=== PATIENT | female | born 1935 | race Caucasian/White ===

== ENCOUNTER → 2016-09-16 | Outpatient (CLI) | payer BC ==
[~2016-09-16] MED LIST: ATOR-24 PO; CLTP PO; CRANBERRY PO; ENAL10TA88 PO; EVS60 PO; FURO20TA PO; LCTX PO; METO1TAB69 PO; MULT-506 PO; OXYC-292 PO; PRLSR20 PO; RSTOPS OP; WARF3TAB PO
--- NOTE | 2016-09-16 15:00 | MAMMOGRAPHY REPORT ---
BILATERAL DIGITAL SCREENING MAMMOGRAM WITH CAD: 09/16/2016 CLINICAL HISTORY: Routine screening. Patient has no complaints. TECHNIQUE: Bilateral CC and MLO views were obtained. Current study was also evaluated with a Comput er Aided Detection (CAD) system. COMPARISON: Comparison is made to exams dated: 09/13/2015 mammogram, 07/26/2013 mammogram, 07/27/2014 mammogram, 07/22/2012 mammogram, 07/22/2011 mammogram, and 07/17/2010 mammogram - [facility]. BREAST COMPOSITION: There are scattered areas of fibroglandular density in both breasts. FINDINGS: A pacemaker projects over the superior left pectoralis muscle on the MLO views. There are minimal vascular calcifications in the breasts. No suspicious mass, architectural distortion or cl uster of microcalcifications is seen. IMPRESSION: ACR BI-RADS CATEGORY 1: NEGATIVE There is no mammographic evidence of malignancy. A 1 year screening mammogram is recommended. The p atient will receive written notification of the results. Approximately 10% of breast cancers are not detected with mammography. A negative mammographic repor t should not delay biopsy if a clinically suggestive mass is present. Jesika Hope M.D. ay/:09/16/2016 13:28:10 Asset Protection Detective: Manisha AJ(Eula)(M), [facility] letter sent: Normal 1/2 BI-RADS Code: ACR BI-RADS Category 1: Negative
== END | disposition home or self-care (01) ==
LOC: C.MAMM 11:17
PROVIDERS: ATTEND Obstetrics & Gynecology
DX: Z12.31 Encounter for screening mammogram for malignant neoplasm of breast (principal)

== ENCOUNTER → 2016-11-28 | Outpatient (CLI) | payer BC ==
[~2016-11-28] MED LIST changes: +METO100T44 PO; -METO1TAB69 PO
[2016-11-28 09:29] LABS: BASO ABS # 0.07 K/uL (0-0.2); COMPLETE YES; EOS % 4.7 %; HEMATOCRIT 41.2 % (37-47); IG% 0.3 %; LYMPH % 35.5 %; LYMPH ABS # 2.56 K/uL (1.2-3.4); MEAN CORPUSCULAR HEMOGLOBIN 31.5 pg (25-34); MEAN CORPUSCULAR HGB CONC 35.4 g/dl (32-36); MEAN PLATELET VOLUME 10.5 fL (7.4-10.4); NEUT % 49.5 %; PLATELET COUNT 239 K/uL (130-400); RED BLOOD COUNT 4.63 M/uL (4.2-5.4); WHITE BLOOD COUNT 7.21 K/uL (4.8-10.8)
[2016-11-28 09:57] LABS: ALT/SGPT 59 U/L (12-78); BLOOD UREA NITROGEN 15 mg/dl (7-18); BUN/CREATININE RATIO 18.4 (10-20); CALCIUM 8.8 mg/dl (8.5-10.1); CARBON DIOXIDE 30 mmol/L (21-32); CHLORIDE 106 mmol/L (98-107); CHOLESTEROL 188 mg/dl (0-200); CREATININE 0.81 mg/dl (0.60-1.20); GLUCOSE 108 mg/dl (70-99); POTASSIUM 3.9 mmol/L (3.5-5.1); SODIUM 141 mmol/L (136-145); TRIGLYCERIDES 182 mg/dl (0-150); VERY LOW DENSITY LIPOPROT CALC 36 mg/dl
[2016-11-28 10:07] LABS: ALKALINE PHOSPHATASE 87 U/L (45-117); AST/SGOT 41 U/L (15-37); CHOLESTEROL/HDL RATIO 3.8; HDL CHOLESTEROL 49 mg/dl; LDL CHOLESTEROL CALCULATED 103 mg/dl
[2016-11-28 10:15] LABS: ESTIMATED AVERAGE GLUCOSE 134 mg/dl; HA1C FLAG Normal (Normal)
[2016-11-28 10:40] LABS: RATIO 14.1 mcg/mg (0-30.0)
== END | disposition home or self-care (01) ==
LOC: C.LAB1850 08:51
PROVIDERS: ATTEND Internal Medicine
DX: M81.0 Age-related osteoporosis without current pathological fracture (principal); I48.0 Paroxysmal atrial fibrillation; E11.49 Type 2 diabetes mellitus with other diabetic neurological complication; E78.5 Hyperlipidemia, unspecified

== ENCOUNTER → 2017-02-13 | Outpatient (CLI) | payer BC | END | disposition home or self-care (01) | LOC: C.MAMM 10:45 | PROVIDERS: ATTEND Internal Medicine | DX: M81.0 Age-related osteoporosis without current pathological fracture (principal); M85.851 Other specified disorders of bone density and structure, right thigh; M85.852 Other specified disorders of bone density and structure, left thigh ==

== ENCOUNTER → 2017-06-19 | Outpatient (CLI) | payer BC | END | disposition home or self-care (01) | LOC: C.LABSPEC 16:59 | PROVIDERS: ATTEND Physician Assistant | DX: R31.9 Hematuria, unspecified (principal) ==

== ENCOUNTER → 2017-07-07 | Outpatient (CLI) | payer BC ==
[2017-07-07 10:57] LABS: ESTIMATED AVERAGE GLUCOSE 126 mg/dl; HA1C FLAG Normal (Normal)
[2017-07-07 11:29] LABS: ALT/SGPT 49 U/L (12-78); AST/SGOT 34 U/L (15-37); BLOOD UREA NITROGEN 16 mg/dl (7-18); BUN/CREATININE RATIO 20.1 (10-20); CARBON DIOXIDE 29 mmol/L (21-32); CHLORIDE 104 mmol/L (98-107); CREATININE 0.79 mg/dl (0.60-1.20); GLUCOSE 117 mg/dl (70-99); POTASSIUM 4.2 mmol/L (3.5-5.1); SODIUM 140 mmol/L (136-145)
[2017-07-07 11:31] LABS: CHOLESTEROL 158 mg/dl (0-200); CHOLESTEROL/HDL RATIO 3.2; HDL CHOLESTEROL 50 mg/dl; LDL CHOLESTEROL CALCULATED 74 mg/dl; TRIGLYCERIDES 172 mg/dl (0-150); VERY LOW DENSITY LIPOPROT CALC 34 mg/dl
== END | disposition home or self-care (01) ==
LOC: C.LAB1850 09:25
PROVIDERS: ATTEND Internal Medicine
DX: E11.49 Type 2 diabetes mellitus with other diabetic neurological complication (principal); E78.5 Hyperlipidemia, unspecified

== ENCOUNTER → 2017-09-18 | Outpatient (CLI) | payer BC ==
--- NOTE | 2017-09-18 13:45 | MAMMOGRAPHY REPORT ---
BILATERAL DIGITAL SCREENING MAMMOGRAM TOMOSYNTHESIS WITH CAD: 09/18/2017 TECHNIQUE: Breast tomosynthesis in addition to standard 2D mammography was performed. Current study was also evaluated with a Computer Aided Detection (CAD) system. COMPARISON: Comparison is made to exams dated: 09/16/2016 mammogram, 09/13/2015 mammogram, 07/27/2014 m ammogram, 07/26/2013 mammogram, 07/22/2012 mammogram, and 07/22/2011 mammogram - [facility]. BREAST COMPOSITION: There are scattered areas of fibroglandular density in both breasts. FINDINGS: No suspicious masses, calcifications, or areas of architectural distortion are noted in ei ther breast. There has been no significant interval change compared to prior exams. Pacemaker projec ts over the left pectoralis muscle on the MLO view. IMPRESSION: ACR BI-RADS CATEGORY 2: BENIGN There is no mammographic evidence of malignancy. A 1 year screening mammogram is recommended. The pa tient will receive written notification of the results. Approximately 10% of breast cancers are not detected with mammography. A negative mammographic report should not delay biopsy if a clinically suggestive mass is present. Rahel Gan M.D. /:09/18/2017 12:36:50 Marine Operations Coordinator: Ana AJ(Eula)(M), [facility] letter sent: Normal 1/2 BI-RADS Code: ACR BI-RADS Category 2: Benign
== END | disposition home or self-care (01) ==
LOC: C.MAMM 10:52
PROVIDERS: ATTEND Obstetrics & Gynecology
DX: Z12.31 Encounter for screening mammogram for malignant neoplasm of breast (principal)

== ENCOUNTER → 2017-11-10 | Outpatient (CLI) | payer BC ==
[2017-11-10 12:42] LABS: BLOOD UREA NITROGEN 20 mg/dl (7-18); CARBON DIOXIDE 28 mmol/L (21-32); CREATININE 0.87 mg/dl (0.60-1.20); GLUCOSE 126 mg/dl (70-99); SODIUM 139 mmol/L (136-145)
[2017-11-10 12:43] LABS: LDL CHOLESTEROL (DIRECT) 96 mg/dl
[2017-11-10 12:57] LABS: HEMOGLOBIN A1C 6.2 % (4.5-5.6)
== END | disposition home or self-care (01) ==
LOC: C.LAB1850 10:25
PROVIDERS: ATTEND Internal Medicine
DX: E11.49 Type 2 diabetes mellitus with other diabetic neurological complication (principal)

== ENCOUNTER 2017-12-23 19:25 | Emergency (ER) | payer BC ==
[~2017-12-23] VITALS: Ht 151.1 cm; Wt 80.5 kg
[2017-12-23 19:28] VITALS: TEMP 36.4; Ht 151.1 cm; Wt 80.5 kg
[2017-12-23 19:51] VITALS: O2SAT 98
--- NOTE | 2017-12-23 20:14 | EMERGENCY ROOM VISIT NOTE ---
History Report prepared by Ngozi: Elizabeth Marquez Under the Supervision of: Dr. Zac Castañeda M.D. First contact with patient: 19:38 Chief Complaint: NEURO SYMPTOMS Stated Complaint: LEFT HAND NUMBNESS, HEART SKIPPING BEATS-PACEMAKER History of Present Illness The patient is an 82 year old female who presents to the Emergency Room with complaints of intermittent left arm numbness starting around 5 hours ago. The patient has been feeling more wobbly and fatigued recently. She has been getting over bronchitis. She was feeling well enough to drive today. She was driving home when she started having numbness on the outside of her left arm. She also had pain which felt like a pulled muscle in her left shoulder. This resolved after 5 minutes. Around 183, she had another episode of numbness. She felt her pulse and found that it was skipping beats. She denies any leg numbness , face numbness, trouble speaking, trouble swallowing, chest pain, SOB, fever, chills, nausea, vomiting, or dizziness. She had a pacemaker placed in 2000. The battery was changed in 2009. She is on a blood thinner for a history of atrial fibrillation. She has a history of hypertension and diabetes. 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 She does not smoke. She denies any history of stroke or heart attack. Source of History: patient, family Onset: 5 hours ago Position: arm (left) Quality: numbness Timing: intermittent Associated Symptoms: + fatigue, No fevers, No chills, No chest pain, No SOB , No nausea, No vomiting Note: Pt reports irregular heart beats, left shoulder pain. Review of Systems See HPI for pertinent positives & negatives. A total of 10 systems reviewed and were otherwise negative. Past Medical & Surgical Medical Problems: (1) Hypertension (2) Type 2 diabetes mellitus Old medical records were reviewed. Nurse's notes were reviewed and I agree with. Family History FH: heart disease FH: lung disease Hypertension Social History Smoking Status: Never Smoker Alcohol Use: none Drug Use: none Marital Status: Housing Status: lives alone Occupation Status: retired Current/Historical Medications Scheduled Amoxicillin (Amoxil), Unknown Dose PO UD Atorvastatin (Lipitor), 40 MG PO Q2D Calcium Carbonate (Caltrate 600), 1 TAB PO BID Cholecalciferol (Vitamin D), 2,000 UNITS PO DAILY Cranberry (Vaccinium Macrocarp (Cranberry), 1 TAB PO DAILY Denosumab (Prolia), 60 MG INH Q6MO Enalapril (Vasotec), 10 MG PO DAILY Fish Oil (Blanco-3), 2 CAP PO DAILY Furosemide (Lasix), 20 MG PO DAILY Glipizide (Glipizide Er), 2.5 MG PO DAILY Lactobacillus (Acidophilus), 1 TAB PO DAILY Multivitamin (Multivitamin), 1 TAB PO DAILY Omeprazole (Prilosec), 20 MG PO QPM Warfarin Sod (Jantoven), 2.5 MG PO TUES & THUR Warfarin Sod (Jantoven), 5 MG PO 5XWK Allergies Coded Allergies: Sulfa Antibiotics (Verified Allergy, Intermediate, Abdominal cramping, 12/23) Adhesives (Verified Allergy, Unknown, RED;BROKEN SKIN, 12/23/17) BEE STING (Verified Allergy, Unknown, UNKNOWN, 12/23/17) Latex1 -Allergic Contact Dermititis (Verified Allergy, Unknown, RAW SKIN, 12/23/17) Pneumococcal Vaccines (Verified Allergy, Unknown, UNKNOWN, 12/23/17) Primidone (Verified Allergy, Unknown, ESSENYIAL TREMORS, 12/23/17) Enoxaparin (Verified Adverse Reaction, Unknown, NO LOVENOX PER DR BARRIENTOS 19/06 [id number] ADM, 12/23/17) Physical Exam Vital Signs Date Time Temp Pulse Resp B/P (MAP) Pulse Ox O2 Delivery O2 Flow Rate FiO2 12/23/17 22:59 69 16 180/82 96 Room Air 12/23/17 21:33 71 16 162/81 96 Room Air 12/23/17 20:31 70 12/23/17 19:51 98 Room Air 12/23/17 19:28 36.4 87 20 180/84 95 Room Air Physical Exam General: Non-ill appearing older female in no acute distress. HEENT: Normal cephalic atraumatic. Pupils are equal round and reactive to light. Extraocular movements are intact. Oropharynx is pink with moist mucous membranes. No swelling of the mouth lips or tongue. Neck: Supple with a midline trachea. No meningeal signs or stiffness, no JVD or bruits. No Stridor. Chest: Clear to auscultation bilaterally. No wheezes or rhonchi. No increased work of breathing. Heart: regular rate and rhythm. Abdomen: Soft nontender, nondistended without rebound guarding or rigidity. Extremities: No cyanosis clubbing or edema. No calf tenderness or assymetry Spine/Back. Non tender to palpation. No CVA tenderness Skin: Good turgor without rashes. Neurologic exam: Cranial nerves two through 12 are intact. Motor and sensation are intact and symmetrical throughout. Finger to nose. No pronator drift. Medical Decision & Procedures ER Provider Diagnostic Interpretation: X-ray results as stated below per interpretation by me and the radiologist. Radiology results as stated below per my review and radiologist interpretation: CHEST ONE VIEW PORTABLE HISTORY: 82 years-old Female CHEST PAIN acute atypical chest pain COMPARISON: Chest radiograph 08/28/2012 TECHNIQUE: Portable AP view of the chest FINDINGS: Cardiac silhouette is again enlarged, unchanged. Left subclavian pacer is noted with leads appearing intact. Atherosclerosis of the aorta. No pneumothorax or pleural effusion. Linear subsegmental right basilar opacities suggest atelectasis or scarring. No lobar airspace consolidation. Degenerative changes are seen within the shoulders and spine. Moderate sized hiatal hernia. IMPRESSION: 1. Cardiomegaly without overt pulmonary edema. 2. Linear subsegmental right basilar opacities suggest atelectasis or scarring. The above report was generated using voice recognition software. It may contain grammatical, syntax or spelling errors. Electronically signed by: Luke Funez M.D. 12/23/2017 8:38 PM Dictated Date/Time: 12/23/2017 8:36 PM HEAD WITHOUT CONTRAST (CT) CLINICAL HISTORY: 82 years-old Female with episode of left arm numbness. Acute left arm numbness TECHNIQUE: Multiple axial CT images of the head were obtained without contrast. A dose lowering technique was utilized adhering to the principles of ALARA. CT DOSE: 537.48 mGy.cm COMPARISON: None. FINDINGS: No acute intracranial hemorrhage, midline shift, intracranial mass, hydrocephalus, territorial ischemia or abnormal extra-axial collection. Mild atrophy with ex vacuo ventriculomegaly. Extensive areas of confluent low-attenuation within the white matter of the cerebral hemispheres bilaterally suggest chronic microvascular ischemic changes. The calvarium is intact. The paranasal sinuses, mastoid air cells, and middle ear cavities are clear. Hypoplasia of the right frontal sinus. Soft tissues and orbits are unremarkable. IMPRESSION: No acute intracranial abnormality identified. The above report was generated using voice recognition software. It may contain grammatical, syntax or spelling errors. Electronically signed by: Luke Funez M.D. 12/23/2017 10:03 PM Dictated Date/Time: 12/23/2017 10:00 PM Laboratory Results 12/23/17 20:10 Red Blood Count 4.53, Mean Corpuscular Volume 83.9, Mean Corpuscular Hemoglobin 28.3, Mean Corpuscular Hemoglobin Concent 33.7, Mean Platelet Volume 9.8, Neutrophils (%) (Auto) 50.0, Lymphocytes (%) (Auto) 35.6, Monocytes (%) (Auto) 9.0, Eosinophils (%) (Auto) 4.6, Basophils (%) (Auto) 0.7, Neutrophils # (Auto) 4.46, Lymphocytes # (Auto) 3.17, Monocytes # (Auto) 0.80, Eosinophils # (Auto) 0.41, Basophils # (Auto) 0.06 12/23/17 20:10 12/23/17 20:57 Test 12/23/17 20:10 12/23/17 20:57 White Blood Count 8.91 K/uL (4.8-10.8) Red Blood Count 4.53 M/uL (4.2-5.4) Hemoglobin 12.8 g/dL (12.0-16.0) Hematocrit 38.0 % (37-47) Mean Corpuscular Volume 83.9 fL (80-100) Mean Corpuscular Hemoglobin 28.3 pg (25-34) Mean Corpuscular Hemoglobin Concent 33.7 g/dl (32-36) Platelet Count 288 K/uL (130-400) Mean Platelet Volume 9.8 fL (7.4-10.4) Neutrophils (%) (Auto) 50.0 % Lymphocytes (%) (Auto) 35.6 % Monocytes (%) (Auto) 9.0 % Eosinophils (%) (Auto) 4.6 % Basophils (%) (Auto) 0.7 % Neutrophils # (Auto) 4.46 K/uL (1.4-6.5) Lymphocytes # (Auto) 3.17 K/uL (1.2-3.4) Monocytes # (Auto) 0.80 K/uL (0.11-0.59) Eosinophils # (Auto) 0.41 K/uL (0-0.5) Basophils # (Auto) 0.06 K/uL (0-0.2) RDW Standard Deviation 40.7 fL (36.4-46.3) RDW Coefficient of Variation 13.5 % (11.5-14.5) Immature Granulocyte % (Auto) 0.1 % Immature Granulocyte # (Auto) 0.01 K/uL (0.00-0.02) Anion Gap 6.0 mmol/L (3-11) Est Creatinine Clear Calc Drug Dose 43.3 ml/min Estimated GFR () 66.3 Estimated GFR (Non- 57.2 BUN/Creatinine Ratio 24.1 (10-20) Calcium Level 9.1 mg/dl (8.5-10.1) Total Bilirubin 0.3 mg/dl (0.2-1) Alanine Aminotransferase (ALT/SGPT) 35 U/L (12-78) Alkaline Phosphatase 87 U/L (45-117) Troponin I < 0.015 ng/ml (0-0.045) Total Protein 7.3 gm/dl (6.4-8.2) Albumin 3.4 gm/dl (3.4-5.0) Lipase 176 U/L (73-393) Thyroid Stimulating Hormone (TSH) 1.690 uIu/ml (0.300-4.500) Prothrombin Time 30.4 SECONDS (9.0-12.0) Prothromb Time International Ratio 3.0 (0.9-1.1) Activated Partial Thromboplast Time 35.5 SECONDS (21.0-31.0) Partial Thromboplastin Ratio 1.4 Direct Bilirubin < 0.1 mg/dl (0-0.2) Aspartate Amino Transf (AST/SGOT) 36 U/L (15-37) Laboratory studies as stated above per my review. ECG Per My Interpretation Indication: back/shoulder pain Rate (beats per minute): 74 Rhythm: normal sinus Findings: no acute ischemic change, other (occasional paced beat, normal intervals) Comparison ECG Date: 28-Aug-2012 Change: NSR has replaced a paced rhythm. ED Course 1946: Past medical records reviewed. The patient was evaluated in room C6, and a complete history and physical examination were performed. 2053: I reevaluated the patient. I updated her on the results. 2214: I reevaluated the patient. She is feeling better. She notes that she had her hair done today. Medical Decision Differentials include, but are not limited to; TIA, arrhythmia, ACS, infection, electrolyte or metabolic abnormality. This patient comes in after having a brief episode where she had tingling in her left lateral forearm. It last about 5 minutes and then recurred. She also felt like her heart was irregular at one point however she had no chest pain, shortness breath, or syncope. She does have a pacemaker as well as a history of A. fib and is anticoagulated with Coumadin. She has had no headache or recent illness or fever chills. This been no fall or trauma. There is no involvement of the left face or leg. No problems with her speech or swallowing or acute visual problems. She is asymptomatic at present. IV access established EKG was obtained as well as chest x-ray head CT and multiple blood testing. She was reassessed frequently. We also interrogated her pacemaker. The pacemaker had no issues according to the [employer] rep. EKG does not suggest acute coronary syndrome or significant arrhythmia. She is therapeutic on her Coumadin with an INR of 3.0. She has no elevation of her troponin. She has no acute electrolyte or metabolic abnormalities. I talked to the patient and her family at length she apparently had her hair done today and was leaning back in the sink. She had some numbness or pain in the C7 distribution laterally it may have been from her neck. She is asymptomatic at present. I did order a CT of her neck as well. This shows cervical disc disease as well as degeneration. There is moderate left-sided foraminal narrowing and mild central disc canal stenosis at C6/7. This likely explains her symptoms. She feels good and would like to go home and I think this is reasonable with close follow-up with her regular doctor. She should return if: Worsening of symptoms , fever or chills chest pain or shortness of breath, numbness weakness, any new problems or concerns. She should follow-up with regular doctor this week for recheck. Medication Reconcilliation Current Medication List: was personally reviewed by me Blood Pressure Screening Patient's blood pressure: Elevated blood pressure Impression Primary Impression: Tingling of left upper extremity Additional Impression: Cervical disc disease Scribe Attestation The scribe's documentation has been prepared under my direction and personally reviewed by me in its entirety. I confirm that the note above accurately reflects all work, treatment, procedures, and medical decision making performed by me. Departure Information Referrals Pro,Garrett Min M.D. (PCP) Patient Instructions My [facility] Problem Qualifiers
[2017-12-23 20:21] LABS: BASO % 0.7 %; BASO ABS # 0.06 K/uL (0-0.2); EOS % 4.6 %; EOS ABS # 0.41 K/uL (0-0.5); HEMOGLOBIN 12.8 g/dL (12.0-16.0); IG# 0.01 K/uL (0.00-0.02); LYMPH % 35.6 %; LYMPH ABS # 3.17 K/uL (1.2-3.4); MEAN CELL VOLUME 83.9 fL (80-100); MEAN CORPUSCULAR HEMOGLOBIN 28.3 pg (25-34); MEAN CORPUSCULAR HGB CONC 33.7 g/dl (32-36); MEAN PLATELET VOLUME 9.8 fL (7.4-10.4); NEUT ABS # 4.46 K/uL (1.4-6.5); PLATELET COUNT 288 K/uL (130-400); RED CELL DISTRIBUTION WIDTH CV 13.5 % (11.5-14.5); RED CELL DISTRIBUTION WIDTH SD 40.7 fL (36.4-46.3); WHITE BLOOD COUNT 8.91 K/uL (4.8-10.8)
--- NOTE | 2017-12-23 20:40 | DIAGNOSTIC IMAGING REPORT ---
CHEST ONE VIEW PORTABLE HISTORY: 82 years-old Female CHEST PAIN acute atypical chest pain COMPARISON: Chest radiograph 08/28/2012 TECHNIQUE: Portable AP view of the chest FINDINGS: Cardiac silhouette is again enlarged, unchanged. Left subclavian pacer is noted with leads appearing intact. Atherosclerosis of the aorta. No pneumothorax or pleural effusion. Linear subsegmental right basilar opacities suggest atelectasis or scarring. No lobar airspace consolidation. Degenerative changes are seen within the shoulders and spine. Moderate sized hiatal hernia. IMPRESSION: 1. Cardiomegaly without overt pulmonary edema. 2. Linear subsegmental right basilar opacities suggest atelectasis or scarring. The above report was generated using voice recognition software. It may contain grammatical, syntax or spelling errors. Electronically signed by: Luke Funez M.D. 12/23/2017 8:38 PM Dictated Date/Time: 12/23/2017 8:36 PM
[2017-12-23 20:41] LABS: ALBUMIN 3.4 gm/dl (3.4-5.0); ALT/SGPT 35 U/L (12-78); BLOOD UREA NITROGEN 22 mg/dl (7-18); CALCIUM 9.1 mg/dl (8.5-10.1); CARBON DIOXIDE 29 mmol/L (21-32); CREATININE 0.93 mg/dl (0.60-1.20); GLUCOSE 126 mg/dl (70-99); LIPASE 176 U/L (73-393); SODIUM 140 mmol/L (136-145)
[2017-12-23 20:49] LABS: ALKALINE PHOSPHATASE 87 U/L (45-117); TOTAL PROTEIN 7.3 gm/dl (6.4-8.2)
[2017-12-23 21:30] LABS: PTT PATIENT 35.5 SECONDS (21.0-31.0)
[2017-12-23 21:33] LABS: POTASSIUM 3.7 mmol/L (3.5-5.1)
[2017-12-23 21:38] LABS: AST/SGOT 36 U/L (15-37)
--- NOTE | 2017-12-23 22:05 | DIAGNOSTIC IMAGING REPORT ---
HEAD WITHOUT CONTRAST (CT) CLINICAL HISTORY: 82 years-old Female with episode of left arm numbness. Acute left arm numbness TECHNIQUE: Multiple axial CT images of the head were obtained without contrast. A dose lowering technique was utilized adhering to the principles of ALARA. CT DOSE: 537.48 mGy.cm COMPARISON: None. FINDINGS: No acute intracranial hemorrhage, midline shift, intracranial mass, hydrocephalus, territorial ischemia or abnormal extra-axial collection. Mild atrophy with ex vacuo ventriculomegaly. Extensive areas of confluent low-attenuation within the white matter of the cerebral hemispheres bilaterally suggest chronic microvascular ischemic changes. The calvarium is intact. The paranasal sinuses, mastoid air cells, and middle ear cavities are clear. Hypoplasia of the right frontal sinus. Soft tissues and orbits are unremarkable. IMPRESSION: No acute intracranial abnormality identified. The above report was generated using voice recognition software. It may contain grammatical, syntax or spelling errors. Electronically signed by: Luke Funez M.D. 12/23/2017 10:03 PM Dictated Date/Time: 12/23/2017 10:00 PM
[2017-12-23] MEDS ORDERED: AMOX500C3 PO (22:19)
[2017-12-23] MEDS ORDERED: LACTCAP3 PO (22:19)
[2017-12-23] MEDS ORDERED: CALCTAB5 PO (22:19)
[2017-12-23] MEDS ORDERED: DENO60SO INH (22:19)
[2017-12-23] MEDS ORDERED: CRAN1TAB3 PO (22:19)
[2017-12-23] MEDS ORDERED: WARF2.5T8 PO ×2 (22:19)
[2017-12-23] MEDS ORDERED: OMEG10007 PO (22:19)
[2017-12-23] MEDS ORDERED: CHOL20009 PO (22:19)
[2017-12-23] MEDS ORDERED: GLIP2.5T11 PO (22:19)
--- NOTE | 2017-12-23 23:00 | DIAGNOSTIC IMAGING REPORT ---
CERVICAL SPINE W/O CT DOSE: 250.55 mGy.cm CLINICAL HISTORY: 82 years-old Female with eval for left arm lat tingling. Acute left arm tingling with neck pain COMPARISON: CT head of same day TECHNIQUE: Multiple axial CT images of the cervical spine were obtained without contrast. A dose lowering technique was utilized adhering to the principles of ALARA. FINDINGS: Mastoid air cells and middle ear cavities are clear. Imaged paranasal sinuses are also generally clear. Left subclavian pacer leads are partially imaged. There is no acute cervical spine fracture or subluxation identified. The bones appear mildly demineralized. Moderate intervertebral disc space narrowing is seen at C5-C6 and C6-C7. Severe right-sided facet arthrosis at C2-C3 with at least moderate multilevel facet arthropathy. Multilevel uncovertebral spurring. There is mild left-sided foraminal narrowing at C3-C4 with mild bilateral foraminal narrowing at C5-C6. Moderate posterior disc osteophyte complex formation at C6-C7 with facet arthrosis results in moderate left-sided foraminal narrowing and mild central canal stenosis. Lung apices are clear. Multinodular thyroid goiter. Atherosclerosis of the bilateral carotid vasculature with medial course of the common carotid arteries. IMPRESSION: 1. No acute fracture or subluxation of the cervical spine. 2. Multilevel intervertebral disc space narrowing and facet arthrosis as above. Intervertebral disc space narrowing with posterior disc osteophyte complex formation and facet arthrosis results in moderate left-sided foraminal narrowing and mild central canal stenosis at C6-C7. The above report was generated using voice recognition software. It may contain grammatical, syntax or spelling errors. Electronically signed by: Luke Funez M.D. 12/23/2017 10:59 PM Dictated Date/Time: 12/23/2017 10:50 PM
[2017-12-23 23:39] VITALS: BP 174/81; PULSE 65; O2SAT 97
== END 2017-12-23 23:39 | disposition home or self-care (01) ==
LOC: C.EDB 19:26 → C.EDC 23:39
DX: R20.2 Paresthesia of skin (principal); M50.90 Cervical disc disorder, unspecified, unspecified cervical region; Z95.0 Presence of cardiac pacemaker; I48.91 Unspecified atrial fibrillation; I10 Essential (primary) hypertension; E11.9 Type 2 diabetes mellitus without complications; Z82.49 Family history of ischemic heart disease and other diseases of the circulatory system; Z79.01 Long term (current) use of anticoagulants; Z79.899 Other long term (current) drug therapy; Z79.84 Long term (current) use of oral hypoglycemic drugs; Z88.2 Allergy status to sulfonamides; Z91.040 Latex allergy status; Z88.6 Allergy status to analgesic agent; Z91.030 Bee allergy status; Z91.048 Other nonmedicinal substance allergy status; Z88.7 Allergy status to serum and vaccine

== ENCOUNTER → 2018-01-10 | Outpatient (CLI) | payer BC ==
[~2018-01-10] MED LIST changes: +AMOX500C3 PO; +CALCTAB5 PO; +CHOL20009 PO; -CLTP PO; +CRAN1TAB3 PO; -CRANBERRY PO; +DENO60SO INH; -EVS60 PO; +GLIP2.5T11 PO; +LACTCAP3 PO; -LCTX PO; -METO100T44 PO; +OMEG10007 PO; -OXYC-292 PO; -RSTOPS OP; +WARF2.5T8 PO; -WARF3TAB PO
== END | disposition home or self-care (01) ==
LOC: C.LABSPEC 11:49
PROVIDERS: ATTEND Internal Medicine
DX: R39.9 Unspecified symptoms and signs involving the genitourinary system (principal)

== ENCOUNTER → 2018-04-14 | Outpatient (CLI) | payer BC ==
[2018-04-14 09:48] LABS: ALT/SGPT 28 U/L (12-78); AST/SGOT 26 U/L (15-37); BLOOD UREA NITROGEN 18 mg/dl (7-18); CALCIUM 9.2 mg/dl (8.5-10.1); CARBON DIOXIDE 28 mmol/L (21-32); CHOLESTEROL 163 mg/dl (0-200); CREATININE 0.82 mg/dl (0.60-1.20); GLUCOSE 114 mg/dl (70-99); HEMOGLOBIN A1C 6.6 % (4.5-5.6); LDL CHOLESTEROL CALCULATED 71 mg/dl; POTASSIUM 4.1 mmol/L (3.5-5.1); SODIUM 140 mmol/L (136-145)
== END | disposition home or self-care (01) ==
LOC: C.LAB1850 08:26
PROVIDERS: ATTEND Internal Medicine
DX: E78.5 Hyperlipidemia, unspecified (principal); M81.0 Age-related osteoporosis without current pathological fracture; E11.49 Type 2 diabetes mellitus with other diabetic neurological complication

== ENCOUNTER 2018-11-30 21:39 | Inpatient (IN) ==
[2018-11-30] MEDS ORDERED: METOPROLOL TARTRATE 1 MG/ML VIAL IV STA ×2 (22:08→23:04)
[2018-11-30 22:16] LABS: Basophils # (auto) 0.07 K/uL (0-0.2); Basophils % (auto) 0.6 %; Eosinophils # (auto) 0.22 K/uL (0-0.5); Hematocrit (blood only) 40.1 % (37-47); Hemoglobin 13.5 g/dL (12.0-16.0); Immature Granulocytes # (auto) 0.03 K/uL (0.00-0.02); Immature Granulocytes % (auto) 0.3 %; Lymphocytes % (auto) 37.2 %; Mean Corpuscular Hgb Conc 33.7 g/dL (32-36); Mean Corpuscular Volume 87.4 fL (80-100); Mean Platelet Volume 9.9 fL (7.4-10.4); Monocytes # (auto) 0.83 K/uL (0.11-0.59); Monocytes % (auto) 7.5 %; Neutrophils # (auto) 5.77 K/uL (1.4-6.5); Neutrophils % (auto) 52.4 %; Platelet Count 301 K/uL (130-400); RDW Coefficient of Variation 13.6 % (11.5-14.5); RDW Standard Deviation 43.2 fL (36.4-46.3); Red Blood Count 4.59 M/uL (4.2-5.4); White Blood Count 11.02 K/uL (4.8-10.8)
[2018-11-30 22:28] LABS: D Dimer 320 ug/L FEU (0-500); INR 3.2 (0.9-1.1); Partial Thromboplastin Ratio 1.2; Partial Thromboplastin Time 33.6 Seconds (21.0-31.0); Prothrombin Time 30.4 Seconds (9.0-12.0)
[2018-11-30] MEDS ORDERED: SODIUM CHLORIDE 0.9% 1000ML 500 ML IV ONE (22:34)
[2018-11-30 22:41] LABS: Albumin Level 3.5 gm/dl (3.4-5.0); BUN Creatinine Ratio 31.1 (10-20); Calcium 10.3 mg/dl (8.5-10.1); Creatinine Clr Calc Pharmacy 38.7 ml/min; Est GFR (African American) 57.9; Magnesium 1.9 mg/dl (1.8-2.4)
--- NOTE | 2018-11-30 22:42 | XRay Report ---
SINGLE VIEW CHEST CLINICAL HISTORY: Dyspnea. FINDINGS: An AP, portable, upright chest radiograph is compared to study dated 01/11/2018. The examina tion is degraded by portable technique and patient rotation. Hiatal hernia is suspected. A 2-lead car diac pacemaker is unchanged in position. The heart is enlarged and there is atherosclerotic calcifica tion of the thoracic aorta. The pulmonary vasculature is noncongested. Chronic interstitial thickenin g is similar to previous. No airspace consolidation or large pleural effusion is seen. No pneumothora x is identified. The skeletal structures are osteopenic. The bony thorax is grossly intact. IMPRESSION: 1. Cardiomegaly and cardiac pacemaker. There is no radiographic evidence of congestive failure. 2. No airspace consolidation or large pleural effusion is identified. Electronically signed by: Hermilo Griffin M.D. 11/30/2018 10:41 PM
[2018-11-30 22:48] LABS: Albumin Globulin Ratio 0.9 (0.9-2); Bilirubin,Total 0.2 mg/dl (0.2-1); Total Protein 7.5 gm/dl (6.4-8.2); Troponin I 0.081 ng/ml (0-0.045)
--- NOTE | 2018-11-30 23:09 | Emergency Department Note ---
Entered by Zoey Santiago acting as a scribe for History of Present Illness General Chief complaint: Shortness of Breath/Dyspnea Stated complaint: SOB, EXTREME FATIGUE- PACEMAKER Time Seen by Provider: 11/30/18 21:47 Source: patient Mode of arrival: ambulatory Limitations: no limitations History of Present Illness Provider complaint: shortness of breath Onset (ago): day(s) (yesterday) Location: chest Pain Consistency: + other (worsening) Quality: + other (shortness of breath) Associated symptoms: + denies other symptoms (leg pain, leg swelling, hematochezia, melena) and + other (tired); no chest pain and no fever/chills The patient is an 82 year old female who presents to the Emergency Room with complaints of a worsening shortness of breath that began yesterday. The patient reports that yesterday morning she woke up with an upset stomach upon waking up and that she was feeling more short of breath and tired as the day went on. She states that her symptoms worsened today. She denies any chest pain, fevers, leg pain, or swelling. The patient notes that her current symptoms feel similar to when her pacemaker was not working. 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 She states that she is currently on Coumadin and a water pill. She denies any heamtochezia or melena. She denies missing any medication doses today. She also denies having a stress test performed recently. Home Medications Home Medications Medication Instructions Recorded Confirmed Type Caltrate 600 + D 1 tab PO BID 06/23/18 11/30/18 History Lactobacillus acidophilus 460 mg PO QAM 06/23/18 11/30/18 History [Acidophilus] [place]-3 2 cap PO QAM 06/23/18 11/30/18 History Prolia 60 mg SUBCUT .EVERY 6 MONTHS 06/23/18 11/30/18 History amoxicillin 500 mg PO UD PRN 06/23/18 11/30/18 History atorvastatin 40 mg PO Q2D 06/23/18 11/30/18 History cholecalciferol (vitamin D3) 2,000 unit PO DAILY 06/23/18 11/30/18 History [Vitamin D3] cranberry 500 mg PO QAM 06/23/18 11/30/18 History enalapril maleate 10 mg PO QAM 06/23/18 11/30/18 History furosemide [Lasix] 20 mg PO QAM 06/23/18 11/30/18 History glipizide 2.5 mg PO QPM 06/23/18 11/30/18 History metoprolol succinate 100 mg PO QPM 06/23/18 11/30/18 History multivitamin 1 tab PO DAILY 06/23/18 11/30/18 History omeprazole 20 mg PO Q2D 06/23/18 11/30/18 History warfarin 2.5 mg PO UD 06/23/18 11/30/18 History Allergies Allergy/AdvReac Type Severity Reaction Status Date / Time Sulfa (Sulfonamide Allergy Intermediate Abdominal Verified 11/30/18 23:44 Antibiotics) cramping adhesive Allergy Mild RED;BROKEN Verified 11/30/18 23:44 SKIN bee venom protein (honey bee) Allergy Mild SWELLING Verified 11/30/18 23:44 ciprofloxacin [From Cipro] Allergy Mild LOWER LEG Verified 11/30/18 23:44 SWELLING latex Allergy Mild RAW SKIN Verified 11/30/18 23:44 primidone AdvReac Intermediate ESSENTIAL Verified 11/30/18 23:44 TREMORS pneumococcal vaccine AdvReac Mild DISCOMFORT Verified 11/30/18 23:44 enoxaparin AdvReac Unknown NO LOVENOX Verified 11/30/18 23:[address] BARRIENTOS 11/17/09 [id number] ADM Past Med/Surg History Medical History Asthmatic bronchitis no inhaler used at this time Atrial fibrillation Diabetes mellitus, type 2 Essential tremor GERD (gastroesophageal reflux disease) Hearing deficit Hyperlipidemia Hypertension Osteoarthritis Pacemaker BRADYCARDIA Perforated bowel Surgical History History of bowel resection WITH COLOSTOMY S/P BOWEL PERFORATION 1992 History of cataract surgery RT/LEFT History of colonoscopy History of colostomy reversal History of esophagogastroduodenoscopy (EGD) History of tooth extraction History of total knee replacement RT/LEFT Uterine fibroid REMOVED Social History Communication Ability: Effective Beliefs That Will Affect Care: None Current Living Situation: Alone Other Information That Helps Us Care for You: No Feels Safe at Home: Yes Safety Concerns: Feels Safe At This Time Smoking Status: Never smoker Hx Alcohol Use: No Hx Substance Use: No Review of Systems See HPI for pertinent positives & negatives. and A total of 10 systems reviewed and were otherwise negative Physical Exam Vital Signs Vital Signs - 24 hr 11/30/18 21:43 11/30/18 22:01 11/30/18 22:02 Temperature 36.4 C L Temperature Source Oral Sepsis Recent Fever Within 48 Hours No Sepsis New/Unexplained Change in Mental Status No Sepsis Action Taken by Nursing No Action Required Pulse Rate 125 H Pulse Rate [Right Finger] 127 H Pulse Rhythm Regular Pulse Rhythm [Right Finger] Pulse Strength Normal Pulse Strength [Right Finger] Respiratory Rate 20 18 Respiratory Effort / Characteristics Non-Labored Spontaneous Non-Labored Spontaneous Respiratory Depth Normal Normal Respiratory Pattern Regular Regular Blood Pressure 142/91 H Blood Pressure [Left Arm] 157/90 H Blood Pressure [Right Arm] Blood Pressure Mean 108 Blood Pressure Mean [Left Arm] 112 Blood Pressure Mean [Right Arm] Blood Pressure Position Sitting Blood Pressure Position [Left Arm] Blood Pressure Position [Right Arm] Pulse Oximetry 95 94 96 Oxygen Delivery Method Room Air Room Air Room Air 11/30/18 22:14 11/30/18 22:23 11/30/18 22:55 Temperature Temperature Source Sepsis Recent Fever Within 48 Hours Sepsis New/Unexplained Change in Mental Status Sepsis Action Taken by Nursing Pulse Rate 115 H Pulse Rate [Right Finger] 125 H 105 H Pulse Rhythm Pulse Rhythm [Right Finger] Pulse Strength Pulse Strength [Right Finger] Respiratory Rate 18 20 Respiratory Effort / Characteristics Non-Labored Spontaneous Respiratory Depth Normal Respiratory Pattern Regular Blood Pressure 157/90 H Blood Pressure [Left Arm] 112/82 113/92 Blood Pressure [Right Arm] Blood Pressure Mean Blood Pressure Mean [Left Arm] 92 99 Blood Pressure Mean [Right Arm] Blood Pressure Position Blood Pressure Position [Left Arm] Blood Pressure Position [Right Arm] Pulse Oximetry 95 94 Oxygen Delivery Method Room Air Room Air 12/01/18 00:16 12/01/18 00:49 12/01/18 03:05 Temperature 36.6 C 37.2 C Temperature Source Oral Oral Sepsis Recent Fever Within 48 Hours Sepsis New/Unexplained Change in Mental Status Sepsis Action Taken by Nursing Pulse Rate Pulse Rate [Right Finger] 121 H 102 H 104 H Pulse Rhythm Pulse Rhythm [Right Finger] Irregular Pulse Strength Pulse Strength [Right Finger] Normal Respiratory Rate 20 16 18 Respiratory Effort / Characteristics Non-Labored Spontaneous Respiratory Depth Normal Respiratory Pattern Regular Blood Pressure Blood Pressure [Left Arm] 110/81 119/75 Blood Pressure [Right Arm] 120/73 Blood Pressure Mean Blood Pressure Mean [Left Arm] 90 89 Blood Pressure Mean [Right Arm] 88 Blood Pressure Position Blood Pressure Position [Left Arm] Semi-fowlers Blood Pressure Position [Right Arm] Pulse Oximetry 93 96 97 Oxygen Delivery Method Room Air Room Air Room Air 12/01/18 12:19 12/01/18 15:03 Temperature 36.5 C 36.6 C Temperature Source Oral Oral Sepsis Recent Fever Within 48 Hours Sepsis New/Unexplained Change in Mental Status Sepsis Action Taken by Nursing Pulse Rate Pulse Rate [Right Finger] 127 H 125 H Pulse Rhythm Pulse Rhythm [Right Finger] Regular Pulse Strength Pulse Strength [Right Finger] Respiratory Rate 20 18 Respiratory Effort / Characteristics Non-Labored Spontaneous Respiratory Depth Normal Respiratory Pattern Regular Blood Pressure Blood Pressure [Left Arm] Blood Pressure [Right Arm] 136/82 135/85 Blood Pressure Mean Blood Pressure Mean [Left Arm] Blood Pressure Mean [Right Arm] 100 101 Blood Pressure Position Blood Pressure Position [Left Arm] Blood Pressure Position [Right Arm] Lying Lying Pulse Oximetry 95 94 Oxygen Delivery Method Room Air Room Air GENERAL: Patient is awake, alert, and in no acute distress.Patient is resting comfortably and showing no signs of anxiety EYES: The conjunctivae are clear. The pupils are round and reactive. EARS, NOSE, MOUTH AND THROAT: The nose is without any evidence of any deformity. Mucous membranes are moist.Tongue is midline NECK: The neck is nontender and supple. RESPIRATORY: Breath sounds diminished at the bases with rales at both bases. There was no conversational dyspnea. CARDIOVASCULAR: Tachycardic and irregular. No definite murmur noted to auscultation. GASTROINTESTINAL: The abdomen is soft. Bowel sounds are present in all quadrants. Abdomen is nontender. MUSCULOSKELETAL/EXTREMITIES: There is no evidence of gross deformity. Full range of motion is noted in the hips and shoulders. SKIN: There is no obvious evidence of any rash. There are no petechiae, pallor or cyanosis noted. Trace pedal edema bilaterally. NEUROLOGIC: Patient is awake alert and oriented x3. Course 2151: The patient was evaluated in room A2, and a complete history and physical examination were performed. 2300: I reviewed the patient's case with Dr. Duran - [facility] Hospitalist. She will evaluate the patient for further management. Administered Medications Atorvastatin Calcium (Lipitor) 40 mg PO DAILY NEISHA Stop: 12/31/18 08:59 Last Admin: 12/01/18 08:46 Dose: 40 mg Documented by: [id number] Enalapril Maleate (Vasotec) 10 mg PO QAM [facility] Stop: 12/31/18 08:59 Last Admin: 12/01/18 08:49 Dose: Not Given Documented by: [id number] Furosemide (Lasix) 20 mg PO QAM [facility] Stop: 12/31/18 08:59 Last Admin: 12/01/18 08:46 Dose: 20 mg Documented by: [id number] Sodium Chloride (Nss 1000ml) 1,000 mls @ 80 mls/hr IV .[id number] [facility] Stop: 12/31/18 01:29 Last Admin: 12/01/18 14:59 Dose: 80 mls/hr Documented by: [id number] Infusion: 12/01/18 14:18 Dose: 80 mls/hr Documented by: [id number] Admin: 12/01/18 01:48 Dose: 80 mls/hr Documented by: [id number] Diltiazem HCl 125 mg/ Dextrose 125 mls @ 5 mls/hr IV .Q24H [facility]; Protocol Stop: 12/31/18 16:14 Last Admin: 12/01/18 16:41 Dose: 5 mg/hr, 5 mls/hr Documented by: [id number] Cosigned by: [id number] Insulin Aspart (Novolog Flexpen) 0 units SC ACHS [facility] Stop: 12/31/18 07:29 Last Admin: 12/01/18 17:20 Dose: 3 units Documented by: [id number] Cosigned by: [id number] Admin: 12/01/18 12:21 Dose: Not Given Documented by: [id number] Cosigned by: [id number] Admin: 12/01/18 08:45 Dose: 3 units Documented by: [id number] Cosigned by: [id number] Multivitamins/Minerals (Caltrate Plus) 1 tab PO BID [facility] Stop: 12/31/18 08:59 Last Admin: 12/01/18 08:47 Dose: 1 tab Documented by: [id number] Pantoprazole Sodium (Protonix) 40 mg PO Q2D [facility] Stop: 12/31/18 08:59 Last Admin: 12/01/18 08:47 Dose: 40 mg Documented by: [id number] Vitamin D (Vitamin D3) 2,000 units PO DAILY [facility] Stop: 12/31/18 08:59 Last Admin: 12/01/18 08:47 Dose: 2,000 units Documented by: [id number] Discontinued Medications Sodium Chloride (Nss 1000ml) 500 mls @ 999 mls/hr IV .Q31M ONE Stop: 11/30/18 23:04 Last Infusion: 11/30/18 23:33 Dose: 0 mls/hr Documented by: [id number] Admin: 11/30/18 22:47 Dose: 999 mls/hr Documented by: [id number] Metoprolol Succinate (Toprol Xl) 100 mg PO NOW STA Stop: 12/01/18 16:06 Last Admin: 12/01/18 16:36 Dose: 100 mg Documented by: [id number] Metoprolol Tartrate (Lopressor) 5 mg IV NOW STA Stop: 11/30/18 22:09 Last Admin: 11/30/18 22:14 Dose: 5 mg Documented by: [id number] Metoprolol Tartrate (Lopressor) 5 mg IV NOW STA Stop: 11/30/18 23:05 Last Admin: 11/30/18 23:10 Dose: 5 mg Documented by: [id number] Medical Decision Making Differential Diagnosis Differential diagnoses includes but is not limited to: pneumonia, bronchitis, COPD/Asthma exacerbation, pneumothorax, pulmonary embolism, congestive heart failure, and acute coronary syndrome. Home Medications Current Medication List: was personally reviewed by me Laboratory Data Attestation: I reviewed the patient's lab results. Result diagrams: 12/01/18 06:26 12/01/18 06:26 Lab Results 11/30/18 11/30/18 11/30/18 Range/Units 22:04 22:04 22:04 WBC 11.02 H (4.8-10.8) K/uL RBC 4.59 (4.2-5.4) M/uL Hgb 13.5 (12.0-16.0) g/dL Hct 40.1 (37-47) % MCV 87.4 (80-100) fL MCH 29.4 (25-34) pg MCHC 33.7 (32-36) g/dL RDW Std Deviation 43.2 (36.4-46.3) fL RDW Coeff of Pepe 13.6 (11.5-14.5) % Plt Count 301 (130-400) K/uL MPV 9.9 (7.4-10.4) fL Immature Gran % (Auto) 0.3 % Neut % (Auto) 52.4 % Lymph % (Auto) 37.2 % [place] % (Auto) 7.5 % Eos % (Auto) 2.0 % Baso % (Auto) 0.6 % Immature Gran # (Auto) 0.03 H (0.00-0.02) K/uL Neut # (Auto) 5.77 (1.4-6.5) K/uL Lymph # (Auto) 4.10 H (1.2-3.4) K/uL [place] # (Auto) 0.83 H (0.11-0.59) K/uL Eos # (Auto) 0.22 (0-0.5) K/uL Baso # (Auto) 0.07 (0-0.2) K/uL PT 30.4 H (9.0-12.0) Seconds INR 3.2 H (0.9-1.1) APTT 33.6 H (21.0-31.0) Seconds PTT Ratio 1.2 D-Dimer 320 (0-500) ug/L FEU Sodium 142 (136-145) mmol/L Potassium 4.0 (3.5-5.1) mmol/L Chloride 106 (98-107) mmol/L Carbon Dioxide 29 (21-32) mmol/L Anion Gap 7.0 (3-11) BUN 32 H (7-18) mg/dl Creatinine 1.04 (0.6-1.2) mg/dl Est Cr Clr Drug Dosing 38.7 ml/min Est GFR ( Amer) 57.9 Est GFR (Non-Af Amer) 50.0 BUN/Creatinine Ratio 31.1 H (10-20) Glucose 115 H (70-99) mg/dl POC Glucose (70-99) Calcium 10.3 H (8.5-10.1) mg/dl Ionized Calcium (1.12-1.32) mmol/L Phosphorus 4.1 (2.5-4.9) mg/dl Magnesium 1.9 (1.8-2.4) mg/dl Total Bilirubin 0.2 (0.2-1) mg/dl AST 29 (15-37) U/L ALT 34 (12-78) U/L Alkaline Phosphatase 82 (45-117) U/L Troponin I 0.081 H* (0-0.045) ng/ml Total Protein 7.5 (6.4-8.2) gm/dl Albumin 3.5 (3.4-5.0) gm/dl Globulin 4.0 (2.5-4.0) gm/dl Albumin/Globulin Ratio 0.9 (0.9-2) 12/01/18 12/01/18 12/01/18 Range/Units 06:26 06:26 06:26 WBC 9.64 (4.8-10.8) K/uL RBC 4.30 (4.2-5.4) M/uL Hgb 12.5 (12.0-16.0) g/dL Hct 37.9 (37-47) % MCV 88.1 (80-100) fL MCH 29.1 (25-34) pg MCHC 33.0 (32-36) g/dL RDW Std Deviation 44.4 (36.4-46.3) fL RDW Coeff of Pepe 13.7 (11.5-14.5) % Plt Count 238 (130-400) K/uL MPV 9.9 (7.4-10.4) fL Immature Gran % (Auto) 0.2 % Neut % (Auto) 57.2 % Lymph % (Auto) 30.4 % [place] % (Auto) 8.8 % Eos % (Auto) 2.9 % Baso % (Auto) 0.5 % Immature Gran # (Auto) 0.02 (0.00-0.02) K/uL Neut # (Auto) 5.51 (1.4-6.5) K/uL Lymph # (Auto) 2.93 (1.2-3.4) K/uL [place] # (Auto) 0.85 H (0.11-0.59) K/uL Eos # (Auto) 0.28 (0-0.5) K/uL Baso # (Auto) 0.05 (0-0.2) K/uL PT 31.8 H (9.0-12.0) Seconds INR 3.4 H (0.9-1.1) APTT (21.0-31.0) Seconds PTT Ratio D-Dimer (0-500) ug/L FEU Sodium 143 (136-145) mmol/L Potassium 4.2 (3.5-5.1) mmol/L Chloride 110 H (98-107) mmol/L Carbon Dioxide 28 (21-32) mmol/L Anion Gap 5.0 (3-11) BUN 28 H (7-18) mg/dl Creatinine 0.90 (0.6-1.2) mg/dl Est Cr Clr Drug Dosing 44.4 ml/min Est GFR ( Amer) 68.5 Est GFR (Non-Af Amer) 59.1 BUN/Creatinine Ratio 31.0 H (10-20) Glucose 134 H (70-99) mg/dl POC Glucose (70-99) Calcium 9.1 (8.5-10.1) mg/dl Ionized Calcium (1.12-1.32) mmol/L Phosphorus (2.5-4.9) mg/dl Magnesium (1.8-2.4) mg/dl Total Bilirubin (0.2-1) mg/dl AST (15-37) U/L ALT (12-78) U/L Alkaline Phosphatase (45-117) U/L Troponin I 0.098 H* (0-0.045) ng/ml Total Protein (6.4-8.2) gm/dl Albumin (3.4-5.0) gm/dl Globulin (2.5-4.0) gm/dl Albumin/Globulin Ratio (0.9-2) 12/01/18 12/01/18 12/01/18 Range/Units 06:26 07:29 11:41 WBC (4.8-10.8) K/uL RBC (4.2-5.4) M/uL Hgb (12.0-16.0) g/dL Hct (37-47) % MCV (80-100) fL MCH (25-34) pg MCHC (32-36) g/dL RDW Std Deviation (36.4-46.3) fL RDW Coeff of Pepe (11.5-14.5) % Plt Count (130-400) K/uL MPV (7.4-10.4) fL Immature Gran % (Auto) % Neut % (Auto) % Lymph % (Auto) % [place] % (Auto) % Eos % (Auto) % Baso % (Auto) % Immature Gran # (Auto) (0.00-0.02) K/uL Neut # (Auto) (1.4-6.5) K/uL Lymph # (Auto) (1.2-3.4) K/uL [place] # (Auto) (0.11-0.59) K/uL Eos # (Auto) (0-0.5) K/uL Baso # (Auto) (0-0.2) K/uL PT (9.0-12.0) Seconds INR (0.9-1.1) APTT (21.0-31.0) Seconds PTT Ratio D-Dimer (0-500) ug/L FEU Sodium (136-145) mmol/L Potassium (3.5-5.1) mmol/L Chloride (98-107) mmol/L Carbon Dioxide (21-32) mmol/L Anion Gap (3-11) BUN (7-18) mg/dl Creatinine (0.6-1.2) mg/dl Est Cr Clr Drug Dosing ml/min Est GFR ( Amer) Est GFR (Non-Af Amer) BUN/Creatinine Ratio (10-20) Glucose (70-99) mg/dl POC Glucose 125 H 103 H (70-99) Calcium (8.5-10.1) mg/dl Ionized Calcium 1.16 (1.12-1.32) mmol/L Phosphorus (2.5-4.9) mg/dl Magnesium (1.8-2.4) mg/dl Total Bilirubin (0.2-1) mg/dl AST (15-37) U/L ALT (12-78) U/L Alkaline Phosphatase (45-117) U/L Troponin I (0-0.045) ng/ml Total Protein (6.4-8.2) gm/dl Albumin (3.4-5.0) gm/dl Globulin (2.5-4.0) gm/dl Albumin/Globulin Ratio (0.9-2) 12/01/18 12/01/18 Range/Units 12:53 16:35 WBC (4.8-10.8) K/uL RBC (4.2-5.4) M/uL Hgb (12.0-16.0) g/dL Hct (37-47) % MCV (80-100) fL MCH (25-34) pg MCHC (32-36) g/dL RDW Std Deviation (36.4-46.3) fL RDW Coeff of Pepe (11.5-14.5) % Plt Count (130-400) K/uL MPV (7.4-10.4) fL Immature Gran % (Auto) % Neut % (Auto) % Lymph % (Auto) % [place] % (Auto) % Eos % (Auto) % Baso % (Auto) % Immature Gran # (Auto) (0.00-0.02) K/uL Neut # (Auto) (1.4-6.5) K/uL Lymph # (Auto) (1.2-3.4) K/uL [place] # (Auto) (0.11-0.59) K/uL Eos # (Auto) (0-0.5) K/uL Baso # (Auto) (0-0.2) K/uL PT (9.0-12.0) Seconds INR (0.9-1.1) APTT (21.0-31.0) Seconds PTT Ratio D-Dimer (0-500) ug/L FEU Sodium (136-145) mmol/L Potassium (3.5-5.1) mmol/L Chloride (98-107) mmol/L Carbon Dioxide (21-32) mmol/L Anion Gap (3-11) BUN (7-18) mg/dl Creatinine (0.6-1.2) mg/dl Est Cr Clr Drug Dosing ml/min Est GFR ( Amer) Est GFR (Non-Af Amer) BUN/Creatinine Ratio (10-20) Glucose (70-99) mg/dl POC Glucose 141 H (70-99) Calcium (8.5-10.1) mg/dl Ionized Calcium (1.12-1.32) mmol/L Phosphorus (2.5-4.9) mg/dl Magnesium (1.8-2.4) mg/dl Total Bilirubin (0.2-1) mg/dl AST (15-37) U/L ALT (12-78) U/L Alkaline Phosphatase (45-117) U/L Troponin I 0.068 H* (0-0.045) ng/ml Total Protein (6.4-8.2) gm/dl Albumin (3.4-5.0) gm/dl Globulin (2.5-4.0) gm/dl Albumin/Globulin Ratio (0.9-2) Imaging Data Radiologist's Impression: Radiology results as stated below per my review and the radiologist's interpretation: SINGLE VIEW CHEST CLINICAL HISTORY: Dyspnea. FINDINGS: An AP, portable, upright chest radiograph is compared to study dated 01/11/2018. The examination is degraded by portable technique and patient rotati on. Hiatal hernia is suspected. A 2-lead cardiac pacemaker is unchanged in position. The heart is enlarged and there is atherosclerotic calcification of the thoracic aorta. The pulmonary vasculature is noncongested. Chronic interstitial thickening is similar to previous. No airspace consolidation or large pleural effusion is seen. No pneumothorax is identified. The skeletal structures are osteopenic. The bony thorax is grossly intact. IMPRESSION: 1. Cardiomegaly and cardiac pacemaker. There is no radiographic evidence of congestive failure. 2. No airspace consolidation or large pleural effusion is identified. Electronically signed by: Hermilo Griffin M.D. 11/30/2018 10:41 PM ECG Data Attestation: I personally reviewed and interpreted this ECG as follows: Indication: SOB/dyspnea Rate (beats per minute): 127 Rhythm: atrial fibrillation Findings: + other (RVR, low voltage) and + ST depression (diffuse); no PVC Comparison ECG Date: from (23-DEC-2017) Change: the following changes noted (new) Blood Pressure Blood Pressure Findings: Normal blood pressure Blood Pressure Disposition: did not require urgent referral MDM Narrative The patient is an 82-year-old female who presented to the emergency department for an evaluation of shortness of breath dyspnea on exertion as well as palpitations. The patient is a history of rapid atrial fibrillation in the past. She does have a pacemaker. She has had problems with her battery in her pacemaker needing replaced. The patient states that she has had similar episodes in the past whenever her pacemaker was malfunctioning. The patient presented to the emergency department with rapid atrial fibrillation. She was treated with Lopressor as well as IV fluids. On reevaluation she felt better at rest. I discussed the patient's laboratory and radiographic studies with her. She was found to have a mild elevation in her troponin. It does appear that the patient may be having symptomatic rapid atrial fibrillation but it is possible that her pacemaker is malfunctioning at this time. The pacemaker was interrogated and that report is pending at this time. I discussed the patient's condition with the on-call [facility] hospitalist. They have agreed to evaluate the patient in the emergency department for further management and disposition. Impression & Plan BALDERAS (dyspnea on exertion), Atrial fibrillation with rapid ventricular response, Elevated troponin Discharge Plan Visit Data *Final* Discharge Date/Time: 12/01/18 00:24 Chief Complaint: Shortness of Breath/Dyspnea Stated Complaint: SOB, EXTREME FATIGUE- PACEMAKER ED Provider: Garrett Martinez Discharge Problem: BALDERAS (dyspnea on exertion), Atrial fibrillation with rapid ventricular response, Elevated troponin Patient Disposition: Admitted As Inpatient Discharge Instructions Interventions: ED Discharge Assessment Last Done: 12/01/18 00:24 The scribe's documentation has been prepared under my direction and personally reviewed by me in its entirety. I confirm that the note above accurately reflects all work, treatment, procedures, and medical decision making performed by me.
--- NOTE | 2018-12-01 00:26 | History & Physical Report ---
Date of Service December 01, 2018 Assessment & Plan (1) BALDERAS (dyspnea on exertion): Symptoms have been ongoing for >24 hours. Patient denies CP, palpitations, edema, orthopnea. May be related to RVR, less likely ACS/ischemic event. Patient with no underlying lung disease. No evidence of CHF on exam or imaging -Admit to PCU -Continuous cardiac monitoring -Pacer interrogation -Trend troponin q 8 hours x 3 sets -Check 2D echo in the AM -Cardiology consultation - appreciate assistance with this case (2) Atrial fibrillation with rapid ventricular response: Patient with history of PAF. She has a dual chamber pacemaker in place for history of complete heart block. Follows with Dr. Moreira in device clinic, last seen on 28 September 2018. At that time she was pacing 14% of the time. No AF noted on interrogation. -Continue Metoprolol 100mg po qPM, consider increasing to BID -Conitnue to monitor -Echo, troponin as above -INR = 3.2, patient on Coumadin. Will hold for now and repeat INR in AM (3) Elevated troponin: Patient with no CP, no EKG evidence of ischemia. ?demand ischemia, supply/demand mismatch rather than ACS -Trend troponin q 8 hours -Echo in AM -Cardiology consultation -Continue Metoprolol -Increase statin to daily (4) Type 2 diabetes mellitus: Well controlled with minimal Glipizide -Hold Glipizide while inpatient -ISS -CC diet as tolerated (5) Hypertension: Blood pressure well controlled. -Continue Metoprolol -Continue Enalapril -Continue Lasix -Continue to monitor (6) Hyperlipidemia: Chronic -Continue Atorvastatin, increase to daily if tolerated (7) GERD (gastroesophageal reflux disease): Stable. Chronic -Continue Omeprazole F/E/N - NSS at 80mL/hr x 500mL, monitor electrolytes and replete as needed, check I-calcium with AM labs, CC diet as tolerated Ppx - Coumadin, INR=3.2, Omeprazole at home dose Code - DNR per discussion with patient Dispo - Admit to PCU History of Present Illness Chief Complaint: BALDERAS Primary Care Provider: Garrett Rosales MD Patient is a pleasant 83yo female with history of DM, HTN, HLP, AF, episodes of complete heart block s/p pacemaker placement presenting with BALDERAS. Yesterday afternoon the patient noted some dyspnea after climbing one flight of stairs as well as some dizziness. Symptoms persisted and became slightly worse this afternoon when she was walking to her laundry room. BALDERAS is new for her, she is typically fairly active with no exertional symptoms. She denies CP, palpitations, syncope. Denies cough, edema, weight gain. No additional complaints. Upon arrival to the ER she was found to be in atrial fibrillation with a rate of 127bpm. She was administered Metoprolol 5mg IV x 2 doses and NSS x 500mL with some improvement in HR. Patient states she feels well presently. Denies CP, palpitations, dizziness, SOB. ER Course: Metoprolol 5mg IV x 2, NSS Allergies Allergy/AdvReac Type Severity Reaction Status Date / Time Sulfa (Sulfonamide Allergy Intermediate Abdominal Verified 11/30/18 23:44 Antibiotics) cramping adhesive Allergy Mild RED;BROKEN Verified 11/30/18 23:44 SKIN bee venom protein (honey bee) Allergy Mild SWELLING Verified 11/30/18 23:44 ciprofloxacin [From Cipro] Allergy Mild LOWER LEG Verified 11/30/18 23:44 SWELLING latex Allergy Mild RAW SKIN Verified 11/30/18 23:44 primidone AdvReac Intermediate ESSENTIAL Verified 11/30/18 23:44 TREMORS pneumococcal vaccine AdvReac Mild DISCOMFORT Verified 11/30/18 23:44 enoxaparin AdvReac Unknown NO LOVENOX Verified 11/30/18 23:[address] BARRIENTOS 11/17/09 [id number] ADM Home Medications Home Medications Medication Instructions Recorded Confirmed Type Caltrate 600 + D 1 tab PO BID 06/23/18 11/30/18 History Lactobacillus acidophilus 460 mg PO QAM 06/23/18 11/30/18 History [Acidophilus] [place]-3 2 cap PO QAM 06/23/18 11/30/18 History Prolia 60 mg SUBCUT .EVERY 6 MONTHS 06/23/18 11/30/18 History amoxicillin 500 mg PO UD PRN 06/23/18 11/30/18 History atorvastatin 40 mg PO Q2D 06/23/18 11/30/18 History cholecalciferol (vitamin D3) 2,000 unit PO DAILY 06/23/18 11/30/18 History [Vitamin D3] cranberry 500 mg PO QAM 06/23/18 11/30/18 History enalapril maleate 10 mg PO QAM 06/23/18 11/30/18 History furosemide [Lasix] 20 mg PO QAM 06/23/18 11/30/18 History glipizide 2.5 mg PO QPM 06/23/18 11/30/18 History metoprolol succinate 100 mg PO QPM 06/23/18 11/30/18 History multivitamin 1 tab PO DAILY 06/23/18 11/30/18 History omeprazole 20 mg PO Q2D 06/23/18 11/30/18 History warfarin 2.5 mg PO UD 06/23/18 11/30/18 History Past Med/Surg History Medical History Asthmatic bronchitis no inhaler used at this time Atrial fibrillation Diabetes mellitus, type 2 Essential tremor GERD (gastroesophageal reflux disease) Hearing deficit Hyperlipidemia Hypertension Osteoarthritis Pacemaker BRADYCARDIA Perforated bowel Surgical History History of bowel resection WITH COLOSTOMY S/P BOWEL PERFORATION 1992 History of cataract surgery RT/LEFT History of colonoscopy History of colostomy reversal History of esophagogastroduodenoscopy (EGD) History of tooth extraction History of total knee replacement RT/LEFT Uterine fibroid REMOVED Family History Other No significant family history Social History Preferred Language: Greek Feels Safe at Home: Yes Smoking Status: Never smoker Hx Alcohol Use: No Hx Substance Use: No Review of Systems All systems reviewed & are unremarkable except as noted in HPI & below Physical Exam Vital Signs (Past 24 Hours): Last Vital Signs Temp 36.4 C L 11/30/18 21:43 Pulse 105 H 11/30/18 22:55 Resp 20 11/30/18 22:55 BP 113/92 11/30/18 22:55 Pulse Ox 94 11/30/18 22:55 Physical Exam: General: patient resting comfortably, NAD, non-toxic in appearance, AA&O x 4 Skin: warm, dry, intact, no rashes or lesions HEENT: NC/AT, PERRL, EOMI, anicteric sclera, conjunctiva without injection, external ear normal to inspection and nontender, nares patent, moist mucus membranes, dentition intact, no oropharyngeal lesions, neck supple, trachea midline, no LAD, no thyromegaly, no JVD Heart: +S1/S2, irregularly irregular, no m/r/g Lungs: equal air entry bilaterally, no rales/rhonchi/wheezes Abd: +BS, soft, NT/ND, no masses/organomegaly/ascites Ext: warm, 2+ pulses in UE/LE bilaterally, no clubbing/cyanosis or edema Neuro: nonfocal, patient AA&O x 4, speech intact, no facial droop, moving all extremities on command with equal strength 5/5 Results & Data Laboratory Results Lab Results 11/30/18 11/30/18 11/30/18 Range/Units 22:04 22:04 22:04 WBC 11.02 H (4.8-10.8) K/uL RBC 4.59 (4.2-5.4) M/uL Hgb 13.5 (12.0-16.0) g/dL Hct 40.1 (37-47) % MCV 87.4 (80-100) fL MCH 29.4 (25-34) pg MCHC 33.7 (32-36) g/dL RDW Std Deviation 43.2 (36.4-46.3) fL RDW Coeff of Pepe 13.6 (11.5-14.5) % Plt Count 301 (130-400) K/uL MPV 9.9 (7.4-10.4) fL Immature Gran % (Auto) 0.3 % Neut % (Auto) 52.4 % Lymph % (Auto) 37.2 % [place] % (Auto) 7.5 % Eos % (Auto) 2.0 % Baso % (Auto) 0.6 % Immature Gran # (Auto) 0.03 H (0.00-0.02) K/uL Neut # (Auto) 5.77 (1.4-6.5) K/uL Lymph # (Auto) 4.10 H (1.2-3.4) K/uL [place] # (Auto) 0.83 H (0.11-0.59) K/uL Eos # (Auto) 0.22 (0-0.5) K/uL Baso # (Auto) 0.07 (0-0.2) K/uL PT 30.4 H (9.0-12.0) Seconds INR 3.2 H (0.9-1.1) APTT 33.6 H (21.0-31.0) Seconds PTT Ratio 1.2 D-Dimer 320 (0-500) ug/L FEU Sodium 142 (136-145) mmol/L Potassium 4.0 (3.5-5.1) mmol/L Chloride 106 (98-107) mmol/L Carbon Dioxide 29 (21-32) mmol/L Anion Gap 7.0 (3-11) BUN 32 H (7-18) mg/dl Creatinine 1.04 (0.6-1.2) mg/dl Est Cr Clr Drug Dosing 38.7 ml/min Est GFR ( Amer) 57.9 Est GFR (Non-Af Amer) 50.0 BUN/Creatinine Ratio 31.1 H (10-20) Glucose 115 H (70-99) mg/dl Calcium 10.3 H (8.5-10.1) mg/dl Magnesium 1.9 (1.8-2.4) mg/dl Total Bilirubin 0.2 (0.2-1) mg/dl AST 29 (15-37) U/L ALT 34 (12-78) U/L Alkaline Phosphatase 82 (45-117) U/L Troponin I 0.081 H* (0-0.045) ng/ml Total Protein 7.5 (6.4-8.2) gm/dl Albumin 3.5 (3.4-5.0) gm/dl Globulin 4.0 (2.5-4.0) gm/dl Albumin/Globulin Ratio 0.9 (0.9-2) Diagnostic Findings SINGLE VIEW CHEST CLINICAL HISTORY: Dyspnea. FINDINGS: An AP, portable, upright chest radiograph is compared to study dated 01/11/2018. The examination is degraded by portable technique and patient rotation. Hiatal hernia is suspected. A 2-lead cardiac pacemaker is unchanged in position. The heart is enlarged and there is atherosclerotic calcification of the thoracic aorta. The pulmonary vasculature is noncongested. Chronic interstitial thickening is similar to previous. No airspace consolidation or large pleural effusion is seen. No pneumothorax is identified. The skeletal structures are osteopenic. The bony thorax is grossly intact. IMPRESSION: 1. Cardiomegaly and cardiac pacemaker. There is no radiographic evidence of congestive failure. 2. No airspace consolidation or large pleural effusion is identified. Electronically signed by: Hermilo Griffin M.D. 11/30/2018 10:41 PM Dictated: 11/30/182239 Transcribed: 11/30/182239 ECG Additional Comments: Atrial fibrillation at 127bpm, normal axis, QRS=72, QTc=4 79, no ischemia Code Status & VTE Plan Code Status dnr (1) Type 2 diabetes mellitus Diabetes mellitus custodial insulin use: without custodial use Diabetes mellitus complication status: without complication Qualified Code(s): E11.9 - Type 2 diabetes mellitus without complications (2) Hypertension Hypertension type: essential hypertension Qualified Code(s): I10 - Essential (primary) hypertension (3) Hyperlipidemia Hyperlipidemia type: unspecified Qualified Code(s): E78.5 - Hyperlipidemia, unspecified (4) GERD (gastroesophageal reflux disease) Esophagitis presence: without esophagitis Qualified Code(s): K21.9 - Gastro- esophageal reflux disease without esophagitis
[2018-12-01] MEDS ORDERED: ACETAMINOPHEN 325 MG TAB PO PRN (01:25)
[2018-12-01] MEDS ORDERED: DOCUSATE SODIUM 100 MG CAP PO PRN (01:25)
[2018-12-01] MEDS ORDERED: GLUCOSE 40% GEL 15 GM TUBE PO PRN (01:25)
[2018-12-01] MEDS ORDERED: GLUCOSE 10 TABS/TUBE PO PRN (01:25)
[2018-12-01] MEDS ORDERED: DEXTROSE 50% 50 ML SYRINGE IV PRN (01:25)
[2018-12-01] MEDS ORDERED: GLUCAGON FOR INJ 1 MG VIAL SQ PRN (01:25)
[2018-12-01] MEDS ORDERED: CARBOHYDRATES FOR HYPOGLYCEMIA PO PRN (01:25)
[2018-12-01 01:44] LABS: Phosphorus 4.1 mg/dl (2.5-4.9)
[2018-12-01] MEDS: SODIUM CHLORIDE 0.9% 1000ML 1,000 ML IV SCH ×2 (01:48→14:59)
[2018-12-01 06:45] LABS: Basophils # (auto) 0.05 K/uL (0-0.2); Basophils % (auto) 0.5 %; Eosinophils # (auto) 0.28 K/uL (0-0.5); Eosinophils % (auto) 2.9 %; Hematocrit (blood only) 37.9 % (37-47); Hemoglobin 12.5 g/dL (12.0-16.0); Immature Granulocytes # (auto) 0.02 K/uL (0.00-0.02); Immature Granulocytes % (auto) 0.2 %; Lymphocytes # (auto) 2.93 K/uL (1.2-3.4); Lymphocytes % (auto) 30.4 %; Mean Corpuscular Volume 88.1 fL (80-100); Mean Platelet Volume 9.9 fL (7.4-10.4); Monocytes # (auto) 0.85 K/uL (0.11-0.59); Monocytes % (auto) 8.8 %; Neutrophils # (auto) 5.51 K/uL (1.4-6.5); Neutrophils % (auto) 57.2 %; Platelet Count 238 K/uL (130-400); RDW Coefficient of Variation 13.7 % (11.5-14.5); RDW Standard Deviation 44.4 fL (36.4-46.3); White Blood Count 9.64 K/uL (4.8-10.8)
[2018-12-01 06:54] LABS: INR 3.4 (0.9-1.1); Prothrombin Time 31.8 Seconds (9.0-12.0)
[2018-12-01 07:09] LABS: Calcium 9.1 mg/dl (8.5-10.1); Creatinine Clr Calc Pharmacy 44.4 ml/min; Est GFR (African American) 68.5; Est GFR (Non-African American) 59.1; Potassium 4.2 mmol/L (3.5-5.1)
[2018-12-01 07:16] LABS: Troponin I 0.098 ng/ml (0-0.045)
[2018-12-01] MEDS: INSULIN ASPART 100 UNITS/ML 3 ML PEN SC SCH ×4 (08:45→20:59)
[2018-12-01] MEDS: ATORVASTATIN 40 MG TAB PO SCH (08:46)
[2018-12-01] MEDS: FUROSEMIDE 20 MG TAB PO SCH (08:46)
[2018-12-01] MEDS: CALCIUM 600MG + VIT D 400 IU TAB PO SCH ×2 (08:47→20:59)
[2018-12-01] MEDS: CHOLECALCIFEROL 1,000 UNITS TAB PO SCH (08:47)
[2018-12-01] MEDS: ENALAPRIL MALEATE 10 MG TAB PO SCH (08:49)
[2018-12-01] MEDS ORDERED: PANTOprazole 40 MG TAB PO SCH (09:00)
--- NOTE | 2018-12-01 13:11 | Cardiology Consultation ---
Date of Consultation December 01, 2018 Assessment & Plan (1) Atrial fibrillation with rapid ventricular response: 2. History of complete heart block status post dual-chamber pacemaker 3. Hypertension 4. Recently diagnosed endometrial cancer post hysterectomy 08/2018 5. Type 2 diabetes on oral therapy Patient here with symptomatically for fibrillation with RVR. No clear precipitants. Troponin minimally elevated and low suspicion for ACS event. Echocardiogram shows preserved LV function with no regional wall motion abnormalities. We discussed options for management going forward including possible cardioversion as has been therapeutic on Coumadin for months. At this point patient would prefer attempts at further medical management and rate control. Patients heart rate remains above goal after 2 doses of IV metoprolol. Going forward: Did not receive her p.o. Toprol-XL yesterday and would give home Toprol-XL 100 mg now. Start on IV diltiazem this afternoontarget for heart rate less than 100s Plan to convert IV diltiazem to p.o. dose tomorrow Continue anticoagulation with Coumadin Hold home diuretics If heart rates better controlled tomorrow could potentially be discharged with close cardiology follow-up. If unable to control heart rates as an outpatient cardioversion remains an option. Thank you for allowing us to participate in the care of this patient. Please contact with any questions. History of Present Illness Attending Physician: Skinny Aragon History of Present Illness Mrs. Reyes is a very pleasant 84-year-old woman known to me from the outpatient setting with a history of complete heart block status post [employer] dual-chamber pacemaker, paroxysmal atrial fibrillation on anticoagulation with Coumadin, hypertension, dyslipidemia, type 2 diabetes recently diagnosed endometrial cancer post resection admitted with increased fatigue in the setting of AF +RVR. Patient was in her usual state of health until the day prior to admission when woke up feeling generally unwell, tired. Able to go to judaism but then had to spend the rest of the day in bed. Fatigue associated with intermittent dizziness. Denied shortness of breath or chest pain. Denies any new lower extremity edema. Denies palpitations although states it felt just like when her pacemaker was not working previously. Has not had symptomatic atrial fibrillation before. Prior A. fib diagnosed on device interrogation years ago. Upon arrival to the ED was noted to be in atrial fibrillation with heart rates up in the 120 to 130s. Troponin minimally elevated at 0.081, 0.098. Given IV Lopressor x2 and IV fluids. Has remained in atrial fibrillation on telemetry with heart rates in the 110s-120s. Astigmatic currently but has been largely bedbound since admission. Allergies Allergy/AdvReac Type Severity Reaction Status Date / Time Sulfa (Sulfonamide Allergy Intermediate Abdominal Verified 11/30/18 23:44 Antibiotics) cramping adhesive Allergy Mild RED;BROKEN Verified 11/30/18 23:44 SKIN bee venom protein (honey bee) Allergy Mild SWELLING Verified 11/30/18 23:44 ciprofloxacin [From Cipro] Allergy Mild LOWER LEG Verified 11/30/18 23:44 SWELLING latex Allergy Mild RAW SKIN Verified 11/30/18 23:44 primidone AdvReac Intermediate ESSENTIAL Verified 11/30/18 23:44 TREMORS pneumococcal vaccine AdvReac Mild DISCOMFORT Verified 11/30/18 23:44 enoxaparin AdvReac Unknown NO LOVENOX Verified 11/30/18 23:[address] BARRIENTOS 11/17/09 [id number] ADM Home Medications Home Medications Medication Instructions Recorded Confirmed Type Caltrate 600 + D 1 tab PO BID 06/23/18 11/30/18 History Lactobacillus acidophilus 460 mg PO QAM 06/23/18 11/30/18 History [Acidophilus] [place]-3 2 cap PO QAM 06/23/18 11/30/18 History Prolia 60 mg SUBCUT .EVERY 6 MONTHS 06/23/18 11/30/18 History amoxicillin 500 mg PO UD PRN 06/23/18 11/30/18 History atorvastatin 40 mg PO Q2D 06/23/18 11/30/18 History cholecalciferol (vitamin D3) 2,000 unit PO DAILY 06/23/18 11/30/18 History [Vitamin D3] cranberry 500 mg PO QAM 06/23/18 11/30/18 History enalapril maleate 10 mg PO QAM 06/23/18 11/30/18 History furosemide [Lasix] 20 mg PO QAM 06/23/18 11/30/18 History glipizide 2.5 mg PO QPM 06/23/18 11/30/18 History metoprolol succinate 100 mg PO QPM 06/23/18 11/30/18 History multivitamin 1 tab PO DAILY 06/23/18 11/30/18 History omeprazole 20 mg PO Q2D 06/23/18 11/30/18 History warfarin 2.5 mg PO UD 06/23/18 11/30/18 History Patient History Medical History Asthmatic bronchitis no inhaler used at this time Atrial fibrillation Diabetes mellitus, type 2 Essential tremor GERD (gastroesophageal reflux disease) Hearing deficit Hyperlipidemia Hypertension Osteoarthritis Pacemaker BRADYCARDIA Perforated bowel Surgical History History of bowel resection WITH COLOSTOMY S/P BOWEL PERFORATION 1992 History of cataract surgery RT/LEFT History of colonoscopy History of colostomy reversal History of esophagogastroduodenoscopy (EGD) History of tooth extraction History of total knee replacement RT/LEFT Uterine fibroid REMOVED Social History Communication Ability: Effective Beliefs That Will Affect Care: None Current Living Situation: Alone Other Information That Helps Us Care for You: No Feels Safe at Home: Yes Safety Concerns: Feels Safe At This Time Smoking Status: Never smoker Hx Alcohol Use: No Hx Substance Use: No Review of Systems 10 point review of systems was completed and was otherwise negative unless stated in HPI Physical Exam Vital Signs (Past 24 Hours): Last Vital Signs Temp 36.5 C 12/01/18 12:19 Pulse 127 H 12/01/18 12:19 Resp 20 12/01/18 12:19 BP 136/82 12/01/18 12:19 Pulse Ox 95 12/01/18 12:19 Physical Exam: General: Comfortable, no acute distress Eyes: Sclerae anicteric, extraocular movements intact HENT: Oropharynx clear mucous membranes moist Neck: Normal carotid upstrokes, no bruits. No JVD. Lungs: Clear to auscultation bilaterally, no rhonchi or wheezes Cardiac: Irregularly irregular, tachycardic, no murmurs Abdomen: Soft, nontender, nondistended, positive bowel sounds. Surgical incisions well-healed. Extremities: Well perfused, no peripheral edema Skin: No rashes or lesions. Neuro: Nonfocal Psych: Alert orient x3, normal affect and mood
[2018-12-01] MEDS ORDERED: METOPROLOL SUCC 50MG EXT REL TAB PO STA (16:05)
[2018-12-01] MEDS ORDERED: dilTIAZem HCl 125 MG in DEXTROSE 5% 100 ML IV SCH (16:15)
[2018-12-01] MEDS ORDERED: METOPROLOL SUCC 50MG EXT REL TAB PO SCH (21:00)
[2018-12-02] MEDS: SODIUM CHLORIDE 0.9% 1000ML 1,000 ML IV SCH ×2 (03:29→17:08)
[2018-12-02] MEDS: INSULIN ASPART 100 UNITS/ML 3 ML PEN SC SCH ×3 (08:27→17:27)
[2018-12-02] MEDS: CALCIUM 600MG + VIT D 400 IU TAB PO SCH (08:30)
[2018-12-02] MEDS: ATORVASTATIN 40 MG TAB PO SCH (08:30)
[2018-12-02] MEDS: FUROSEMIDE 20 MG TAB PO SCH (08:30)
[2018-12-02] MEDS: CHOLECALCIFEROL 1,000 UNITS TAB PO SCH (08:31)
[2018-12-02] MEDS: ENALAPRIL MALEATE 10 MG TAB PO SCH (08:31)
[2018-12-02] MEDS ORDERED: dilTIAZem ER 180 MG CAPCR PO SCH (10:15)
--- NOTE | 2018-12-02 12:27 | Cardiology Progress Note ---
Date of Service December 02, 2018 Assessment & Plan (1) Atrial fibrillation with rapid ventricular response: 2. History of complete heart block status post dual-chamber pacemaker 3. Hypertension 4. Recently diagnosed endometrial cancer post hysterectomy 08/2018 5. Type 2 diabetes on oral therapy Feeling well today. Largely asymptomatic from a cardiac standpoint Patient remains in atrial fibrillation but better rate controlled on diltiazem. Agree with transition to p.o. diltiazem 180 daily, okay to stop IV Cardizem. Continue home Toprol-XL Continue anticoagulation with Coumadin No other changes to home cardiac regimen. Can stop IV fluids. Up walking halls later today. If feeling well, okay with discharge later today and can follow-up with cardiology next week. Subjective Feeling well. No palpitations. No chest pain. Has not walked the halls yet but around her room denies significant shortness of breath. Telemetry reviewremains in atrial fibrillation, better rate controlled with heart rates less than 100 Review of Systems 10 point review of systems was completed and was otherwise negative unless stated in HPI Physical Exam Vital Signs (Past 24 Hours): Last Vital Signs Temp 36.4 C L 12/02/18 08:00 Pulse 87 12/02/18 11:20 Resp 18 12/02/18 11:20 BP 115/75 12/02/18 11:20 Pulse Ox 97 12/02/18 11:20 Physical Exam: General: Comfortable, no acute distress Eyes: Sclerae anicteric, extraocular movements intact Lungs: Clear to auscultation bilaterally, no rhonchi or wheezes Cardiac: Irregularly irregular, no murmurs Vascular: 2+ radial, DP and PT pulses. No varicosities. Abdomen: Soft, nontender, nondistended, positive bowel sounds. Extremities: Well perfused, no peripheral edema Skin: No rashes or lesions. Neuro: Nonfocal Psych: Alert orient x3, normal affect and mood
[2018-12-02] MEDS ORDERED: METOPROLOL SUCC 50MG EXT REL TAB PO SCH (21:00)
--- NOTE | 2018-12-08 21:32 | Discharge Summary ---
Date of Service December 02, 2018 Admission HPI Per Admitting Provider Patient is a pleasant 83yo female with history of DM, HTN, HLP, AF, episodes of complete heart block s/p pacemaker placement presenting with BALDERAS. Yesterday afternoon the patient noted some dyspnea after climbing one flight of stairs as well as some dizziness. Symptoms persisted and became slightly worse this afternoon when she was walking to her laundry room. BALDERAS is new for her, she is typically fairly active with no exertional symptoms. She denies CP, palpitations, syncope. Denies cough, edema, weight gain. No additional complaints. Upon arrival to the ER she was found to be in atrial fibrillation with a rate of 127bpm. She was administered Metoprolol 5mg IV x 2 doses and NSS x 500mL with some improvement in HR. Patient states she feels well presently. Denies CP, palpitations, dizziness, SOB. ER Course: Metoprolol 5mg IV x 2, NSS Principal Diagnosis Atrial Fibrillation with rapid ventricular response rate Discharge Data Allergies Allergy/AdvReac Type Severity Reaction Status Date / Time Sulfa (Sulfonamide Allergy Intermediate Abdominal Verified 11/30/18 23:44 Antibiotics) cramping adhesive Allergy Mild RED;BROKEN Verified 11/30/18 23:44 SKIN bee venom protein (honey bee) Allergy Mild SWELLING Verified 11/30/18 23:44 ciprofloxacin [From Cipro] Allergy Mild LOWER LEG Verified 11/30/18 23:44 SWELLING latex Allergy Mild RAW SKIN Verified 11/30/18 23:44 primidone AdvReac Intermediate ESSENTIAL Verified 11/30/18 23:44 TREMORS pneumococcal vaccine AdvReac Mild DISCOMFORT Verified 11/30/18 23:44 enoxaparin AdvReac Unknown NO LOVENOX Verified 11/30/18 23:[address] BARRIENTOS 11/17/09 [id number] ADM Consultations 11/30/18 23:04 ED Decision to Admit Stat 12/01/18 01:25 Consult Cardiology Routine Hospital Course (1) BALDERAS (dyspnea on exertion): Symptoms have been ongoing for >24 hours. Patient denies CP, palpitations, edema, orthopnea. May be related to RVR, less likely ACS/ischemic event. Patient with no underlying lung disease. No evidence of CHF on exam or imaging -Admit to PCU -Continuous cardiac monitoring -Pacer interrogation -troponin q 8 hours x 3 sets peaked at 0.09(demand ischemia) -2D echo: hyperdynamic left ventricular function severe left atrial diltation -Cardiology consultation - appreciate assistance with this case Transition to p.o. diltiazem 180 daily, okay to stop IV Cardizem. Continue home Toprol-XL Continue anticoagulation with Coumadin No other changes to home cardiac regimen. Can stop IV fluids. (2) Atrial fibrillation with rapid ventricular response: Patient with history of PAF. She has a dual chamber pacemaker in place for history of complete heart block. Follows with Dr. Moreira in device clinic, last seen on 28 September 2018. At that time she was pacing 14% of the time. No AF noted on interrogation. -Continue Metoprolol 100mg po qPM, consider increasing to BID -Conitnue to monitor -Echo, troponin as above -will continue coumadin as outpatient (3) Elevated troponin: Patient with no CP, no EKG evidence of ischemia. ?demand ischemia, supply/demand mismatch rather than ACS -Cardiology consultation -Continue Metoprolol -Increase statin to daily (4) Type 2 diabetes mellitus: Well controlled with minimal Glipizide -Hold Glipizide while inpatient -ISS -CC diet as tolerated (5) Hypertension: Blood pressure well controlled. -Continue Metoprolol -Continue Enalapril -Continue Lasix -Continue to monitor (6) Hyperlipidemia: Chronic -Continue Atorvastatin, increase to daily if tolerated (7) GERD (gastroesophageal reflux disease): Stable. Chronic -Continue Omeprazole F/E/N - NSS at 80mL/hr x 500mL, monitor electrolytes and replete as needed, check I-calcium with AM labs, CC diet as tolerated Ppx - Coumadin, INR=3.2 on admission, Omeprazole at home dose Code - DNR per discussion with patient Total Time Total Time Spent Total Time Spent (In Minutes): 35 Total Time Includes: Examination of the Patient, Discharge Planning and Medication Reconciliation Discharge Plan Discharge Items Patient Disposition: Home - Self-Care Reason For Visit: BALDERAS, AF W/ RVR Discharge Diagnosis: Atrial fibrillation with RVR Discharge Goals: Decrease discomfort Activity: Resume your previous activity Non-emergency contact: Primary Care Provider Call non-emergency contact if: you have any medication questions Follow-up/Referrals: Pro,Garrett Min MD [Primary Care Provider] - Diet: Carb Consistent or DM2 Addtl Provider Instructions: You were seen for elevated heart rate. We added a new medicine. This will help control your heart rate. Please recheck INR in 1-2 days. Prescriptions: New diltiazem HCl [Tiazac] 180 mg Capsule,Extended Release 24 Hr 180 mg PO QAM Qty: 30 RF: 0 Continued multivitamin Tablet 1 tab PO DAILY RF: 0 amoxicillin 500 mg Capsule 500 mg PO UD PRN (Reason: takes before dental procedures) RF: 0 atorvastatin 40 mg Tablet 40 mg PO Q2D RF: 0 enalapril maleate 10 mg Tablet 10 mg PO QAM RF: 0 warfarin 2.5 mg Tablet 2.5 mg PO UD RF: 0 glipizide 2.5 mg Tablet Extended Release 24hr 2.5 mg PO QPM RF: 0 furosemide [Lasix] 20 mg Tablet 20 mg PO QAM RF: 0 Lactobacillus acidophilus [Acidophilus] Capsule 460 mg PO QAM RF: 0 cranberry 500 mg Capsule 500 mg PO QAM RF: 0 omeprazole 20 mg Tablet,Delayed Release (Dr/Ec) 20 mg PO Q2D RF: 0 cholecalciferol (vitamin D3) [Vitamin D3] 2,000 unit Tablet 2,000 unit PO DAILY RF: 0 Prolia 60 mg/mL Syringe 60 mg subcut .EVERY 6 MONTHS RF: 0 Caltrate 600 + D 600 mg (1,500 mg)-800 unit Tablet,Chewable 1 tab PO BID RF: 0 [place]-3 350 mg-235 mg- 90 mg-597 mg Capsule,Delayed Release(Dr/Ec) 2 cap PO QAM RF: 0 metoprolol succinate 100 mg Capsule,Sprinkle,Er 24hr 100 mg PO QPM RF: 0 Stand-Alone Forms: [facility] Discharge Orders: Discharge Order (Routine); Ordered 12/02/18 Ordered By: Skinny Aragon Admission Data Admit Date/Time: 12/01/18 00:02 Attending Provider: Skinny Aragon Admit Provider: Mary Ellen Duran Primary Care Provider: Garrett Rosales Other Providers: Zeferino Rodriguez Service: Telemetry Other Interventions: Discharge Summary Assessment (RN) Last Done: 12/02/18 17:20 DC Date/Time DO NOT enter until pt leaves facility: 12/02/18 19:47
== END 2018-12-02 19:47 | disposition home or self-care (01) | DRG 309 ==
LOC: ED 21:39 → 2S 12-01 00:02 → SUATTDRO 12-01 00:02 → 2S 12-01 00:24
DX: Z66 Do not resuscitate; Z91.040 Latex allergy status; E78.5 Hyperlipidemia, unspecified; K21.9 Gastro-esophageal reflux disease without esophagitis; Z88.1 Allergy status to other antibiotic agents; Z88.7 Allergy status to serum and vaccine; Z79.01 Long term (current) use of anticoagulants; Z79.899 Other long term (current) drug therapy; E11.9 Type 2 diabetes mellitus without complications; Z91.030 Bee allergy status; I48.91 Unspecified atrial fibrillation; Z88.2 Allergy status to sulfonamides; Z95.0 Presence of cardiac pacemaker; I10 Essential (primary) hypertension; Z88.8 Allergy status to other drugs, medicaments and biological substances; Z79.83 Long term (current) use of bisphosphonates; I24.8 Other forms of acute ischemic heart disease; Z91.048 Other nonmedicinal substance allergy status

== ENCOUNTER 2022-08-07 11:07 | Inpatient (IN) ==
--- NOTE | 2022-08-07 11:56 | Emergency Department Note ---
History of Present Illness General Chief complaint: Illness Stated complaint: HEAD COLD, SOB, TROUBLE BREATHING Time Seen by Provider: 08/07/22 11:37 Source: patient Mode of arrival: ambulatory Limitations: no limitations History of Present Illness This patient is a 86-year-old female who comes in after feeling ill for about 6 days. She she she had she had a fever starting last . She has been coughing since the weekend, she has been coughing whitish phlegm. She feels short of breath she has had some audible wheezing which she does not normally have. She has no history of lung disease she is never used inhalers and no hist ory of reactive airway disease or COPD or smoking. She does get bronchitis and felt like this was starting to look like that. She called Dr. Rosales's office 2 days ago and they told her to come to the ER and she waited till today because she thought she was getting better. No definite fever. Her appetite has been okay. She has had a little bit of nausea at times no emesis she has had occasional diarrhea without blood or melena no urinary symptoms. No fall or trauma. She does have a history of CHF and they had decreased her diuretic to every other day she was doing well so she decreased it to every third day on her own. Home Medications Medication Instructions Recorded Confirmed Type calcium carbonate 600 mg-vitamin 1 tab PO BID 06/23/18 08/07/22 History D3 20 mcg (800 unit) chewable tablet (Caltrate 600 plus D) cranberry 500 mg capsule 500 mg PO QAM 06/23/18 08/07/22 History multivitamin 1 tab PO DAILY 06/23/18 08/07/22 History denosumab 60 mg/mL subcutaneous 60 mg subcut Q6MO 03/30/19 08/07/22 History syringe (Prolia) cholecalciferol (vitamin D3) 50 2,000 unit PO DAILY 05/10/19 08/07/22 History mcg (2,000 unit) tablet (Vitamin D3) omega-3 fatty acids 1,000 mg 2,000 mg PO QAM 05/10/19 08/07/22 History capsule Lactobacillus acidophilus 1 cap PO QAM 07/31/21 08/07/22 History (Acidophilus capsule) atorvastatin 40 mg tablet 40 mg PO Q2D #45 tabs 11/09/21 08/07/22 Rx OneTouch Delica Lancets 30 gauge #200 ea 11/22/21 07/31/22 Rx (lancets) metoprolol succinate 100 mg 100 mg PO DAILY #90 tabs 05/03/22 08/07/22 Rx tablet,extended release 24 hr (Toprol XL) blood sugar diagnostic (OneTouch #200 ea 05/09/22 07/31/22 Rx Ultra Test strips) glipizide 2.5 mg tablet, extended 2.5 mg PO QPM #90 tabs 05/09/22 08/07/22 Rx release 24 hr sertraline 25 mg tablet 25 mg PO DAILY #30 tabs 05/23/22 08/07/22 Rx furosemide 20 mg tablet (Lasix) 20 mg PO Q OTHER DAY #45 tabs 05/30/22 08/07/22 Rx omeprazole 20 mg tablet,delayed 20 mg PO Q2D #90 tabs 05/30/22 08/07/22 Rx release apixaban 5 mg tablet (Eliquis) 5 mg PO BID #180 tabs 06/04/22 08/07/22 Rx diltiazem HCl 180 mg capsule,24 180 mg PO QAM #90 caps 06/27/22 08/07/22 Rx hr,extended release (Tiazac) amoxicillin 500 mg capsule 2,000 mg PO DIRECTED PRN PRIOR 08/07/22 08/07/22 History TO DENTAL PROCEDURES enalapril maleate 10 mg tablet 10 mg PO QAM 08/07/22 08/07/22 History Allergies Allergy/AdvReac Type Severity Reaction Status Date / Time Sulfa (Sulfonamide Allergy Intermediate Abdominal Verified 08/07/22 15:19 Antibiotics) cramping bee venom protein (honey bee) Allergy Mild SWELLING Verified 08/07/22 15:19 ciprofloxacin [From Cipro] Allergy Mild LOWER LEG Verified 08/07/22 15:19 SWELLING latex Allergy Mild RAW SKIN Verified 08/07/22 15:19 sulfamethoxazole Allergy Unknown CAN'T Verified 08/07/22 15:19 [From Bactrim] REMEMBER trimethoprim [From Bactrim] Allergy Unknown CAN'T Verified 08/07/22 15:19 REMEMBER primidone AdvReac Intermediate ESSENTIAL Verified 08/07/22 15:19 TREMORS adhesive AdvReac Mild RED;BROKEN Verified 08/07/22 15:19 SKIN alendronate sodium AdvReac Mild stomach Verified 08/07/22 15:19 [From Fosamax] pain buspirone AdvReac Mild Dizziness Verified 08/07/22 15:19 pneumococcal vaccine AdvReac Mild DISCOMFORT Verified 08/07/22 15:19 enoxaparin AdvReac Unknown NO LOVENOX Verified 08/07/22 15:[address] BARRIENTOS 11/17/09 [id number] ADM Past Med/Surg History Medical History Asthmatic bronchitis no inhaler used at this time Atrial fibrillation Bronchitis Congestion of nasal sinus Congestion of nasal sinus Cough Diabetes mellitus, type 2 Essential tremor Excessive cerumen in both ear canals GERD (gastroesophageal reflux disease) Gross hematuria Hearing deficit Hematuria Hyperlipidemia Hypertension Osteoarthritis Pacemaker BRADYCARDIA Pacemaker Perforated bowel Surgical History H/O: hysterectomy History of bowel resection WITH COLOSTOMY S/P BOWEL PERFORATION 1992 History of cataract surgery RT/LEFT History of colonoscopy History of colostomy reversal History of esophagogastroduodenoscopy (EGD) History of permanent cardiac pacemaker placement also battery replacement in 2009 and 2019 History of tooth extraction History of total knee replacement RT/LEFT Uterine fibroid REMOVED Family History Father Myocardial infarction Hypertension Heart disease Grandfather (Paternal) Myocardial infarction Uncle Myocardial infarction Mother Heart disease Hearing loss Hypertension Allergies Brother Asthma Other No family history of adverse response to anesthesia No family history of bleeding disorder No significant family history Denies family history of Colon cancer Ovarian cancer Prostate cancer Breast cancer Social History Smoking Status: Never smoker Second Hand Exposure: No; Hx Alcohol Use: No Hx Substance Use: No Preferred Language: [place] Communication Ability: Effective Visual Impairment: Limited Hearing Ability: Use of Hearing Aid Asic Engineer Required: No Beliefs That Will Affect Care: None marital status: / Current Living Situation: Alone current occupational status: retired Feels Safe at Home: Yes Childhood Exposure to Second-Hand Smoke: Yes Dental Care, Regularly: Yes Physical Activity Frequency: Daily Seatbelt Use: always Sunscreen Use: No Assistive Devices: Glasses, Hearing Aid - Left and Hearing Aid - Right Review of Systems A total of 10 systems reviewed and were otherwise negative Physical Exam Vital Signs Vital Signs - 24 hr 08/07/22 11:09 08/07/22 12:16 08/07/22 12:20 Temperature 36.1 C L Temperature Source Temporal Artery Scan Pulse Rate 81 71 Pulse Rate [Finger] 70 Pulse Rate from SpO2 Sensor Pulse Rhythm Regular Pulse Strength Normal Respiratory Rate 28 H 28 H Respiratory Effort / Characteristics Labored Labored Short of Breath Respiratory Pattern Tachypnea Blood Pressure 178/79 H Blood Pressure [Left Arm] 170/85 H Blood Pressure Mean 112 Blood Pressure Mean [Left Arm] 113 Blood Pressure Position Sitting Blood Pressure Position [Left Arm] Lying Pulse Oximetry 95 91 92 Oxygen Delivery Method Room Air Room Air Room Air Oxygen Flow Rate Sepsis Recent Fever Within 48 Hours No Sepsis New/Unexplained Change in Mental Status No Sepsis Action Taken by Nursing No Action Required 08/07/22 11:30 08/07/22 12:16 08/07/22 12:30 Temperature Temperature Source Pulse Rate 70 71 Pulse Rate [Finger] Pulse Rate from SpO2 Sensor Pulse Rhythm Pulse Strength Respiratory Rate 23 24 24 Respiratory Effort / Characteristics Respiratory Pattern Blood Pressure 158/75 H 170/85 H 155/89 H Blood Pressure [Left Arm] Blood Pressure Mean 102 113 111 Blood Pressure Mean [Left Arm] Blood Pressure Position Blood Pressure Position [Left Arm] Pulse Oximetry 94 92 92 Oxygen Delivery Method Nasal Cannula Nasal Cannula Nasal Cannula Oxygen Flow Rate 2 2 2 Sepsis Recent Fever Within 48 Hours Sepsis New/Unexplained Change in Mental Status Sepsis Action Taken by Nursing 08/07/22 13:30 08/07/22 14:00 08/07/22 14:30 Temperature Temperature Source Pulse Rate 71 71 Pulse Rate [Finger] Pulse Rate from SpO2 Sensor 71 Pulse Rhythm Pulse Strength Respiratory Rate 26 H 24 24 Respiratory Effort / Characteristics Respiratory Pattern Blood Pressure 131/81 135/67 144/78 H Blood Pressure [Left Arm] Blood Pressure Mean 97 89 100 Blood Pressure Mean [Left Arm] Blood Pressure Position Blood Pressure Position [Left Arm] Pulse Oximetry 95 96 95 Oxygen Delivery Method Nasal Cannula Nasal Cannula Nasal Cannula Oxygen Flow Rate 2 2 2 Sepsis Recent Fever Within 48 Hours Sepsis New/Unexplained Change in Mental Status Sepsis Action Taken by Nursing General: Well developed well nourished older female who has mild increased work of breathing with some audible upper airway wheezing but in no acute distress, breathing comfortably on room air. Normal speech, speaking full sentences. HEENT: Normal cephalic atraumatic. Pupils are equal round and reactive to light. Extraocular movements are intact. Oropharynx is pink with moist mucous membranes. No swelling of the mouth lips or tongue. Neck: Supple with a midline trachea. No meningeal signs or stiffness, no JVD or bruits. No Stridor. Chest: Clear to auscultation bilaterally. No wheezes or rhonchi. No increased work of breathing. Heart: Regular rate and rhythm without murmurs or gallops. Abdomen: Soft nontender, nondistended without rebound guarding or rigidity. Extremities: No cyanosis clubbing. Trace to 1+ edema. No calf tenderness or assymetry Spine/Back. Non tender to palpation. No CVA tenderness Skin: Good turgor without rashes. Neurologic exam: Cranial nerves two through 12 are intact. Motor and sensation are intact and symmetrical throughout. Course Administered Medications Guaifenesin (Guaifenesin Sugar Free 200 Mg/10 Ml Udc) 200 mg PO Q6H NEISHA Stop: 09/06/22 15:44 Last Admin: 08/07/22 15:53 Dose: 200 mg Documented By: SHMUEL Insulin Aspart (Insulin Aspart Per Unit) 0 units SC ACHS NEISHA Stop: 09/06/22 16:29 Last Admin: 08/07/22 16:49 Dose: Not Given Documented By: KATIE Discontinued Medications Furosemide (Furosemide Inj 20 Mg/2 Ml Vial) 20 mg IV ONE ONE Stop: 08/07/22 14:04 Last Admin: 08/07/22 14:25 Dose: 20 mg Documented By: SHMUEL Medical Decision Making Differential Diagnosis Pneumonia, bronchitis, sepsis, influenza, COVID, CHF, acute coronary syndrome, pulmonary disease, electrolyte or metabolic abnormality Medical Records Attestation: I reviewed the patient's medical records. Home Medications Current Medication List: was personally reviewed by me Laboratory Data Attestation: I reviewed the patient's lab results. Result diagrams: 08/07/22 12:13 08/07/22 12: Lab Results 08/07/22 08/07/22 08/07/22 Range/Units 12:13 12:13 12:13 WBC 8.55 (4.8-10.8) K/ul RBC 5.00 (3.93-5.22) M/uL Hgb 14.8 (12.0-16.0) g/dl Hct 44.1 (34.1-44.9) % MCV 88.2 (80.0-100.0) fL MCH 29.6 (25.0-34.0) pg MCHC 33.6 (32.0-36.0) g/dL RDW Std Deviation 42.0 (36.4-46.3) fL RDW Coeff of Pepe 13.0 (11.5-14.5) % Plt Count 248 (130-400) K/uL MPV 9.4 (9.4-12.3) fL Immature Gran % (Auto) 0.5 % Neut % (Auto) 74.1 % Lymph % (Auto) 14.3 % [place] % (Auto) 9.2 % Eos % (Auto) 1.3 % Baso % (Auto) 0.6 % Neut # (Auto) 6.34 (1.4-6.5) K/uL Lymph # (Auto) 1.22 (1.2-3.4) K/uL [place] # (Auto) 0.79 (0.24-0.82) K/uL Eos # (Auto) 0.11 (0-0.50) K/uL Baso # (Auto) 0.05 (0-0.2) K/uL Immature Gran # (Auto) 0.04 H (0.00-0.02) K/uL Toxic Vacuolation 1+ Sodium 136 (136-145) mmol/L Potassium 3.8 (3.5-5.1) mmol/L Chloride 99 (98-107) mmol/L Carbon Dioxide 28 (21-32) mmol/L Anion Gap 9 (3-11) BUN 13 (6-23) mg/dl Creatinine 0.65 (0.6-1.2) mg/dl Est Cr Clr Drug Dosing 56.2 ml/min Est GFR ( Amer) 93.2 ml/min Est GFR (Non-Af Amer) 80.4 ml/min BUN/Creatinine Ratio 20.0 (10-20) Glucose 177 H (70-99(Fasting)) mg/dl Lactate 1.2 (0.4-2.0) mmol/L Calcium 9.3 (8.5-10.1) mg/dl Magnesium 1.7 (1.7-2.4) mg/dl Total Bilirubin 0.6 (0.2-1.0) mg/dl Direct Bilirubin 0.0 (0-0.2) mg/dl AST 30 (13-39) U/L ALT 29 (7-52) U/L Alkaline Phosphatase 96 (34-104) U/L Troponin I High Sens 10.8 (0-14) pg/ml B-Natriuretic Peptide (0-100) pg/ml Total Protein 7.5 (6.0-8.3) gm/dl Albumin 4.2 (3.4-5.0) gm/dl Procalcitonin (0-0.5) ng/ml Urine Color Urine Appearance (Clear) Urine pH (4.5-7.5) Ur Specific [place] (1.000-1.030) Urine Protein (Negative) Urine Glucose (UA) (Negative) Urine Ketones (Negative) Urine Blood (Negative) Urine Nitrite (Negative) Urine Bilirubin (Negative) Urine Urobilinogen (Negative) Ur Leukocyte Esterase (Negative) Urine WBC (Auto) (0-5) /hpf Urine RBC (Auto) (0-4) /hpf U Hyaline Cast (Auto) (0-5) /lpf U Epithel Cells (Auto) (0-5) /lpf Urine Bacteria (Auto) (Negative) Urine Crystals (None Prsent) Other Crystals (None Prsent) SARS-CoV-2 (PCR) (Negative) Influ A Molecular Assay (Negative) Influ B Molecular Assay (Negative) 08/07/22 08/07/22 08/07/22 Range/Units 12:13 12:13 12:14 WBC (4.8-10.8) K/ul RBC (3.93-5.22) M/uL Hgb (12.0-16.0) g/dl Hct (34.1-44.9) % MCV (80.0-100.0) fL MCH (25.0-34.0) pg MCHC (32.0-36.0) g/dL RDW Std Deviation (36.4-46.3) fL RDW Coeff of Pepe (11.5-14.5) % Plt Count (130-400) K/uL MPV (9.4-12.3) fL Immature Gran % (Auto) % Neut % (Auto) % Lymph % (Auto) % [place] % (Auto) % Eos % (Auto) % Baso % (Auto) % Neut # (Auto) (1.4-6.5) K/uL Lymph # (Auto) (1.2-3.4) K/uL [place] # (Auto) (0.24-0.82) K/uL Eos # (Auto) (0-0.50) K/uL Baso # (Auto) (0-0.2) K/uL Immature Gran # (Auto) (0.00-0.02) K/uL Toxic Vacuolation Sodium (136-145) mmol/L Potassium (3.5-5.1) mmol/L Chloride (98-107) mmol/L Carbon Dioxide (21-32) mmol/L Anion Gap (3-11) BUN (6-23) mg/dl Creatinine (0.6-1.2) mg/dl Est Cr Clr Drug Dosing ml/min Est GFR ( Amer) ml/min Est GFR (Non-Af Amer) ml/min BUN/Creatinine Ratio (10-20) Glucose (70-99(Fasting)) mg/dl Lactate (0.4-2.0) mmol/L Calcium (8.5-10.1) mg/dl Magnesium (1.7-2.4) mg/dl Total Bilirubin (0.2-1.0) mg/dl Direct Bilirubin (0-0.2) mg/dl AST (13-39) U/L ALT (7-52) U/L Alkaline Phosphatase (34-104) U/L Troponin I High Sens (0-14) pg/ml B-Natriuretic Peptide 599 H (0-100) pg/ml Total Protein (6.0-8.3) gm/dl Albumin (3.4-5.0) gm/dl Procalcitonin < 0.05 (0-0.5) ng/ml Urine Color Urine Appearance (Clear) Urine pH (4.5-7.5) Ur Specific [place] (1.000-1.030) Urine Protein (Negative) Urine Glucose (UA) (Negative) Urine Ketones (Negative) Urine Blood (Negative) Urine Nitrite (Negative) Urine Bilirubin (Negative) Urine Urobilinogen (Negative) Ur Leukocyte Esterase (Negative) Urine WBC (Auto) (0-5) /hpf Urine RBC (Auto) (0-4) /hpf U Hyaline Cast (Auto) (0-5) /lpf U Epithel Cells (Auto) (0-5) /lpf Urine Bacteria (Auto) (Negative) Urine Crystals (None Prsent) Other Crystals (None Prsent) SARS-CoV-2 (PCR) NEGATIVE (Negative) Influ A Molecular Assay (Negative) Influ B Molecular Assay (Negative) 08/07/22 08/07/22 Range/Units 12:14 13:02 WBC (4.8-10.8) K/ul RBC (3.93-5.22) M/uL Hgb (12.0-16.0) g/dl Hct (34.1-44.9) % MCV (80.0-100.0) fL MCH (25.0-34.0) pg MCHC (32.0-36.0) g/dL RDW Std Deviation (36.4-46.3) fL RDW Coeff of Pepe (11.5-14.5) % Plt Count (130-400) K/uL MPV (9.4-12.3) fL Immature Gran % (Auto) % Neut % (Auto) % Lymph % (Auto) % [place] % (Auto) % Eos % (Auto) % Baso % (Auto) % Neut # (Auto) (1.4-6.5) K/uL Lymph # (Auto) (1.2-3.4) K/uL [place] # (Auto) (0.24-0.82) K/uL Eos # (Auto) (0-0.50) K/uL Baso # (Auto) (0-0.2) K/uL Immature Gran # (Auto) (0.00-0.02) K/uL Toxic Vacuolation Sodium (136-145) mmol/L Potassium (3.5-5.1) mmol/L Chloride (98-107) mmol/L Carbon Dioxide (21-32) mmol/L Anion Gap (3-11) BUN (6-23) mg/dl Creatinine (0.6-1.2) mg/dl Est Cr Clr Drug Dosing ml/min Est GFR ( Amer) ml/min Est GFR (Non-Af Amer) ml/min BUN/Creatinine Ratio (10-20) Glucose (70-99(Fasting)) mg/dl Lactate (0.4-2.0) mmol/L Calcium (8.5-10.1) mg/dl Magnesium (1.7-2.4) mg/dl Total Bilirubin (0.2-1.0) mg/dl Direct Bilirubin (0-0.2) mg/dl AST (13-39) U/L ALT (7-52) U/L Alkaline Phosphatase (34-104) U/L Troponin I High Sens (0-14) pg/ml B-Natriuretic Peptide (0-100) pg/ml Total Protein (6.0-8.3) gm/dl Albumin (3.4-5.0) gm/dl Procalcitonin (0-0.5) ng/ml Urine Color Yellow Urine Appearance Cloudy A (Clear) Urine pH 6.5 (4.5-7.5) Ur Specific [place] 1.013 (1.000-1.030) Urine Protein Negative (Negative) Urine Glucose (UA) Negative (Negative) Urine Ketones Negative (Negative) Urine Blood Trace H (Negative) Urine Nitrite Negative (Negative) Urine Bilirubin Negative (Negative) Urine Urobilinogen Negative (Negative) Ur Leukocyte Esterase Trace H (Negative) Urine WBC (Auto) 1-5 (0-5) /hpf Urine RBC (Auto) 0-4 (0-4) /hpf U Hyaline Cast (Auto) 1-5 (0-5) /lpf U Epithel Cells (Auto) 10-20 H (0-5) /lpf Urine Bacteria (Auto) Negative (Negative) Urine Crystals Unidentified A (None Prsent) Other Crystals Unidentified A (None Prsent) SARS-CoV-2 (PCR) (Negative) Influ A Molecular Assay Negative (Negative) Influ B Molecular Assay Negative (Negative) Imaging Data Attestation: I personally reviewed and interpreted this imaging study as follows: My Impression: Chest x-rayshe has cardiomegaly. She does have some increased interstitial markings and I think she does have a degree of CHF. Radiologist's Impression: Chest X-Ray 08/07/22 11:49 SINGLE VIEW CHEST CLINICAL HISTORY: Sepsis. FINDINGS: An AP, portable, upright chest radiograph is compared to study dated 06/17/2022. A hiatal hernia is noted A 2-lead cardiac pacemaker is unchanged in position. The heart is enlarged noting atherosclerotic calcification of the thoracic and upper. There is pulmonary vascular congestion. There is mild bibasilar scarring/atelectasis. The lungs and pleural spaces are otherwise clear. No pneumothorax is seen. The skeletal structures are osteopenic. The bony thorax is grossly intact. Arthritic change is seen in the shoulders. IMPRESSION: 1. Cardiomegaly and cardiac pacemaker with pulmonary vascular congestion. 2. Hiatal hernia. ACT 112: Negative or not required by law. Electronically signed by: Hermilo Griffin M.D. 08/07/2022 1:17 PM ECG Data Attestation: I personally reviewed and interpreted this ECG as follows: Indication: + SOB/dyspnea Rate (beats per minute): 71 Rhythm: + other (Ventricular paced rhythm) ECG Intervals/blocks: + Normal QT ECG [place]: + Left axis deviation ECG ST segments: + Nonspecific ST abnormalities ECG Findings: no PACs or no PVCs Comparison ECG Date: from (02/24/22) Change: the following changes noted (Ventricular paced rhythm has replaced A. fib) MDM Narrative This patient comes in as scribed above. she was placed in room C5. she has been ill for about a week. on my exam she does have some audible wheezing which is mostly upper airway. She speaking full sentences however. She has had a deep hacking cough she has no history of lung disease. IV access was established I did order full sepsis type work-up. She does have a trace to 1+ bilateral lower extremity edema is possible this could be cardiac related as she has decreased her diuretic use as well. She is had no chest pain. Chest x-ray EKG and multiple blood testing was obtained including blood culture she was reassessed frequently. Her EKG does not suggest any ischemic changes with a paced rhythm. Troponin was negative. BNP is elevated and I do think she has a good degree of CHF clinically she was given Lasix 20 mg IV. COVID was negative, I did add influenza testing as well. I think she does have CHF she may have a respiratory infection on top of this as well. She was hypoxemic at times and dipped down into the 80s and did require oxygen. I do not think she would do well at home she got up and got went to the bathroom here was very short of breath. I have counseled the [facility] hospitalist to see her for these measures Continuous cardiac monitoring: Orders placed in EMR for continuous cardiac monitoring. Upon my interpretation patient noted be in a paced rhythm with a rate of 70 Impression & Plan CHF (congestive heart failure), SOB (shortness of breath), Cough, Hypoxemia, Lab test negative for COVID-19 virus Discharge Plan Visit Data Chief Complaint: Illness Stated Complaint: HEAD COLD, SOB, TROUBLE BREATHING ED Provider: Zac Castañeda Discharge Problem: CHF (congestive heart failure), SOB (shortness of breath), Cough, Hypoxemia, La b test negative for COVID-19 virus Patient Disposition: Admitted As Inpatient Discharge Instructions Interventions: ED Discharge Assessment Last Done: 08/07/22 16:06
[2022-08-07 12:56] LABS: Basophils # (auto) 0.05 K/uL (0-0.2); Basophils % (auto) 0.6 %; Eosinophils # (auto) 0.11 K/uL (0-0.50); Eosinophils % (auto) 1.3 %; Hematocrit (blood only) 44.1 % (34.1-44.9); Hemoglobin 14.8 g/dl (12.0-16.0); Immature Granulocytes # (auto) 0.04 K/uL (0.00-0.02); Immature Granulocytes % (auto) 0.5 %; Lymphocytes # (auto) 1.22 K/uL (1.2-3.4); Lymphocytes % (auto) 14.3 %; Mean Corpuscular Hemoglobin 29.6 pg (25.0-34.0); Mean Corpuscular Hgb Conc 33.6 g/dL (32.0-36.0); Mean Corpuscular Volume 88.2 fL (80.0-100.0); Mean Platelet Volume 9.4 fL (9.4-12.3); Monocytes # (auto) 0.79 K/uL (0.24-0.82); Monocytes % (auto) 9.2 %; Neutrophils # (auto) 6.34 K/uL (1.4-6.5); Neutrophils % (auto) 74.1 %; Platelet Count 248 K/uL (130-400); Toxic Vacuolation 1+; White Blood Count 8.55 K/ul (4.8-10.8)
[2022-08-07 12:59] LABS: Albumin Level 4.2 gm/dl (3.4-5.0); Bilirubin,Total 0.6 mg/dl (0.2-1.0); Calcium 9.3 mg/dl (8.5-10.1); Creatinine Clr Calc Pharmacy 56.2 ml/min; Est GFR (African American) 93.2 ml/min; Est GFR (Non-African American) 80.4 ml/min; Magnesium 1.7 mg/dl (1.7-2.4); Potassium 3.8 mmol/L (3.5-5.1); Total Protein 7.5 gm/dl (6.0-8.3)
[2022-08-07 13:04] LABS: Troponin I High Sensitivity 10.8 pg/ml (0-14)
--- NOTE | 2022-08-07 13:18 | XRay Report ---
SINGLE VIEW CHEST CLINICAL HISTORY: Sepsis. FINDINGS: An AP, portable, upright chest radiograph is compared to study dated 06/17/2022. A hiatal h ernia is noted A 2-lead cardiac pacemaker is unchanged in position. The heart is enlarged noting athe rosclerotic calcification of the thoracic and upper. There is pulmonary vascular congestion. There is mild bibasilar scarring/atelectasis. The lungs and pleural spaces are otherwise clear. No pneumothor ax is seen. The skeletal structures are osteopenic. The bony thorax is grossly intact. Arthritic chen ge is seen in the shoulders. IMPRESSION: 1. Cardiomegaly and cardiac pacemaker with pulmonary vascular congestion. 2. Hiatal hernia. ACT 112: Negative or not required by law. Electronically signed by: Hermilo Griffin M.D. 08/07/2022 1:17 PM
[2022-08-07 13:24] LABS: Appearance Urine Cloudy (Clear); Bacteria Urine Automated Negative (Negative); Bilirubin Urine Negative (Negative); Blood Urine Trace (Negative); Color Urine Yellow; Glucose Urine UA Negative (Negative); Ketones Urine Negative (Negative); Leukocyte Esterase Urine Trace (Negative); Nitrite Urine Negative (Negative); Protein Urine Negative (Negative); RBC Urine Automated 0-4 /hpf (0-4); Specific Gravity Urine 1.013 (1.000-1.030); Urobilinogen Urine Negative (Negative); pH Urine 6.5 (4.5-7.5)
[2022-08-07] MEDS ORDERED: FUROSEMIDE INJ 20 MG/2 ML VIAL IV ONE (14:03)
--- NOTE | 2022-08-07 14:39 | Electrocardiogram Report ---
Test Reason : Blood Pressure : / mmHG Vent. Rate : 071 BPM Atrial Rate : 119 BPM P-R Int : 000 ms QRS Dur : 150 ms QT Int : 436 ms P-R-T Axes : 000 266 083 degrees QTc Int : 473 ms Ventricular-paced rhythm Underlying rhythm atrial fibrillation Abnormal ECG When compared with ECG of 24-FEB-2022 08:53, Electronic ventricular pacemaker now present Confirmed by Mikael Hough ([id number]) on 08/07/2022 2:38:50 PM Referred By: REFERRED SELF Confirmed By:Mikael Hough
[2022-08-07 15:03] LABS: Influenza A virus by PCR Negative (Negative); Influenza B virus by PCR Negative (Negative)
--- NOTE | 2022-08-07 15:05 | History & Physical Report ---
Date of Service August 07, 2022 Assessment & Plan (1) Hypoxia: Plan: -Admit to med tele -Patient is currently afebrile, hemodynamically stable, and stable on 2L NC -At this time the patient's hypoxia is most consistent with a CHF exacerbation. She appears volume up on exam, is noted to have pulmonary edema on CXR, and BNP of 599. Procal was negative, no leukocytosis, no focal consolidations on CXR. Covid and flu swabs were negtive, will get respiratory biofire for further evaluation. -Low suspicion for PE at this time as she has been taking her Eliquis consistently, if current treatment plan does not improve her condition could consider CTPE -Was given 20 mg IV lasix in the ED, will continue with 20 mg IV BID for now, monitor intake, output, and daily weights -Patient denies excessive sodium intake -Will not repeat TTE as she just had her last on 08/01 -Can consider heart failure consult if needed -Adding incentive spirometry, flutter therapy, sugar free robitussin scheduled, prn albuterol, and prn O2 to keep SpO2 at or above 95% -AM CBC and BMP -SCDs and Eliquis for DVT PPX (2) Type 2 diabetes mellitus: Plan: -Hold gliipizide -Goal BSG of 110-140 -Monitor BSG ACHS -Correction factor of 55, carb ratio fo 19, 5 units lantus BID (3) Hypertension: Plan: -Continue enalapril and metoprolol (4) Atrial fibrillation with rapid ventricular response: Plan: -Rate controlled -Continue eliquis, metoprolol, and diltiazem (5) GERD (gastroesophageal reflux disease): Plan: -Continue omeprazole (6) Third degree AV block: Plan: -S/P pacemaker placement -Stable Plan The patient was discussed with Dr. 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 In the ED the patient was found to be afebrile, hemodynamically stable, but hypoxic into the low 90's on RA. Labs were remarkable for CBC WNL, stable renal function and electrolytes, glucose of 177, BNP of 599 with high sensitivity trop WNL, procal < 0.05, and covid/influenza negative. Chest xray showed "1. Cardiomegaly and cardiac pacemaker with pulmonary vascular congestion. 2. Hiatal hernia.". The patient was placed on 2L NC and remained stable. She was given 20 mg IV lasix prior to admission. At the time of the exam the patient was walking back from the bathroom with her Son helping her ambulate, she was in no acute distress but had an audible wheeze; history was obtained from both. They state that the patient has been feeling ill for the past week. Her symptoms have include runny nose, congestion, a productive cough with white sputum, SOB. She denies fever, chills, chest pain, abdominal pain, nausea, vomiting, diarrhea, dysuria, hematuria, bloody/dark stools, and recent falls. She states that she has had a poor appetite over the past week and has been generally weak. She lives at home alone and this morning she struggled getting out of bed and making breakfast because she felt so ill. She confirmed that she does not use oxygen at baseline and does not use nocturnal CPAP or oxygen. I spoke to her regarding her recent cardiology clinic visit on 08/01/22. She confirmed that since that visit she has been taking her 20 mg PO lasix every 3 days as recommended. She had a repeat echo on 08/01 as [facility] showed a LVEF of 55-60%, grade II diastolic dysfunction, severely dilated left atrium, and borderline pulmonary hypertension. I spoke to her regarding code status, she has a living will and is a DNR/DNI. Her son and daughter would make decisions for her if she could not make them herself. Please refer to Dr. Aragon's attestation for any changes to the treatment plan. Allergies Allergy/AdvReac Type Severity Reaction Status Date / Time Sulfa (Sulfonamide Allergy Intermediate Abdominal Verified 08/12/22 12:57 Antibiotics) cramping bee venom protein (honey bee) Allergy Mild SWELLING Verified 08/12/22 12:57 ciprofloxacin [From Cipro] Allergy Mild LOWER LEG Verified 08/12/22 12:57 SWELLING latex Allergy Mild RAW SKIN Verified 08/12/22 12:57 sulfamethoxazole Allergy Unknown CAN'T Verified 08/12/22 12:57 [From Bactrim] REMEMBER trimethoprim [From Bactrim] Allergy Unknown CAN'T Verified 08/12/22 12:57 REMEMBER primidone AdvReac Intermediate ESSENTIAL Verified 08/12/22 12:57 TREMORS adhesive AdvReac Mild RED;BROKEN Verified 08/12/22 12:57 SKIN alendronate sodium AdvReac Mild stomach Verified 08/12/22 12:57 [From Fosamax] pain buspirone AdvReac Mild Dizziness Verified 08/12/22 12:57 pneumococcal vaccine AdvReac Mild DISCOMFORT Verified 08/12/22 12:57 enoxaparin AdvReac Unknown NO LOVENOX Verified 08/12/22 12:[address] BARRIENTOS 11/17/09 [id number] ADM Home Medications Medication Instructions Recorded Confirmed Type calcium carbonate 600 mg-vitamin 1 tab PO BID 06/23/18 08/12/22 History D3 20 mcg (800 unit) chewable tablet (Caltrate 600 plus D) cranberry 500 mg capsule 500 mg PO QAM 06/23/18 08/12/22 History multivitamin 1 tab PO DAILY 06/23/18 08/12/22 History denosumab 60 mg/mL subcutaneous 60 mg subcut Q6MO 03/30/19 08/12/22 History syringe (Prolia) cholecalciferol (vitamin D3) 50 2,000 unit PO DAILY 05/10/19 08/12/22 History mcg (2,000 unit) tablet (Vitamin D3) omega-3 fatty acids 1,000 mg 2,000 mg PO QAM 05/10/19 08/12/22 History capsule Lactobacillus acidophilus 1 cap PO QAM 07/31/21 08/12/22 History (Acidophilus capsule) [employer] Lancets 30 gauge #200 ea 11/22/21 08/12/22 Rx (lancets) metoprolol succinate 100 mg 100 mg PO DAILY #90 tabs 05/03/22 08/12/22 Rx tablet,extended release 24 hr (Toprol XL) blood sugar diagnostic (OneTouch #200 ea 05/09/22 08/12/22 Rx Ultra Test strips) glipizide 2.5 mg tablet, extended 2.5 mg PO QPM #90 tabs 05/09/22 08/12/22 Rx release 24 hr sertraline 25 mg tablet 25 mg PO DAILY #30 tabs 05/23/22 08/12/22 Rx furosemide 20 mg tablet (Lasix) 20 mg PO Q OTHER DAY #45 tabs 05/30/22 08/12/22 Rx omeprazole 20 mg tablet,delayed 20 mg PO Q2D #90 tabs 05/30/22 08/12/22 Rx release apixaban 5 mg tablet (Eliquis) 5 mg PO BID #180 tabs 06/04/22 08/12/22 Rx diltiazem HCl 180 mg capsule,24 180 mg PO QAM #90 caps 06/27/22 08/12/22 Rx hr,extended release (Tiazac) amoxicillin 500 mg capsule 2,000 mg PO DIRECTED PRN PRIOR 08/07/22 08/12/22 History TO DENTAL PROCEDURES enalapril maleate 10 mg tablet 10 mg PO QAM 08/07/22 08/12/22 History guaifenesin 600 mg tablet, 600 mg PO BID PRN cough #30 tabs 08/10/22 08/12/22 Rx extended release 12 hr (Mucinex) atorvastatin 40 mg tablet 40 mg PO Q2D #45 tabs 08/13/22 Rx Past Med/Surg History Medical History Asthmatic bronchitis no inhaler used at this time Atrial fibrillation Bronchitis Congestion of nasal sinus Congestion of nasal sinus Cough Diabetes mellitus, type 2 Essential tremor Excessive cerumen in both ear canals GERD (gastroesophageal reflux disease) Gross hematuria Hearing deficit Hematuria Hyperlipidemia Hypertension Osteoarthritis Pacemaker BRADYCARDIA Pacemaker Perforated bowel Surgical History H/O: hysterectomy History of bowel resection WITH COLOSTOMY S/P BOWEL PERFORATION 1992 History of cataract surgery RT/LEFT History of colonoscopy History of colostomy reversal History of esophagogastroduodenoscopy (EGD) History of permanent cardiac pacemaker placement also battery replacement in 2009 and 2019 History of tooth extraction History of total knee replacement RT/LEFT Uterine fibroid REMOVED Family History Father Myocardial infarction Hypertension Heart disease Grandfather (Paternal) Myocardial infarction Uncle Myocardial infarction Mother Heart disease Hearing loss Hypertension Allergies Brother Asthma Other No family history of adverse response to anesthesia No family history of bleeding disorder No significant family history Denies family history of Colon cancer Ovarian cancer Prostate cancer Breast cancer Social History Smoking Status: Never smoker Second Hand Exposure: No; Hx Alcohol Use: No Hx Substance Use: No Preferred Language: Turkmen Communication Ability: Effective Visual Impairment: Limited Hearing Ability: Use of Hearing Aid Pcmh Specialist Required: No Beliefs That Will Affect Care: None marital status: / Current Living Situation: Alone current occupational status: retired Feels Safe at Home: Yes Childhood Exposure to Second-Hand Smoke: Yes Dental Care, Regularly: Yes Physical Activity Frequency: Daily Seatbelt Use: always Sunscreen Use: No Assistive Devices: Glasses, Hearing Aid - Left and Hearing Aid - Right Review of Systems Review of Systems: Denies current fever, chills, headache, changes in vision, hearing, taste, and smell, chest pain, abdominal pain, nausea, vomiting, diarrhea, hematemesis, melena, dysuria, hematuria, and recent falls. All systems have been reviewed and are otherwise negative. Physical Exam Physical Exam: Physical Exam: General: In no acute distress, stated age, well-nourished, non-toxic appearing HEENT: Normocephalic, atraumatic, no scleral icterus, pupils around round, symmetrical, and reactive to light, moist mucus membranes, +JVD, trachea midline, no thyromegaly Chest/Pulm: No respiratory distress, audible expiratory wheezing, symmetrical chest expansion, decreased breath sounds in the BL LE's with expiratory wheezing in all other lung horner Cardiac: irregular rate and rhythm, systolic murmur noted Abdomen: Negative for ascites and bruising, normoactive bowel sounds, soft, non-tender to palpation throughout Musculoskeletal: Symmetrical and without signs of acute trauma, upper and lower extremities with full ROM, no atrophy, spasticity, or flaccidity Extremities: Radial, dorsalis pedis, and posterior tibial pulses are intact and symmetrical, +1 pitting edema noted in the BL LE's Skin: Warm, dry, no rashes , lesions, or scars noted Neuro: Alert and oriented to person, place, month, year, and president, no focal defects, CN II-XII tested and intact, finger to nose test negative, baseline essential tremor noted Psych: No acute distress, calm and cooperative during the exam Results & Data Results & Data ([facility]) Vital Signs (Past 12 Hours) Vital Signs Temp Pulse Pulse Resp BP BP Pulse Ox 08/07/22 14:30 71 24 144/78 H 95 08/07/22 14:00 24 135/67 96 08/07/22 13:30 71 26 H 131/81 95 08/07/22 12:30 71 24 155/89 H 92 08/07/22 12:16 70 24 170/85 H 92 08/07/22 11:30 23 158/75 H 94 08/07/22 12:20 70 28 H 170/85 H 92 08/07/22 12:16 71 91 08/07/22 11:09 36.1 C L 81 28 H 178/79 H 95 O2 Del Method O2 Flow Rate 08/07/22 14:30 Nasal Cannula 2 08/07/22 14:00 Nasal Cannula 2 08/07/22 13:30 Nasal Cannula 2 08/07/22 12:30 Nasal Cannula 2 08/07/22 12:16 Nasal Cannula 2 08/07/22 11:30 Nasal Cannula 2 08/07/22 12:20 Room Air 08/07/22 12:16 Room Air 08/07/22 11:09 Room Air Laboratory Results Abnormal lab results 08/07/22 08/07/22 08/07/22 Range/Units 12:13 12:13 12:13 Immature Gran # (Auto) 0.04 H (0.00-0.02) K/uL Glucose 177 H (70-99(Fasting)) mg/dl B-Natriuretic Peptide 599 H (0-100) pg/ml Urine Appearance (Clear) Urine Blood (Negative) Ur Leukocyte Esterase (Negative) U Epithel Cells (Auto) (0-5) /lpf Urine Crystals (None Prsent) Other Crystals (None Prsent) 08/07/22 Range/Units 13:02 Immature Gran # (Auto) (0.00-0.02) K/uL Glucose (70-99(Fasting)) mg/dl B-Natriuretic Peptide (0-100) pg/ml Urine Appearance Cloudy A (Clear) Urine Blood Trace H (Negative) Ur Leukocyte Esterase Trace H (Negative) U Epithel Cells (Auto) 10-20 H (0-5) /lpf Urine Crystals Unidentified A (None Prsent) Other Crystals Unidentified A (None Prsent) Diagnostic Findings Chest X-Ray 08/07/22 11:49 SINGLE VIEW CHEST CLINICAL HISTORY: Sepsis. FINDINGS: An AP, portable, upright chest radiograph is compared to study dated 06/17/2022. A hiatal hernia is noted A 2-lead cardiac pacemaker is unchanged in position. The heart is enlarged noting atherosclerotic calcification of the thoracic and upper. There is pulmonary vascular congestion. There is mild bibasilar scarring/atelectasis. The lungs and pleural spaces are otherwise clear. No pneumothorax is seen. The skeletal structures are osteopenic. The bony thorax is grossly intact. Arthritic change is seen in the shoulders. IMPRESSION: 1. Cardiomegaly and cardiac pacemaker with pulmonary vascular congestion. 2. Hiatal hernia. ACT 112: Negative or not required by law. Electronically signed by: Hermilo Griffin M.D. 08/07/2022 1:17 PM ECG Additional Comments: Ventricular-paced rhythm Underlying rhythm atrial fibrillation Abnormal ECG When compared with ECG of 24-FEB-2022 08:53, Electronic ventricular pacemaker now present Confirmed by Mikael Hough ([id number]) on 08/07/2022 2:38:50 PM Code Status & VTE Plan Code Status DNR/DNI Supervising Physician Co-Signing Physician Notes Patient seen and examined by bedside. I obtained a history and physical examination during face to face encounter. I discussed plan of care with patient and APC Peno. I reviewed above note and agree with it. Patient admitted with RSV, on supplemental oxygen May have component of fluid overload. Will continue supportive care and low dose diuretics. 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 insulin use: without fpc use Hypertension I10 Hypertension type: essential hypertension Atrial fibrillation with rapid ventricular response I48.91 GERD (gastroesophageal reflux disease) K21.9 Esophagitis presence: without esophagitis Third degree AV block I44.2 (1) Type 2 diabetes mellitus Diabetes mellitus complication status: without complication Diabetes mellitus fpc insulin use: without fpc use Qualified Code(s): E11.9 - Type 2 diabetes mellitus without complications (2) GERD (gastroesophageal reflux disease) Esophagitis presence: without esophagitis Qualified Code(s): K21.9 - Gastro- esophageal reflux disease without esophagitis (3) Hypertension Hypertension type: essential hypertension Qualified Code(s): I10 - Essential (primary) hypertension
[2022-08-07] MEDS ORDERED: GLUCAGON FOR INJ 1 MG VIAL SQ PRN (15:06)
[2022-08-07] MEDS ORDERED: CARBOHYDRATES FOR HYPOGLYCEMIA PO PRN (15:06)
[2022-08-07] MEDS ORDERED: DEXTROSE 50% 50 ML SYRINGE IV PRN (15:06)
[2022-08-07] MEDS ORDERED: GLUCOSE 40% GEL 15 GM TUBE PO PRN (15:06)
[2022-08-07] MEDS ORDERED: GLUCOSE 10 TAB/TUBE PO PRN (15:06)
[2022-08-07] MEDS: guaiFENesin SUGAR FREE 200 MG/10 ML UDC PO SCH ×2 (15:53→20:26)
[2022-08-07 16:42] LABS: Adenovirus PCR Not Detected (NotDetected); Bordetella parapertussis PCR Not Detected (NotDetected); Bordetella pertussis PCR Not Detected (NotDetected); Chlamydia pneumoniae PCR Not Detected (NotDetected); Coronavirus 229E PCR Not Detected (NotDetected); Coronavirus CoV-2 (COVID19)PCR Not Detected (NotDetected); Coronavirus HKU1 PCR Not Detected (NotDetected); Coronavirus NL63 PCR Not Detected (NotDetected); Coronavirus OC43PCR Not Detected (NotDetected); Human Metapneumovirus PCR Not Detected (NotDetected); Influenza A PCR Not Detected (NotDetected); Influenza B PCR Not Detected (NotDetected); Mycoplasma pneumoniae PCR Not Detected (NotDetected); Parainfluenza Virus 1 PCR Not Detected (NotDetected); Parainfluenza Virus 2 PCR Not Detected (NotDetected); Parainfluenza Virus 3 PCR Not Detected (NotDetected); Parainfluenza Virus 4 PCR Not Detected (NotDetected); Rhinovirus/Enterovirus PCR Not Detected (NotDetected)
[2022-08-07] MEDS: INSULIN ASPART PER UNIT SC SCH ×2 (16:49→21:51)
[2022-08-07 16:59] LABS: Respiratory Syncytial VirusPCR DETECTED (NotDetected)
[2022-08-07] MEDS: ALBUTEROL 0.5% NEB SOLN 2.5 MG/0.5 ML VIAL NEB SCH (20:21)
[2022-08-07] MEDS: APIXABAN 5 MG TABLET PO SCH (20:26)
[2022-08-07] MEDS: CALCIUM 600MG + VIT D 400 IU TAB PO SCH (20:26)
[2022-08-07] MEDS: FUROSEMIDE INJ 20 MG/2 ML VIAL IV SCH (20:27)
[2022-08-07] MEDS: LANTUS PER UNIT CHARGE SQ SCH (21:50)
[2022-08-08] MEDS: ALBUTEROL 0.5% NEB SOLN 2.5 MG/0.5 ML VIAL NEB SCH ×4 (01:01→20:06)
[2022-08-08] MEDS: guaiFENesin SUGAR FREE 200 MG/10 ML UDC PO SCH ×4 (04:20→21:43)
[2022-08-08] MEDS: INSULIN ASPART PER UNIT SC SCH ×4 (08:37→21:42)
[2022-08-08] MEDS: dilTIAZem HCL 180 MG CAPCR PO SCH (08:38)
[2022-08-08] MEDS: LANTUS PER UNIT CHARGE SQ SCH ×2 (08:38→21:41)
[2022-08-08] MEDS: CHOLECALCIFEROL 1,000 UNITS 25 MCG TAB PO SCH (08:38)
[2022-08-08] MEDS: APIXABAN 5 MG TABLET PO SCH ×2 (08:39→21:27)
[2022-08-08] MEDS: CALCIUM 600MG + VIT D 400 IU TAB PO SCH ×2 (08:39→21:28)
[2022-08-08] MEDS: MULTIVITAMIN TAB PO SCH (08:39)
[2022-08-08] MEDS: ENALAPRIL MALEATE 10 MG TAB PO SCH (08:39)
[2022-08-08] MEDS: METOPROLOL SUCC 50MG EXT REL TAB PO SCH (08:39)
[2022-08-08] MEDS: FUROSEMIDE INJ 20 MG/2 ML VIAL IV SCH ×2 (08:39→17:00)
[2022-08-08] MEDS: SERTRALINE HCL 50 MG TABLET PO SCH (08:39)
[2022-08-08 09:03] LABS: Hematocrit (blood only) 42.9 % (34.1-44.9); Hemoglobin 14.6 g/dl (12.0-16.0); Mean Corpuscular Hemoglobin 29.6 pg (25.0-34.0); Mean Corpuscular Volume 86.8 fL (80.0-100.0); Mean Platelet Volume 9.8 fL (9.4-12.3); Platelet Count 250 K/uL (130-400); RDW Coefficient of Variation 13.2 % (11.5-14.5); RDW Standard Deviation 41.2 fL (36.4-46.3); Red Blood Count 4.94 M/uL (3.93-5.22); White Blood Count 9.29 K/ul (4.8-10.8)
[2022-08-08 09:25] LABS: Albumin Globulin Ratio 1.5 (0.9-2); BUN Creatinine Ratio 21.5 (10-20); Bilirubin,Total 0.8 mg/dl (0.2-1.0); Calcium 9.5 mg/dl (8.5-10.1); Creatinine Clr Calc Pharmacy 54.3 ml/min; Est GFR (African American) 93.2 ml/min; Est GFR (Non-African American) 80.4 ml/min; Globulin 2.7 gm/dl (2.5-4.0); Potassium 3.5 mmol/L (3.5-5.1); Total Protein 6.7 gm/dl (6.0-8.3)
[2022-08-08] MEDS ORDERED: ACETAMINOPHEN 325 MG TAB PO PRN (17:57)
--- NOTE | 2022-08-08 18:18 | XRay Report ---
XR chest 2V PA/lateral CLINICAL HISTORY: Hypoxia. COMPARISON STUDY: Chest radiograph August 07, 2022. FINDINGS: A left subclavian pacer is in place. Moderate cardiomegaly. Pulmonary edema has slightly im proved. There are trace bilateral pleural effusions. No pneumothorax. A large hiatal hernia with intr athoracic stomach is noted which contains air-fluid levels. No consolidation to suggest. IMPRESSION: 1. Mild improvement in pulmonary edema. Trace bilateral pleural effusions. 2. Hiatal hernia. ACT 112: Negative or not required by law. Electronically signed by: Luis Alfredo Bain M.D. 08/08/2022 6:16 PM
--- NOTE | 2022-08-08 22:34 | Hospitalist Progress Note ---
Date of Service August 08, 2022 Assessment & Plan (1) Hypoxia: Plan: RSV pneumonia with likely acute diastolic heart failure -Admit to med tele -Patient is currently afebrile, hemodynamically stable, and stable on 2L NC -At this time the patient's hypoxia is most consistent with a CHF exacerbation. She appears volume up on exam, is noted to have pulmonary edema on CXR, and BNP of 599. Procal was negative, no leukocytosis, no focal consolidations on CXR. Covid and flu swabs were negtive, will get respiratory biofire for further evaluation. -Low suspicion for PE at this time as she has been taking her Eliquis consistently, if current treatment plan does not improve her condition could consider CTPE -Was given 20 mg IV lasix in the ED, will continue with 20 mg IV BID for now, monitor intake, output, and daily weights -Patient denies excessive sodium intake -Will not repeat TTE as she just had her last on 08/01 -Can consider heart failure consult if needed -Adding incentive spirometry, flutter therapy, sugar free robitussin scheduled, prn albuterol, and prn O2 to keep SpO2 at or above 95% -AM CBC and BMP -SCDs and Eliquis for DVT PPX On 08/08 will continue current plan, continue to diurese, will recheck chest x ray. Plan is possible discharge in 48 hours. now on 1 liter. (2) Type 2 diabetes mellitus: Plan: -Hold gliipizide -Goal BSG of 110-140 -Monitor BSG ACHS -Correction factor of 55, carb ratio fo 19, 5 units lantus BID (3) Hypertension: Plan: -Continue enalapril and metoprolol (4) Atrial fibrillation with rapid ventricular response: Plan: -Rate controlled -Continue eliquis, metoprolol, and diltiazem (5) GERD (gastroesophageal reflux disease): Plan: -Continue omeprazole (6) Third degree AV block: Plan: -S/P pacemaker placement -Stable Plan The patient was discussed with Dr. Aragon at the time of the admission Admission and Anticipated Discharge Date Admission Date: August 07, 2022 Subjective 86 yo female reports feeling better. She is not at her baseline Review of Systems Review of Systems: All systems reviewed & are unremarkable except as noted in HPI & below Physical Exam Physical Exam: General: In no acute distress, stated age, well-nourished, non- toxic appearing HEENT: Normocephalic, atraumatic, no scleral icterus, pupils around round, symmetrical, and reactive to light, moist mucus membranes, +JVD, trachea midline, no thyromegaly Chest/Pulm: No respiratory distress, symmetrical chest expansion, contiues to have wheezing Cardiac: irregular rate and rhythm, systolic murmur noted Abdomen: Negative for ascites and bruising, normoactive bowel sounds, soft, non- tender to palpation throughout Musculoskeletal: Symmetrical and without signs of acute trauma, upper and lower extremities with full ROM, no atrophy, spasticity, or flaccidity Extremities: Radial, dorsalis pedis, and posterior tibial pulses are intact and symmetrical, +1 pitting edema noted in the BL LE's Skin: Warm, dry, no rashes , lesions, or scars noted Neuro: Alert and oriented to person, place, month, year, and president, no focal defects, CN II-XII tested and intact, finger to nose test negative, baseline essential tremor noted Psych: No acute distress, calm and cooperative during the exam Results & Data Results & Data ([facility]) Vital Signs (Past 12 Hours) Vital Signs Temp Pulse Pulse Resp BP Pulse Ox Pulse Ox 08/08/22 20:06 70 20 93 08/08/22 20:00 37.5 C 69 22 116/63 93 08/08/22 16:31 94 08/08/22 15:29 78 08/08/22 15:28 37.6 C H 74 18 124/67 95 08/08/22 13:12 72 19 95 08/08/22 12:17 37.0 C 77 18 133/75 98 08/08/22 12:41 08/08/22 12:00 92 O2 Del Method O2 Del Method O2 Flow Rate O2 Flow Rate 08/08/22 20:06 Nasal Cannula 1 08/08/22 20:00 Nasal Cannula 1 08/08/22 16:31 Nasal Cannula 1 08/08/22 15:29 08/08/22 15:28 Nasal Cannula 1 08/08/22 13:12 Nasal Cannula 2 08/08/22 12:17 Nasal Cannula 2 08/08/22 12:41 Nasal Cannula 2 08/08/22 12:00 Nasal Cannula 2 PG Care Time/CCT Total # of Minutes Spent Total Time Spent with Patient: Total time spent is greater than 50% in coordination of care (as documented) at patient's floor/unit and/or counseling patient: Coding Level of Care Code 89623 Subseq Hosp Care Lvl 2 Diagnoses Hypoxia R09.02 Type 2 diabetes mellitus E11.9 Diabetes mellitus complication status: without complication Diabetes mellitus long term care pharmacist insulin use: without long term care pharmacist use Hypertension I10 Hypertension type: essential hypertension Atrial fibrillation with rapid ventricular response I48.91 GERD (gastroesophageal reflux disease) K21.9 Esophagitis presence: without esophagitis Third degree AV block I44.2 Time Spent (min) 25 (1) Type 2 diabetes mellitus Diabetes mellitus complication status: without complication Diabetes mellitus senior living insulin use: without long term care pharmacist use Qualified Code(s): E11.9 - Type 2 diabetes mellitus without complications (2) GERD (gastroesophageal reflux disease) Esophagitis presence: without esophagitis Qualified Code(s): K21.9 - Gastro- esophageal reflux disease without esophagitis (3) Hypertension Hypertension type: essential hypertension Qualified Code(s): I10 - Essential (primary) hypertension
[2022-08-09] MEDS: ALBUTEROL 0.5% NEB SOLN 2.5 MG/0.5 ML VIAL NEB SCH ×5 (00:54→23:38)
[2022-08-09] MEDS: guaiFENesin SUGAR FREE 200 MG/10 ML UDC PO SCH ×4 (03:37→20:48)
[2022-08-09 08:01] LABS: Hematocrit (blood only) 40.6 % (34.1-44.9); Hemoglobin 13.6 g/dl (12.0-16.0); Mean Corpuscular Hemoglobin 29.7 pg (25.0-34.0); Mean Corpuscular Hgb Conc 33.5 g/dL (32.0-36.0); Mean Corpuscular Volume 88.6 fL (80.0-100.0); Mean Platelet Volume 9.7 fL (9.4-12.3); Platelet Count 233 K/uL (130-400); RDW Coefficient of Variation 13.1 % (11.5-14.5); RDW Standard Deviation 42.4 fL (36.4-46.3); Red Blood Count 4.58 M/uL (3.93-5.22)
[2022-08-09] MEDS: ENALAPRIL MALEATE 10 MG TAB PO SCH (08:25)
[2022-08-09] MEDS: dilTIAZem HCL 180 MG CAPCR PO SCH (08:25)
[2022-08-09] MEDS: APIXABAN 5 MG TABLET PO SCH ×2 (08:25→20:24)
[2022-08-09] MEDS: SERTRALINE HCL 50 MG TABLET PO SCH (08:25)
[2022-08-09] MEDS: CALCIUM 600MG + VIT D 400 IU TAB PO SCH ×2 (08:25→20:24)
[2022-08-09] MEDS: MULTIVITAMIN TAB PO SCH (08:25)
[2022-08-09] MEDS: CHOLECALCIFEROL 1,000 UNITS 25 MCG TAB PO SCH (08:26)
[2022-08-09] MEDS: METOPROLOL SUCC 50MG EXT REL TAB PO SCH (08:26)
[2022-08-09] MEDS: FUROSEMIDE INJ 20 MG/2 ML VIAL IV SCH ×2 (08:27→17:10)
[2022-08-09 08:33] LABS: Alanine Aminotransferase 20 U/L (7-52); Albumin Globulin Ratio 1.1 (0.9-2); Albumin Level 3.4 gm/dl (3.4-5.0); Alkaline Phosphatase 71 U/L (34-104); Anion Gap 4 (3-11); BUN Creatinine Ratio 28.6 (10-20); Bilirubin,Total 0.6 mg/dl (0.2-1.0); Blood Urea Nitrogen 18 mg/dl (6-23); C Reactive Protein 3.63 mg/dl (0-0.5); Calcium 8.9 mg/dl (8.5-10.1); Carbon Dioxide 36 mmol/L (21-32); Chloride 98 mmol/L (98-107); Creatinine Clr Calc Pharmacy 56.3 ml/min; Est GFR (African American) 94.1 ml/min; Est GFR (Non-African American) 81.2 ml/min; Glucose 128 mg/dl (70-99(Fasting)); Sodium 138 mmol/L (136-145); Total Protein 6.4 gm/dl (6.0-8.3)
[2022-08-09] MEDS: INSULIN ASPART PER UNIT SC SCH ×4 (08:38→20:43)
[2022-08-09] MEDS: LANTUS PER UNIT CHARGE SQ SCH ×2 (08:39→20:42)
[2022-08-09] MEDS ORDERED: ATORVASTATIN 40 MG TAB PO SCH (09:00)
[2022-08-09] MEDS ORDERED: PANTOprazole 40 MG TAB PO SCH (09:00)
[2022-08-09 11:00] LABS: Potassium 3.5 mmol/L (3.5-5.1)
--- NOTE | 2022-08-09 22:39 | Hospitalist Progress Note ---
Date of Service August 09, 2022 Assessment & Plan (1) Hypoxia: Plan: RSV pneumonia with likely acute diastolic heart failure -Admit to med tele -Patient is currently afebrile, hemodynamically stable, and stable on 2L NC -At this time the patient's hypoxia is most consistent with a CHF exacerbation. She appears volume up on exam, is noted to have pulmonary edema on CXR, and BNP of 599. Procal was negative, no leukocytosis, no focal consolidations on CXR. Covid and flu swabs were negtive, will get respiratory biofire for further evaluation. -Low suspicion for PE at this time as she has been taking her Eliquis consistently, if current treatment plan does not improve her condition could consider CTPE -Was given 20 mg IV lasix in the ED, will continue with 20 mg IV BID for now, monitor intake, output, and daily weights -Patient denies excessive sodium intake -Will not repeat TTE as she just had her last on 08/01 -Can consider heart failure consult if needed -Adding incentive spirometry, flutter therapy, sugar free robitussin scheduled, prn albuterol, and prn O2 to keep SpO2 at or above 95% -AM CBC and BMP -SCDs and Eliquis for DVT PPX On 08/08 will continue current plan, continue to diurese, will recheck chest x ray. Plan is possible discharge in 48 hours. now on 1 liter. On 08/09 Has required intermittently at rest 2 liters, back to room air. Lungs continue to have wheezing. will continue current diuretics. Plan for discharge either 08/10 or 08/11 will need 2 step prior to discharge. updated family (2) Type 2 diabetes mellitus: Plan: -Hold gliipizide -Goal BSG of 110-140 -Monitor BSG ACHS -Correction factor of 55, carb ratio fo 19, 5 units lantus BID (3) Hypertension: Plan: -Continue enalapril and metoprolol (4) Atrial fibrillation with rapid ventricular response: Plan: -Rate controlled -Continue eliquis, metoprolol, and diltiazem (5) GERD (gastroesophageal reflux disease): Plan: -Continue omeprazole (6) Third degree AV block: Plan: -S/P pacemaker placement -Stable Plan The patient was discussed with Dr. Aragon at the time of the admission Admission and Anticipated Discharge Date Admission Date: August 07, 2022 Subjective 86 yo female reports feeling better. She required 2 liters in the AM. Now on room air. Review of Systems Review of Systems: All systems reviewed & are unremarkable except as noted in HPI & below Physical Exam Physical Exam: General: In no acute distress, stated age, well-nourished, non- toxic appearing HEENT: Normocephalic, atraumatic, no scleral icterus, pupils around round, symmetrical, and reactive to light, moist mucus membranes, +JVD, trachea midline, no thyromegaly Chest/Pulm: No respiratory distress, symmetrical chest expansion, contiues to have wheezing Cardiac: irregular rate and rhythm, systolic murmur noted Abdomen: Negative for ascites and bruising, normoactive bowel sounds, soft, non- tender to palpation throughout Musculoskeletal: Symmetrical and without signs of acute trauma, upper and lower extremities with full ROM, no atrophy, spasticity, or flaccidity Extremities: Radial, dorsalis pedis, and posterior tibial pulses are intact and symmetrical, +1 pitting edema noted in the BL LE's Skin: Warm, dry, no rashes , lesions, or scars noted Neuro: Alert and oriented to person, place, month, year, and president, no focal defects, CN II-XII tested and intact, finger to nose test negative, baseline essential tremor noted Psych: No acute distress, calm and cooperative during the exam Results & Data Results & Data ([facility]) Vital Signs (Past 12 Hours) Vital Signs Temp Pulse Pulse Resp BP Pulse Ox Pulse Ox 08/09/22 20:00 36.7 C 73 18 120/67 91 08/09/22 20:11 69 18 90 08/09/22 15:04 37.1 C 74 18 122/67 93 08/09/22 14:58 77 08/09/22 14:55 93 08/09/22 13:55 71 17 95 08/09/22 11:06 36.9 C 71 18 127/77 95 Pulse Ox Pulse Ox O2 Del Method O2 Flow Rate O2 Flow Rate O2 Flow Rate O2 Flow Rate 08/09/22 20:00 Room Air 08/09/22 20:11 Room Air 08/09/22 15:04 Room Air 08/09/22 14:58 08/09/22 14:55 93 93 1 1 1 08/09/22 13:55 Nasal Cannula 1 08/09/22 11:06 Nasal Cannula 2 PG Care Time/CCT Total # of Minutes Spent Total Time Spent with Patient: Total time spent is greater than 50% in coordination of care (as documented) at patient's floor/unit and/or counseling patient: Coding Level of Care Code 44301 Subseq Hosp Care Lvl 2 Diagnoses Hypoxia R09.02 Type 2 diabetes mellitus E11.9 Diabetes mellitus complication status: without complication Diabetes mellitus terminal operator insulin use: without terminal operator use Hypertension I10 Hypertension type: essential hypertension Atrial fibrillation with rapid ventricular response I48.91 GERD (gastroesophageal reflux disease) K21.9 Esophagitis presence: without esophagitis Third degree AV block I44.2 Time Spent (min) 25 (1) Type 2 diabetes mellitus Diabetes mellitus complication status: without complication Diabetes mellitus terminal operator insulin use: without snf use Qualified Code(s): E11.9 - Type 2 diabetes mellitus without complications (2) GERD (gastroesophageal reflux disease) Esophagitis presence: without esophagitis Qualified Code(s): K21.9 - Gastro- esophageal reflux disease without esophagitis (3) Hypertension Hypertension type: essential hypertension Qualified Code(s): I10 - Essential (primary) hypertension
[2022-08-10] MEDS: guaiFENesin SUGAR FREE 200 MG/10 ML UDC PO SCH ×2 (03:48→09:24)
[2022-08-10 06:42] LABS: Hematocrit (blood only) 40.1 % (34.1-44.9); Hemoglobin 13.7 g/dl (12.0-16.0); Mean Corpuscular Hemoglobin 29.6 pg (25.0-34.0); Mean Corpuscular Hgb Conc 34.2 g/dL (32.0-36.0); Mean Corpuscular Volume 86.6 fL (80.0-100.0); Mean Platelet Volume 9.5 fL (9.4-12.3); Platelet Count 226 K/uL (130-400); RDW Coefficient of Variation 13.1 % (11.5-14.5); RDW Standard Deviation 40.8 fL (36.4-46.3); Red Blood Count 4.63 M/uL (3.93-5.22); White Blood Count 7.01 K/ul (4.8-10.8)
[2022-08-10 07:02] LABS: Albumin Globulin Ratio 1.2 (0.9-2); Albumin Level 3.4 gm/dl (3.4-5.0); BUN Creatinine Ratio 32.8 (10-20); Bilirubin,Total 0.6 mg/dl (0.2-1.0); Calcium 8.8 mg/dl (8.5-10.1); Creatinine Clr Calc Pharmacy 57.9 ml/min; Est GFR (African American) 95.1 ml/min; Est GFR (Non-African American) 82.1 ml/min; Globulin 2.8 gm/dl (2.5-4.0); Potassium 3.3 mmol/L (3.5-5.1); Total Protein 6.2 gm/dl (6.0-8.3)
[2022-08-10] MEDS: ALBUTEROL 0.5% NEB SOLN 2.5 MG/0.5 ML VIAL NEB SCH ×2 (07:24→13:55)
[2022-08-10] MEDS: INSULIN ASPART PER UNIT SC SCH ×2 (09:23→12:33)
[2022-08-10] MEDS: LANTUS PER UNIT CHARGE SQ SCH (09:23)
[2022-08-10] MEDS: dilTIAZem HCL 180 MG CAPCR PO SCH (09:24)
[2022-08-10] MEDS: CALCIUM 600MG + VIT D 400 IU TAB PO SCH (09:25)
[2022-08-10] MEDS: ENALAPRIL MALEATE 10 MG TAB PO SCH (09:25)
[2022-08-10] MEDS: METOPROLOL SUCC 50MG EXT REL TAB PO SCH (09:25)
[2022-08-10] MEDS: CHOLECALCIFEROL 1,000 UNITS 25 MCG TAB PO SCH (09:25)
[2022-08-10] MEDS: MULTIVITAMIN TAB PO SCH (09:25)
[2022-08-10] MEDS: SERTRALINE HCL 50 MG TABLET PO SCH (09:25)
[2022-08-10] MEDS: APIXABAN 5 MG TABLET PO SCH (09:25)
[2022-08-10] MEDS: FUROSEMIDE INJ 20 MG/2 ML VIAL IV SCH (09:26)
[2022-08-10] MEDS ORDERED: FUROSEMIDE INJ 20 MG/2 ML VIAL IV ONE (09:58)
[2022-08-10] MEDS ORDERED: POTASSIUM CHLORIDE CRTAB 20 MEQ TABCR PO STA (09:58)
--- NOTE | 2022-08-10 10:05 | Discharge Summary ---
Date of Service August 10, 2022 Admission HPI Per Admitting Provider Beckie is an 86 year old female with a PMH significant for third degree AV block S/P Dual chamber pacemaker placement, Grade II diastolic dysfunction on TTE from 08/01/22, pulmonary hypertension, paroxysmal afib on eliquis, HTN, dyslipidemia, uterine cancer S/P hysterectomy in 2019, DM II, GERD, essential tremor and anxiety who presented to the [facility] ED on 08/07/22 with a chief complaint of feeling ill. In the ED the patient was found to be afebrile, hemodynamically stable, but hypoxic into the low 90's on RA. Labs were remarkable for CBC WNL, stable renal function and electrolytes, glucose of 177, BNP of 599 with high sensitivity trop WNL, procal < 0.05, and covid/influenza negative. Chest xray showed "1. Cardiomegaly and cardiac pacemaker with pulmonary vascular congestion. 2. Hiatal hernia.". The patient was placed on 2L NC and remained stable. She was given 20 mg IV lasix prior to admission. At the time of the exam the patient was walking back from the bathroom with her Son helping her ambulate, she was in no acute distress but had an audible wheeze; history was obtained from both. They state that the patient has been feeling ill for the past week. Her symptoms have include runny nose, congestion, a productive cough with white sputum, SOB. She denies fever, chills, chest pain, abdominal pain, nausea, vomiting, diarrhea, dysuria, hematuria, bloody/dark stools, and recent falls. She states that she has had a poor appetite over the past week and has been generally weak. She lives at home alone and this morning she struggled getting out of bed and making breakfast because she felt so ill. She confirmed that she does not use oxygen at baseline and does not use nocturnal CPAP or oxygen. I spoke to her regarding her recent cardiology clinic visit on 08/01/22. She confirmed that since that visit she has been taking her 20 mg PO lasix every 3 days as recommended. She had a repeat echo on 08/01 as well [facility] showed a LVEF of 55-60%, grade II diastolic dysfunction, severely dilated left atrium, and borderline pulmonary hypertension. I spoke to her regarding code status, she has a living will and is a DNR/DNI. Her son and daughter would make decisions for her if she could not make them herself. Please refer to Dr. Aragon's attestation for any changes to the treatment plan. Principal Diagnosis Acute on chronic diastolic CHF RSV pneumonia with likely acute diastolic heart failure Discharge Exam General: In no acute distress, stated age, well-nourished, non-toxic appearing HEENT: Normocephalic, atraumatic, no scleral icterus, pupils around round, symmetrical, and reactive to light, moist mucus membranes, +JVD, trachea midline, no thyromegaly Chest/Pulm: No respiratory distress, symmetrical chest expansion, clear lung sounds Cardiac: irregular rate and rhythm, systolic murmur noted Abdomen: Negative for ascites and bruising, normoactive bowel sounds, soft, non- tender to palpation throughout Musculoskeletal: Symmetrical and without signs of acute trauma, upper and lower extremities with full ROM, no atrophy, spasticity, or flaccidity Extremities: Radial, dorsalis pedis, and posterior tibial pulses are intact and symmetrical, +1 pitting edema noted in the BL LE's Skin: Warm, dry, no rashes , lesions, or scars noted Neuro: Alert and oriented to person, place, month, year, and president, no focal defects, CN II-XII tested and intact, finger to nose test negative, baseline essential tremor noted Psych: No acute distress, calm and cooperative during the exam Discharge Data Allergies Allergy/AdvReac Type Severity Reaction Status Date / Time Sulfa (Sulfonamide Allergy Intermediate Abdominal Verified 08/12/22 12:57 Antibiotics) cramping bee venom protein (honey bee) Allergy Mild SWELLING Verified 08/12/22 12:57 ciprofloxacin [From Cipro] Allergy Mild LOWER LEG Verified 08/12/22 12:57 SWELLING latex Allergy Mild RAW SKIN Verified 08/12/22 12:57 sulfamethoxazole Allergy Unknown CAN'T Verified 08/12/22 12:57 [From Bactrim] REMEMBER trimethoprim [From Bactrim] Allergy Unknown CAN'T Verified 08/12/22 12:57 REMEMBER primidone AdvReac Intermediate ESSENTIAL Verified 08/12/22 12:57 TREMORS adhesive AdvReac Mild RED;BROKEN Verified 08/12/22 12:57 SKIN alendronate sodium AdvReac Mild stomach Verified 08/12/22 12:57 [From Fosamax] pain buspirone AdvReac Mild Dizziness Verified 08/12/22 12:57 pneumococcal vaccine AdvReac Mild DISCOMFORT Verified 08/12/22 12:57 enoxaparin AdvReac Unknown NO LOVENOX Verified 08/12/22 12:[address] BARRIENTOS 11/17/09 [id number] ADM Consultations 08/07/22 14:28 ED Decision to Admit Stat Hospital Course (1) Hypoxia: Acute on chronic diastolic CHF RSV pneumonia with likely acute diastolic heart failure -Admit to med tele -Patient is currently afebrile, hemodynamically stable, and stable on 2L NC -At this time the patient's hypoxia is most consistent with a CHF exacerbation. She appears volume up on exam, is noted to have pulmonary edema on CXR, and BNP of 599. Procal was negative, no leukocytosis, no focal consolidations on CXR. Covid and flu swabs were negtive, will get respiratory biofire for further evaluation. -Low suspicion for PE at this time as she has been taking her Eliquis consistently, if current treatment plan does not improve her condition could consider CTPE -Was given 20 mg IV lasix in the ED, will continue with 20 mg IV BID for now, monitor intake, output, and daily weights -Patient denies excessive sodium intake -Will not repeat TTE as she just had her last on 08/01 -Can consider heart failure consult if needed -Adding incentive spirometry, flutter therapy, sugar free robitussin scheduled, prn albuterol, and prn O2 to keep SpO2 at or above 95% -AM CBC and BMP -SCDs and Eliquis for DVT PPX On 08/08 will continue current plan, continue to diurese, will recheck chest x ray. Plan is possible discharge in 48 hours. now on 1 liter. On 08/09 Has required intermittently at rest 2 liters, back to room air. Lungs continue to have wheezing. will continue current diuretics. Plan for discharge either 08/10 or 08/11 will need 2 step prior to discharge. updated family On 08/10 Patient passed her 2 step, Patient will be discharged. Ok to continue mucinez. (2) Type 2 diabetes mellitus: -resume home meds (3) Hypertension: -Continue enalapril and metoprolol (4) Atrial fibrillation with rapid ventricular response: -Rate controlled -Continue eliquis, metoprolol, and diltiazem (5) GERD (gastroesophageal reflux disease): -Continue omeprazole (6) Third degree AV block: -S/P pacemaker placement -Stable Total Time Total Time Spent Total Time Spent (In Minutes): 35 Discharge Plan Discharge Items Patient Disposition: Home - Self-Care Reason For Visit: ILLNESS/SOB Discharge Diagnosis: RSV Activity: Resume your previous activity Non-emergency contact: Primary Care Provider Call non-emergency contact if: you have any medication questions Follow-up/Referrals: Garrett Rosales MD [Primary Care Provider] - 08/20/22 11:45 am Diet: Regular Addtl Attending Provider Instructions: Good afternoon Mrs. Reyes, You were seen for an RSV pneumonia. You initially required oxygen which was the main reason we kept you in the hospital. Thankfully, you improved over the course of your hospital stay. We did get some fluid off you with diuretics as well. I will recommend keeping a diary of your daily weights. You are contagious for the first 5 days from symptom onset. Sometimes up to 8 days.. Would recommend wearing a mask when you are with friends/family. Other people should also wear a mask when with you during this time. Please followup with your PCP in 1-2 weeks. It was a pleasure taking care of you Mrs. Reyes. Hope you enjoy this special time of the year with your family. Kindest regards, Skinny Mahesh WEIGHT * Weigh yourself every morning after using the bathroom. * Use the same scale. * Wear the same amount of clothing. * Write your weight down on a chart. * Call your Primary Care doctor if you gain more than 2-3 pounds in 1-2 days. MEDICATIONS * Use this discharge instruction sheet for medication instructions. * Take your medications at the time your doctor ordered. * Do not skip a dose of your medicines. * If you miss a dose of medicine, take it as soon as possible, but DO NOT DOUBLE A DOSE. * Read your medicine information when you get home. * Know all of the side effects of your medicine. If in doubt, ask your pharmacist * Call your Primary Care doctor's office if you have any side effects. * Be sure all of your doctors know what medicine and herbs you take (including cold, flu, and herbal medicine). Take the following with you to your follow-up doctor appointments: * Weight Chart * Medication List * List of questions Do not drink excessive alcohol, beer or wine. Pending Studies at Discharge: No Stand-Alone Forms: My [facility], Smoking Cessation Medications and DC Order Prescriptions: New guaifenesin [Mucinex] 600 mg tablet extended release 12hr 600 mg PO BID PRN (Reason: cough) Qty: 30 0RF Continued (DME) lancets [OneTouch Delica Lancets] 30 gauge misc .ROUTE .MEDSUPPLY Qty: 200 3RF Rx Instructions: Test blood sugar twice a day metoprolol succinate [Toprol XL] 100 mg tablet extended release 24 hr 100 mg PO DAILY Qty: 90 3RF sertraline 25 mg tablet 25 mg PO DAILY Qty: 30 2RF omeprazole 20 mg tablet,delayed release (DR/EC) 20 mg PO Q2D Qty: 90 3RF furosemide [Lasix] 20 mg tablet 20 mg PO Q OTHER DAY Qty: 45 3RF Hold Instructions: urinary incontinence Eliquis 5 mg tablet 5 mg PO BID Qty: 180 3RF diltiazem HCl [Tiazac] 180 mg capsule,extended release 24 hr 180 mg PO QAM Qty: 90 3RF omega-3 fatty acids 1,000 mg capsule 2,000 mg PO QAM glipizide 2.5 mg tablet extended release 24hr 2.5 mg PO QPM Qty: 90 3RF (DME) OneTouch Ultra Test Strip See Rx Instructions .Route Qty: 200 3RF Rx Instructions: Test blood sugars twice a day multivitamin Tablet 1 tab PO DAILY cranberry 500 mg Capsule 500 mg PO QAM Caltrate 600 plus D 600 mg (1,500 mg)-800 unit Tablet,Chewable 1 tab PO BID Prolia 60 mg/mL syringe 60 mg subcut Q6MO cholecalciferol (vitamin D3) [Vitamin D3] 2,000 unit tablet 2,000 unit PO DAILY Label Comments: with largest meal Rx Instructions: take with largest meal of day Acidophilus Capsule 1 cap PO QAM Label Comments: 1 CAP PO QAM; amoxicillin 500 mg Capsule 2,000 mg PO DIRECTED PRN (Reason: PRIOR TO DENTAL PROCEDURES) enalapril maleate 10 mg tablet 10 mg PO QAM Rx Instructions: TAKE 1 TABLET BY MOUTH ONCE DAILY IN THE MORNING No Action atorvastatin 40 mg tablet 40 mg PO Q2D Qty: 45 3RF Discharge Orders: Discharge Order (Routine); Ordered 08/10/22 Ordered By: Skinny Aragon Admission Data Admit Date/Time: 08/07/22 15:06 Attending Provider: Skinny Aragon Admit Provider: Skinny Aragon Primary Care Provider: Garrett Rosales Other Providers: Skinny Aragon Other Interventions: Discharge Summary Assessment (RN) Last Done: 08/10/22 14:54 Coding Level of Care Code D/C DAY MANAGEMENT >30 MINS Diagnoses Hypoxia R09.02 Type 2 diabetes mellitus E11.9 Diabetes mellitus complication status: without complication Diabetes mellitus detention insulin use: without roasterman use Hypertension I10 Hypertension type: essential hypertension Atrial fibrillation with rapid ventricular response I48.91 GERD (gastroesophageal reflux disease) K21.9 Esophagitis presence: without esophagitis Third degree AV block I44.2
[2022-08-10] MEDS ORDERED: POTASSIUM CHLORIDE CRTAB 20 MEQ TABCR PO SCH (14:00)
== END 2022-08-10 15:54 | disposition home or self-care (01) | DRG 291 ==
LOC: ED 11:07 → 2N 15:06
DX: I48.0 Paroxysmal atrial fibrillation; E11.9 Type 2 diabetes mellitus without complications; R09.02 Hypoxemia; K21.9 Gastro-esophageal reflux disease without esophagitis; Z95.0 Presence of cardiac pacemaker; I44.2 Atrioventricular block, complete; Z79.84 Long term (current) use of oral hypoglycemic drugs; I50.33 Acute on chronic diastolic (congestive) heart failure; Z91.040 Latex allergy status; J12.1 Respiratory syncytial virus pneumonia; Z96.653 Presence of artificial knee joint, bilateral; I11.0 Hypertensive heart disease with heart failure; I27.20 Pulmonary hypertension, unspecified; Z88.2 Allergy status to sulfonamides; Z88.1 Allergy status to other antibiotic agents

== ENCOUNTER 2024-10-19 11:13 | Inpatient (IN) ==
[2024-10-19 12:36] LABS: Basophils # (auto) 0.07 K/uL (0.00-0.20); Basophils % (auto) 0.9 %; Eosinophils # (auto) 0.13 K/uL (0.00-0.50); Eosinophils % (auto) 1.6 %; Hematocrit (blood only) 42.3 % (37.0-47.0); Hemoglobin 14.3 g/dl (12.0-16.0); Immature Granulocytes # (auto) 0.03 K/uL (0.01-0.20); Immature Granulocytes % (auto) 0.4 %; Lymphocytes # (auto) 1.44 K/uL (1.20-3.40); Mean Corpuscular Hemoglobin 30.5 pg (25.0-34.0); Mean Corpuscular Hgb Conc 33.8 g/dL (32.0-36.0); Mean Corpuscular Volume 90.2 fL (80.0-100.0); Mean Platelet Volume 9.4 fL (9.4-12.4); Monocytes # (auto) 0.71 K/uL (0.11-0.59); Monocytes % (auto) 8.9 %; Neutrophils # (auto) 5.64 K/uL (1.40-6.50); Neutrophils % (auto) 70.2 %; Platelet Count 242 K/uL (130-400); RDW Coefficient of Variation 13.2 % (11.5-14.5); RDW Standard Deviation 43.2 fL (36.4-46.3); Red Blood Count 4.69 M/uL (4.20-5.40); White Blood Count 8.02 K/ul (4.8-10.8)
[2024-10-19 12:51] LABS: Albumin Globulin Ratio 1.2 (0.9-2); Albumin Level 3.8 gm/dl (3.4-5.0); BUN Creatinine Ratio 26.2 (10-20); Bilirubin,Total 0.7 mg/dl (0.2-1.0); Calcium 9.8 mg/dl (8.6-10.3); Globulin 3.1 gm/dl (2.5-4.0); Potassium 4.2 mmol/L (3.5-5.1); Total Protein 6.9 gm/dl (6.0-8.3)
--- NOTE | 2024-10-19 12:53 | XRay Report ---
XR chest 1V portable CLINICAL HISTORY: Chest pain, nonspecific COMPARISON STUDY: 08/07/2022 FINDINGS: Stable pacemaker. Stable prominent cardiomegaly with mild pulmonary vascular congestion. No effusion, consolidation, or pneumothorax. IMPRESSION: Mild CHF. ACT 112: Negative or not required by law. Electronically signed by: Oskar Seaman M.D. 10/19/2024 12:51 PM
[2024-10-19 12:59] LABS: INR 1.1 (0.9-1.1); Partial Thromboplastin Time 28 Seconds (21-31); Prothrombin Time 12.1 Seconds (9.0-12.0)
[2024-10-19 13:03] LABS: Troponin I High Sensitivity 9.1 pg/ml (0-14)
[2024-10-19 14:03] LABS: Adenovirus PCR Not Detected (NotDetected); Bordetella parapertussis PCR Not Detected (NotDetected); Bordetella pertussis PCR Not Detected (NotDetected); Chlamydia pneumoniae PCR Not Detected (NotDetected); Coronavirus 229E PCR Not Detected (NotDetected); Coronavirus CoV-2 (COVID19)PCR Not Detected (NotDetected); Coronavirus HKU1 PCR Not Detected (NotDetected); Coronavirus NL63 PCR Not Detected (NotDetected); Coronavirus OC43PCR Not Detected (NotDetected); Human Metapneumovirus PCR Not Detected (NotDetected); Influenza A PCR Not Detected (NotDetected); Influenza B PCR Not Detected (NotDetected); Mycoplasma pneumoniae PCR Not Detected (NotDetected); Parainfluenza Virus 1 PCR Not Detected (NotDetected); Parainfluenza Virus 2 PCR Not Detected (NotDetected); Parainfluenza Virus 3 PCR Not Detected (NotDetected); Parainfluenza Virus 4 PCR Not Detected (NotDetected); Respiratory Syncytial VirusPCR Not Detected (NotDetected); Rhinovirus/Enterovirus PCR Not Detected (NotDetected)
--- NOTE | 2024-10-19 14:17 | Emergency Department Note ---
Impression & Plan CHF exacerbation, Acute hypoxic respiratory failure ED Provider Note NAME: JESSICA RUDD AGE: 88 SEX: F : 1935 ARRIVES VIA: Walk-In INFORMANT: Patient, ED PROVIDER(S): Sarah Muse MD CHIEF COMPLAINT: Shortness of breath HPI: This is a an 88-year-old female presents for progressive shortness of breath. Patient states that she has had trouble walking as well as doing her daily activities including dressing herself due to weakness and shortness of breath. She is currently taking medications to help with her fluid status including Lasix. She otherwise notes no nausea vomiting cough or congestion. She does not feel sick with URI type symptoms. ROS: See above HPI for pertinent positives & negatives. A total of 10 systems reviewed and were otherwise negative. PAST MEDICAL HISTORY: See Below PAST SURGICAL HISTORY: See Below FAMILY HISTORY: See Below SOCIAL HISTORY: See Below HOME MEDICATIONS: See Below ALLERGIES: See Below VITALS: See Below PHYSICAL EXAMINATION: General: resting comfortably in no acute distress Head: Normocephalic and atraumatic Eyes: Normal inspection, extraocular muscles intact Ear, nose, throat: Normal external exam Neck: Normal range of motion Respiratory: lungs clear to auscultation bilaterally Cardiovascular: Regular rate/rhythm, no murmur GI: soft, nontender, no guarding or rebound Extremities: nontender, moves all extremities, 2+ pitting edema to bilateral lower extremities Neuro: The patient awake and alert, appropriately conversive, no focal deficits, symmetric faces Skin: Warm, dry, and intact MEDICAL DECISION MAKING: This is an 88-year-old female seen for progressive shortness of breath. Consider upper respiratory infection, pneumonia, CHF, PE -Bloodwork is reviewed showing no significant leukocytosis, anemia, electrolyte or creatinine abnormality -Chest x-ray does reveal signs of mild CHF. -Patient not on oxygen at baseline. She was taken off oxygen evaluation becomes hypoxic about 88 percent. -Will require admission for her likely CHF exacerbation at this time. She has no other infectious etiology at this time including viral infection or pneumonia -Care discussed with Dr. Pablo for admission Differential diagnosis: Pneumonia, CHF, PE Independent History obtained from: Son, son-in-law Diagnostics interpreted by me: ECG: ECG independently interpreted by me with ventricular paced rhythm at a rate of 80 normal QTc, no ST segment elevations consistent with STEMI criteria Cardiac Monitoring: An order was placed for continuous cardiac monitoring. The monitor shows a rate of 76 with sinus rhythm. Past Med/Surg History Problem List (Updated 10/19/24 @ 17:55 by Sarah Muse MD) Acute hypoxic respiratory failure (Acute) CHF exacerbation (Acute) Hypoxia Acute heart failure with preserved ejection fraction (HFpEF) Fatigue Type 2 diabetes mellitus Hypertension Hyperlipidemia GERD (gastroesophageal reflux disease) Third degree AV block Osteoporosis Cervical disc disease Anticoagulant long-term use Actinic keratosis Cardiac pacemaker Urinary incontinence Arthritis Nocturia Sensorineural hearing loss (SNHL) of both ears AAA (abdominal aortic aneurysm) Prolapse of bladder Sciatica CHF (congestive heart failure) Current use of proton pump inhibitor Medical History Low back pain Compression fracture of L1 vertebra with routine healing (~04/2023) RSV (respiratory syncytial virus infection) Lab test negative for COVID-19 virus Hypoxemia SOB (shortness of breath) Dyspnea on exertion Excessive cerumen in both ear canals Cough Congestion of nasal sinus Congestion of nasal sinus Gross hematuria Hematuria Pacemaker Bronchitis Endometrial cancer Osteoarthritis Perforated bowel GERD (gastroesophageal reflux disease) Diabetes mellitus, type 2 Hearing deficit Essential tremor Pacemaker Atrial fibrillation Hypertension Hyperlipidemia Asthmatic bronchitis Surgical History History of permanent cardiac pacemaker placement H/O: hysterectomy Uterine fibroid History of total knee replacement History of esophagogastroduodenoscopy (EGD) History of colonoscopy History of bowel resection History of colostomy reversal History of tooth extraction History of cataract surgery Family History Father Myocardial infarction Hypertension Heart disease Grandfather (Paternal) Myocardial infarction Uncle Myocardial infarction Mother Heart disease Hearing loss Hypertension Allergies Brother Asthma Other No family history of adverse response to anesthesia No family history of bleeding disorder No significant family history Denies family history of Colon cancer Ovarian cancer Prostate cancer Breast cancer Social History Smoking Status: Never smoker Second Hand Exposure: No; Do You Dip or Chew Tobacco: No; Hx Alcohol Use: No Hx Substance Use: No Preferred Language: Icelandic Communication Ability: Effective Visual Impairment: Limited Hearing Ability: Use of Hearing Aid 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 Required: No Beliefs That Will Affect Care: None marital status: / Current Living Situation: Personal Care Facility Current Living Situation Comment: [facility] current occupational status: retired Feels Safe at Home: Yes Safety Concerns: Feels Safe At This Time Childhood Exposure to Second-Hand Smoke: Yes Diet: regular Dental Care, Regularly: Yes Physical Activity Frequency: Daily Seatbelt Use: always Sunscreen Use: No Assistive Devices: Glasses, Hearing Aid - Bilateral and Walker Allergies Allergies Allergy/AdvReac Type Severity Reaction Status Date / Time adhesive Allergy Intermediate RED;BROKEN Verified 10/19/24 16:08 SKIN bee venom protein (honey bee) Allergy Intermediate SWELLING Verified 10/19/24 16:08 latex Allergy Intermediate RAW SKIN Verified 10/19/24 16:08 Sulfa (Sulfonamide Allergy Intermediate Abdominal Verified 10/19/24 16:08 Antibiotics) cramping sulfamethoxazole Allergy Unknown CAN'T Verified 10/19/24 16:08 [From Bactrim] REMEMBER trimethoprim [From Bactrim] Allergy Unknown CAN'T Verified 10/19/24 16:08 REMEMBER alendronate sodium AdvReac Intermediate stomach Verified 10/19/24 16:08 [From Fosamax] pain buspirone AdvReac Intermediate Dizziness Verified 10/19/24 16:08 ciprofloxacin [From Cipro] AdvReac Intermediate LOWER LEG Verified 10/19/24 16:08 SWELLING primidone AdvReac Intermediate ESSENTIAL Verified 10/19/24 16:08 TREMORS pneumococcal vaccine AdvReac Mild DISCOMFORT Verified 10/19/24 16:09 enoxaparin AdvReac Unknown NO LOVENOX Verified 10/19/24 16:[address] BARRIENTOS 11/17/09 [id number] ADM Home Meds Home Medications Medication Instructions Recorded Confirmed calcium 600 mg (as carbonate)-vit 1 tab PO BID 06/23/18 10/19/24 D3 20 mcg (800 unit) chewable tablet (Caltrate plus D) cranberry 500 mg capsule 500 mg PO QAM 06/23/18 10/19/24 multivitamin 1 tab PO DAILY 06/23/18 10/19/24 denosumab 60 mg/mL subcutaneous 60 mg subcut Q6MO 03/30/19 10/19/24 syringe (Prolia) cholecalciferol (vitamin D3) 50 2,000 unit PO DAILY 05/10/19 10/19/24 mcg (2,000 unit) tablet (Vitamin D3) atorvastatin 40 mg tablet 40 mg PO Q OTHER DAY 03/13/24 10/19/24 Lactobacillus acidophilus 1 cap PO QAM 10/19/24 10/19/24 amoxicillin 500 mg capsule 20,000 mg PO DAILY PRN Prophylaxis 10/19/24 10/19/24 Previous Rx's Medication Instructions Recorded blood sugar diagnostic (OneTouch #200 ea 01/12/24 Ultra Test strips) lancets 30 gauge #200 ea 01/12/24 enalapril maleate 10 mg tablet 10 mg PO QAM #90 tabs 02/03/24 furosemide 20 mg tablet (Lasix) 20 mg PO DAILY #90 tabs 02/03/24 metoprolol succinate 100 mg 100 mg PO DAILY #90 tabs 04/27/24 tablet,extended release 24 hr (Toprol XL) glipizide 2.5 mg tablet, extended 2.5 mg PO QPM #90 tabs 05/28/24 release 24 hr apixaban 5 mg tablet (Eliquis) 5 mg PO BID #180 tabs 06/22/24 diltiazem HCl 180 mg capsule,24 180 mg PO QAM #90 caps 08/16/24 hr,extended release (Tiazac) omeprazole 20 mg tablet,delayed 20 mg PO Q2D #90 tabs 09/22/24 release sertraline 25 mg tablet 25 mg PO DAILY #90 tabs 09/27/24 Results & Data (ED) Vital Signs Vital Signs - 24 hr 10/19/24 11:18 10/19/24 12:02 10/19/24 12:02 Temperature 36.4 C L Temperature Source Oral Pulse Rate 97 H Pulse Rate [Apical] Pulse Rhythm Regular Pulse Rhythm [Apical] Pulse Strength Normal Pulse Strength [Apical] Respiratory Rate 20 22 Respiratory Effort / Characteristics SOB on Exertion Respiratory Depth Normal Respiratory Pattern Blood Pressure 159/80 H Blood Pressure [Left Arm] Blood Pressure Mean 106 Blood Pressure Mean [Left Arm] Blood Pressure Position Sitting Blood Pressure Position [Left Arm] Pulse Oximetry 91 93 93 Oxygen Delivery Method Room Air Room Air Room Air Oxygen Flow Rate Sepsis Recent Fever Within 48 Hours No Sepsis New/Unexplained Change in Mental Status N/A Sepsis Action Taken by Nursing No Action Required Oxygen Flow Rate - Titration Pulse Oximetry Post Tiitration 10/19/24 12:47 10/19/24 12:49 10/19/24 12:53 Temperature Temperature Source Pulse Rate 72 85 Pulse Rate [Apical] Pulse Rhythm Regular Pulse Rhythm [Apical] Pulse Strength Pulse Strength [Apical] Respiratory Rate 24 Respiratory Effort / Characteristics Respiratory Depth Respiratory Pattern Blood Pressure Blood Pressure [Left Arm] Blood Pressure Mean Blood Pressure Mean [Left Arm] Blood Pressure Position Blood Pressure Position [Left Arm] Pulse Oximetry 85 L 96 Oxygen Delivery Method Room Air Nasal Cannula Oxygen Flow Rate 2 Sepsis Recent Fever Within 48 Hours Sepsis New/Unexplained Change in Mental Status Sepsis Action Taken by Nursing Oxygen Flow Rate - Titration 2 Pulse Oximetry Post Tiitration 95 10/19/24 13:29 10/19/24 15:00 Temperature Temperature Source Pulse Rate Pulse Rate [Apical] 71 94 H Pulse Rhythm Pulse Rhythm [Apical] Regular Pulse Strength Pulse Strength [Apical] Normal Respiratory Rate 24 22 Respiratory Effort / Characteristics Non-Labored Spontaneous Non-Labored Spontaneous Respiratory Depth Normal Normal Respiratory Pattern Regular Regular Blood Pressure Blood Pressure [Left Arm] 126/79 167/87 H Blood Pressure Mean Blood Pressure Mean [Left Arm] 94 113 Blood Pressure Position Blood Pressure Position [Left Arm] Lying Pulse Oximetry 96 94 Oxygen Delivery Method Nasal Cannula Nasal Cannula Oxygen Flow Rate 2 2 Sepsis Recent Fever Within 48 Hours Sepsis New/Unexplained Change in Mental Status Sepsis Action Taken by Nursing Oxygen Flow Rate - Titration Pulse Oximetry Post Tiitration Laboratory Data 10/19/24 12:11 10/19/24 12:11 Lab Results 10/19/24 10/19/24 10/19/24 Range/Units 12:00 12:11 12:15 WBC 8.02 (4.8-10.8) K/ul RBC 4.69 (4.20-5.40) M/uL Hgb 14.3 (12.0-16.0) g/dl Hct 42.3 (37.0-47.0) % MCV 90.2 (80.0-100.0) fL MCH 30.5 (25.0-34.0) pg MCHC 33.8 (32.0-36.0) g/dL RDW Std Deviation 43.2 (36.4-46.3) fL RDW Coeff of [place] 13.2 (11.5-14.5) % Plt Count 242 (130-400) K/uL MPV 9.4 (9.4-12.4) fL Immature Gran % (Auto) 0.4 % Neut % (Auto) 70.2 % Lymph % (Auto) 18.0 % [place] % (Auto) 8.9 % Eos % (Auto) 1.6 % Baso % (Auto) 0.9 % Neut # (Auto) 5.64 (1.40-6.50) K/uL Lymph # (Auto) 1.44 (1.20-3.40) K/uL [place] # (Auto) 0.71 H (0.11-0.59) K/uL Eos # (Auto) 0.13 (0.00-0.50) K/uL Baso # (Auto) 0.07 (0.00-0.20) K/uL Immature Gran # (Auto) 0.03 (0.01-0.20) K/uL PT 12.1 H (9.0-12.0) Seconds INR 1.1 (0.9-1.1) APTT 28 (21-31) Seconds PTT Ratio 1.0 Sodium 139 (136-145) mmol/L Potassium 4.2 (3.5-5.1) mmol/L Chloride 102 (98-107) mmol/L Carbon Dioxide 32 (21-32) mmol/L Anion Gap 5 (3-11) BUN 16 (6-23) mg/dl Creatinine 0.61 (0.6-1.2) mg/dl Est Cr Clr Drug Dosing 56.0 ml/min eGFR 85.94 BUN/Creatinine Ratio 26.2 H (10-20) Glucose 189 H (70-99(Fasting)) mg/dl Calcium 9.8 (8.6-10.3) mg/dl Total Bilirubin 0.7 (0.2-1.0) mg/dl AST 36 (13-39) U/L ALT 30 (7-52) U/L Alkaline Phosphatase 102 (34-104) U/L Troponin I High Sens 9.1 (0-14) pg/ml Total Protein 6.9 (6.0-8.3) gm/dl Albumin 3.8 (3.4-5.0) gm/dl Globulin 3.1 (2.5-4.0) gm/dl Albumin/Globulin Ratio 1.2 (0.9-2) Urine Color Yellow Urine Appearance Turbid A (Clear) Urine pH 8.5 H (4.5-7.5) Ur Specific [place] 1.014 (1.000-1.030) Urine Protein Negative (Negative) Urine Glucose (UA) Negative (Negative) Urine Ketones Negative (Negative) Urine Blood Negative (Negative) Urine Nitrite Negative (Negative) Urine Bilirubin Negative (Negative) Urine Urobilinogen Negative (Negative) Ur Leukocyte Esterase Trace H (Negative) Urine WBC (Auto) 6-10 H (0-5) /hpf Urine RBC (Auto) 0-2 (0-2) /hpf U Hyaline Cast (Auto) 0-2 (0-2) /lpf U Epithel Cells (Auto) 0-2 (0-2) /hpf Urine Bacteria (Auto) None Seen (None Seen) Adenovirus (PCR) Not Detected (NotDetected) B. pertussis DNA (PCR) Not Detected (NotDetected) B.parapertussis DNA PCR Not Detected (NotDetected) C. pneumoniae DNA (PCR) Not Detected (NotDetected) Coronavirus OC43 (PCR) Not Detected (NotDetected) Coronavirus HKU1 (PCR) Not Detected (NotDetected) Coronavirus 229E (PCR) Not Detected (NotDetected) SARS-CoV-2 (PCR) Not Detected (NotDetected) Coronavirus NL63 (PCR) Not Detected (NotDetected) Human Metapneumovir PCR Not Detected (NotDetected) Influenza Type A (PCR) Not Detected (NotDetected) Influenza Type B (PCR) Not Detected (NotDetected) M. pneumoniae (PCR) Not Detected (NotDetected) Parainfluenza 1 (PCR) Not Detected (NotDetected) Parainfluenza 2 (PCR) Not Detected (NotDetected) Parainfluenza 3 (PCR) Not Detected (NotDetected) Parainfluenza 4 (PCR) Not Detected (NotDetected) RSV (PCR) Not Detected (NotDetected) Entero/Rhino (PCR) Not Detected (NotDetected) Administered Medications Discontinued Medications Furosemide (Furosemide Inj 20 Mg/2 Ml Vial) 20 mg IV ONE ONE Stop: 10/19/24 14:30 Last Admin: 10/19/24 14:53 Dose: 20 mg Documented By: SRL Imaging Data Radiologist's Impression: Chest X-Ray 10/19/24 11:22 XR chest 1V portable CLINICAL HISTORY: Chest pain, nonspecific COMPARISON STUDY: 08/07/2022 FINDINGS: Stable pacemaker. Stable prominent cardiomegaly with mild pulmonary vascular congestion. No effusion, consolidation, or pneumothorax. IMPRESSION: Mild CHF. ACT 112: Negative or not required by law. Electronically signed by: Oskar Seaman M.D. 10/19/2024 12:51 PM Discharge Plan Visit Data Chief Complaint: Shortness of Breath/Dyspnea Stated Complaint: SOB, DOC REF, POSSIBLE A-FIB ED Provider: Sarah Muse Discharge Problem: CHF exacerbation, Acute hypoxic respiratory failure Patient Disposition: Admitted As Inpatient Discharge Instructions Interventions: ED Discharge Assessment Last Done: 10/19/24 16:49
[2024-10-19 14:18] LABS: Appearance Urine Turbid (Clear); Bacteria Urine Automated None Seen (None Seen); Bilirubin Urine Negative (Negative); Blood Urine Negative (Negative); Cast Urine Automated 0-2 /lpf (0-2); Color Urine Yellow; Epithelial Cell Urine Auto 0-2 /hpf (0-2); Glucose Urine UA Negative (Negative); Ketones Urine Negative (Negative); Leukocyte Esterase Urine Trace (Negative); Nitrite Urine Negative (Negative); Protein Urine Negative (Negative); RBC Urine Automated 0-2 /hpf (0-2); Specific Gravity Urine 1.014 (1.000-1.030); Urobilinogen Urine Negative (Negative); pH Urine 8.5 (4.5-7.5)
[2024-10-19] MEDS: FUROSEMIDE INJ 20 MG/2 ML VIAL IV ONE ×2 (14:53→18:03)
--- NOTE | 2024-10-19 15:19 | History & Physical Report ---
Date of Service October 19, 2024 Assessment & Plan (1) Acute heart failure with preserved ejection fraction (HFpEF): (2) Hypoxia: (3) Type 2 diabetes mellitus: Plan Beckie is a pleasant 88-year-old female with PMH of CHF, third-degree AV block, cardiac pacemaker, AAA, arthritis, urinary continence, GERD, HLD, HTN, and T2DM. She presented on 10/19 for worsening SOB/dyspnea and LE edema bilaterally x 4 weeks. She reports she is having SOB both at rest and with exertion. She de nies orthopnea, but does note that she has been getting up in the middle the night every few hours for increased urinary incontinence. Patient lives at [facility]. Although daughter does help to manage medications, she manages her own medicine at home. She reports she forgot to take Lasix yesterday, and did not take it today as she normally takes it at lunchtime. #Acute HFpEF Last echocardiogram on 03/05/2024 revealed LVEF at 60-65%, with severe atrial dilation bilaterally Repeat echocardiogram ordered, pending BNP ordered, pending Daily weights Strict I&O monitoring Hold Lasix 20 mg p.o. daily Lasix 40 mg IV BID17 + K supplementation #Hypoxia Patient dropped to SpO2 85% on RA in the ED with minimal exertion She is not on supplemental oxygen at baseline BioFire negative No leukocytosis; afebrile Suspect this is largely secondary to acute heart failure Titrate supplemental oxygen as needed to maintain SpO2 >94% Continuous pulse oximetry #T2DM Last A1c at 7.5% on 08/24/2024 Hold glipizide Lantus 5 u QAM while inpatient SSI; with target BSG range 110-140mg/dL, CF 45, carb ratio 15 T2DM diet BSG ACHS Adjust regimen as needed #History of atrial fibrillation S/p pacemaker Continue apixaban, metoprolol Disposition: Admit to MedSurg telemetry DNR/DNI Heart healthy, low-sodium, T2DM diet VTE PPx: Eliquis; teds History of Present Illness Chief Complaint: SOB/dyspnea Primary Care Provider: Garrett Rosales MD Beckie is a pleasant 88-year-old female with PMH of CHF, third-degree AV block, cardiac pacemaker, AAA, arthritis, urinary continence, GERD, HLD, HTN, and T2DM. She presented on 10/19 for worsening SOB/dyspnea and LE edema bilaterally x 4 weeks. She reports she is having SOB both at rest and with exertion. She denies orthopnea, but does note that she has been getting up in the middle the night every few hours for increased urinary incontinence. Patient lives at [facility]. Although daughter does help to manage medications, she manages her own medicine at home. She reports she forgot to take Lasix yesterday, and did not take it today as she normally takes it at lunchtime. Patient did take her regular morning medications today including Eliquis for A- fib. No prior history of DVT/PE. No recent change in diet. Patient does watch her salt intake, but reports that she sometimes puts salt on the food and [place] since it is plain. While she denies any recent change in weight, she reports that she normally is in the 160-169 lb range, last week she was around 171lbs. She also endorses worsening LE edema and her legs x 1 week. Patient ambulates with a walker at baseline; no recent falls within the past month. Patient does not use up on oxygen at baseline or CPAP at night. Patient is hypertensive at 167/87; SpO2 94% on 2L NC. ED course: Lasix 20 mg IV ROS: Patient endorses lightheadedness 2 weeks ago (resolved), SOB at rest or with exertion, dry cough, urinary incontinence (baseline), and LE edema. Patient denies fever, chills, night-sweats, headache, chest pain, chest palpitations, pleuritic CP, hemoptysis, abdominal pain, N/V/D, or recent change urinary/bowel habits. Allergies Allergy/AdvReac Type Severity Reaction Status Date / Time adhesive Allergy Intermediate RED;BROKEN Verified 10/19/24 16:08 SKIN bee venom protein (honey bee) Allergy Intermediate SWELLING Verified 10/19/24 16:08 latex Allergy Intermediate RAW SKIN Verified 10/19/24 16:08 Sulfa (Sulfonamide Allergy Intermediate Abdominal Verified 10/19/24 16:08 Antibiotics) cramping sulfamethoxazole Allergy Unknown CAN'T Verified 10/19/24 16:08 [From Bactrim] REMEMBER trimethoprim [From Bactrim] Allergy Unknown CAN'T Verified 10/19/24 16:08 REMEMBER alendronate sodium AdvReac Intermediate stomach Verified 10/19/24 16:08 [From Fosamax] pain buspirone AdvReac Intermediate Dizziness Verified 10/19/24 16:08 ciprofloxacin [From Cipro] AdvReac Intermediate LOWER LEG Verified 10/19/24 16:08 SWELLING primidone AdvReac Intermediate ESSENTIAL Verified 10/19/24 16:08 TREMORS pneumococcal vaccine AdvReac Mild DISCOMFORT Verified 10/19/24 16:09 enoxaparin AdvReac Unknown NO LOVENOX Verified 10/19/24 16:[address] BARRIENTOS 11/17/09 [id number] ADM Home Medications Medication Instructions Recorded Confirmed Type calcium 600 mg (as carbonate)-vit 1 tab PO BID 06/23/18 10/19/24 History D3 20 mcg (800 unit) chewable tablet (Caltrate plus D) cranberry 500 mg capsule 500 mg PO QAM 06/23/18 10/19/24 History multivitamin 1 tab PO DAILY 06/23/18 10/19/24 History denosumab 60 mg/mL subcutaneous 60 mg subcut Q6MO 03/30/19 10/19/24 History syringe (Prolia) cholecalciferol (vitamin D3) 50 2,000 unit PO DAILY 05/10/19 10/19/24 History mcg (2,000 unit) tablet (Vitamin D3) blood sugar diagnostic (OneTouch #200 ea 01/12/24 10/12/24 Rx Ultra Test strips) lancets 30 gauge #200 ea 01/12/24 10/12/24 Rx enalapril maleate 10 mg tablet 10 mg PO QAM #90 tabs 02/03/24 10/19/24 Rx furosemide 20 mg tablet (Lasix) 20 mg PO DAILY #90 tabs 02/03/24 10/19/24 Rx atorvastatin 40 mg tablet 40 mg PO Q OTHER DAY 03/13/24 10/19/24 History metoprolol succinate 100 mg 100 mg PO DAILY #90 tabs 04/27/24 10/19/24 Rx tablet,extended release 24 hr (Toprol XL) glipizide 2.5 mg tablet, extended 2.5 mg PO QPM #90 tabs 05/28/24 10/19/24 Rx release 24 hr apixaban 5 mg tablet (Eliquis) 5 mg PO BID #180 tabs 06/22/24 10/19/24 Rx diltiazem HCl 180 mg capsule,24 180 mg PO QAM #90 caps 08/16/24 10/19/24 Rx hr,extended release (Tiazac) omeprazole 20 mg tablet,delayed 20 mg PO Q2D #90 tabs 09/22/24 10/19/24 Rx release sertraline 25 mg tablet 25 mg PO DAILY #90 tabs 09/27/24 10/19/24 Rx Lactobacillus acidophilus 1 cap PO QAM 10/19/24 10/19/24 History amoxicillin 500 mg capsule 20,000 mg PO DAILY PRN Prophylaxis 10/19/24 10/19/24 History Past Med/Surg History Problem List (Updated 10/19/24 @ 15:59 by Tacho Bosch PA-C) Hypoxia Acute heart failure with preserved ejection fraction (HFpEF) Fatigue Type 2 diabetes mellitus Hypertension Hyperlipidemia GERD (gastroesophageal reflux disease) Third degree AV block Osteoporosis Cervical disc disease Anticoagulant long-term use Actinic keratosis Cardiac pacemaker Urinary incontinence Arthritis Nocturia Sensorineural hearing loss (SNHL) of both ears AAA (abdominal aortic aneurysm) Prolapse of bladder Sciatica CHF (congestive heart failure) Current use of proton pump inhibitor Medical History Low back pain Compression fracture of L1 vertebra with routine healing (~04/2023) RSV (respiratory syncytial virus infection) Lab test negative for COVID-19 virus Hypoxemia SOB (shortness of breath) Dyspnea on exertion Excessive cerumen in both ear canals Cough Congestion of nasal sinus Congestion of nasal sinus Gross hematuria Hematuria Pacemaker Bronchitis Endometrial cancer Osteoarthritis Perforated bowel GERD (gastroesophageal reflux disease) Diabetes mellitus, type 2 Hearing deficit Essential tremor Pacemaker Atrial fibrillation Hypertension Hyperlipidemia Asthmatic bronchitis Surgical History History of permanent cardiac pacemaker placement H/O: hysterectomy Uterine fibroid History of total knee replacement History of esophagogastroduodenoscopy (EGD) History of colonoscopy History of bowel resection History of colostomy reversal History of tooth extraction History of cataract surgery Family History Father Myocardial infarction Hypertension Heart disease Grandfather (Paternal) Myocardial infarction Uncle Myocardial infarction Mother Heart disease Hearing loss Hypertension Allergies Brother Asthma Other No family history of adverse response to anesthesia No family history of bleeding disorder No significant family history Denies family history of Colon cancer Ovarian cancer Prostate cancer Breast cancer Social History Smoking Status: Never smoker Second Hand Exposure: No; Do You Dip or Chew Tobacco: No; Hx Alcohol Use: No Hx Substance Use: No Preferred Language: Czech Communication Ability: Effective Visual Impairment: Limited Hearing Ability: Use of Hearing Aid Crna Required: No Beliefs That Will Affect Care: None marital status: / Current Living Situation: Alone current occupational status: retired Feels Safe at Home: Yes Childhood Exposure to Second-Hand Smoke: Yes Diet: regular Dental Care, Regularly: Yes Physical Activity Frequency: Daily Seatbelt Use: always Sunscreen Use: No Assistive Devices: Glasses, Hearing Aid - Left and Hearing Aid - Right Review of Systems Review of Systems: See HPI above Physical Exam Physical Exam: General: no acute distress; pleasant affect; non-toxic appearing; frail appearing; cooperative; SpO2 94% on 2L NC HEENT: normocephalic, atraumatic; no scleral icterus; PERRLA; vision intact; hard of hearing Neck: supple; no lymphadenopathy; positive JVP; trachea midline Skin: warm, dry without signs of tenting; no cyanosis; no rashes, bruising, lesions, or erythema noted CV: chest wall NTP; RRR; S1/S2 normal; no murmurs/rubs/gallops; pulses intact and symmetric at radial, DP, and PT Lungs: no acute respiratory distress; symmetrical chest wall expansion; clear breath sounds across all lung horner w/o adventitious sounds; no wheezing ABD: Soft, NTP; BS present; no rebound/guarding; no distention MSK: no tics or fasciculations; +2 pitting edema in the lower EXTR bilaterally, mild erythema bilaterally Neuro: A&Ox3; normal mood and affect; fluent speech; no focal deficits; patient reports sensation is intact in ventricular and lower extremities bilaterally Results & Data Results & Data Vital Signs (Past 12 Hours) Vital Signs Temp Pulse Pulse Resp BP BP Pulse Ox 10/19/24 13:29 71 24 126/79 96 10/19/24 12:53 85 10/19/24 12:49 72 24 96 10/19/24 12:47 85 L 10/19/24 12:02 22 93 10/19/24 12:02 93 10/19/24 11:18 36.4 C L 97 H 20 159/80 H 91 O2 Del Method O2 Flow Rate 10/19/24 13:29 Nasal Cannula 2 10/19/24 12:53 10/19/24 12:49 Nasal Cannula 2 10/19/24 12:47 Room Air 10/19/24 12:02 Room Air 10/19/24 12:02 Room Air 10/19/24 11:18 Room Air Laboratory Results Abnormal lab results 10/19/24 10/19/24 Range/Units 12:11 12:15 [facility] # (Auto) 0.71 H (0.11-0.59) K/uL PT 12.1 H (9.0-12.0) Seconds BUN/Creatinine Ratio 26.2 H (10-20) Glucose 189 H (70-99(Fasting)) mg/dl Urine Appearance Turbid A (Clear) Urine pH 8.5 H (4.5-7.5) Ur Leukocyte Esterase Trace H (Negative) Urine WBC (Auto) 6-10 H (0-5) /hpf Diagnostic Findings Chest X-Ray 10/19/24 11:22 XR chest 1V portable CLINICAL HISTORY: Chest pain, nonspecific COMPARISON STUDY: 08/07/2022 FINDINGS: Stable pacemaker. Stable prominent cardiomegaly with mild pulmonary vascular congestion. No effusion, consolidation, or pneumothorax. IMPRESSION: Mild CHF. ACT 112: Negative or not required by law. Electronically signed by: Oskar Seaman M.D. 10/19/2024 12:51 PM ECG Additional Comments: ECG revealed ventricular paced rhythm at 80 bpm; QTc 482 Code Status & VTE Plan Code Status DNR/DNI VTE Prophylaxis Plan VTE Prophylaxis will be ordered: Yes Supervising Physician Co-Signing Physician Notes I have personally seen, evaluated and examined the patient. I have also personally discussed the management of the patient with the resident physician/ALL and I agree with the exam findings documented in the history and physical examination and the documented assessment and plan unless otherwise stated below. Brief Exam: In general this is a pleasant 88-year-old female is accompanied by her son at the time of my examination. She interacts appropriate and pleasantly. She is comfortable 1 to 2 L of oxygen nasal cannula currently. HEENT: Normocephalic atraumatic. Heart: Fairly regular at time my exam. Faint 2 out of 6 systolic ejection murmur best heard at the left sternal border. Lungs: Diminished with fine cardiac growth. Extremities: 2+ pitting edema bilaterally. Neurologically: Alert and oriented x 3. No focal deficit on exam. Assessment/plan: As described above. Acute congestive heart failure EF was normal in February 2024. Will repeat an echocardiogram. IV diuresis the patient. Continue her Eliquis. Please refer to orders for further planning. PG Care Time/CCT Total # of Minutes Spent Total Time Spent with Patient: Total time spent is greater than 50% in coordination of care (as documented) at patient's floor/unit and/or counseling patient: C[place] [address] INT INP/OBS CARE 3/75MIN Patient Type Established Medical Decision Making High Complexity Diagnoses Acute heart failure with preserved ejection fraction (HFpEF) I50.31 Hypoxia R09.02 Type 2 diabetes mellitus without complication, without long-term current use of insulin E11.9 Diabetes mellitus complication status: without complication Diabetes mellitus retirement insulin use: without gas inspector use (3) Type 2 diabetes mellitus Diabetes mellitus complication status: without complication Diabetes mellitus retirement insulin use: without retirement use Qualified Code(s): E11.9 - Type 2 diabetes mellitus without complications
--- NOTE | 2024-10-19 16:18 | Electrocardiogram Report ---
Test Reason : Blood Pressure : */* mmHG Vent. Rate : 80 BPM Atrial Rate : 78 BPM P-R Int : * ms QRS Dur : 146 ms QT Int : 418 ms P-R-T Axes : * 256 77 degrees QTcB Int : 482 ms Ventricular-paced rhythm Abnormal ECG When compared with ECG of 13-Mar-2024 20:18, Vent. rate has decreased by 15 bpm Confirmed by Garrett Sarkar ([id number]) on 10/19/2024 4:17:37 PM Referred By: Confirmed By: Garrett Sarkar
[2024-10-19] MEDS ORDERED: GLUCOSE 40% GEL 15 GM TUBE PO PRN (17:27)
[2024-10-19] MEDS ORDERED: GLUCAGON FOR INJ 1 MG VIAL SQ PRN (17:27)
[2024-10-19] MEDS ORDERED: ACETAMINOPHEN 325 MG TAB PO PRN (17:27)
[2024-10-19] MEDS ORDERED: DEXTROSE 50% 50 ML SYRINGE IV PRN (17:27)
[2024-10-19] MEDS ORDERED: CARBOHYDRATES FOR HYPOGLYCEMIA PO PRN (17:27)
[2024-10-19] MEDS ORDERED: GLUCOSE 10 TAB/TUBE PO PRN (17:27)
[2024-10-19] MEDS: INSULIN ASPART PER UNIT CHARGE SC SCH (18:35)
--- OUTSIDE RECORDS SUMMARY | 2024-10-19 19:12 | External Medical Summary | Summary of Care ---
Author Name Unknown Organization [facility] Address [address] [place] [address] Phone [phone] Care Team Providers Care Budget And Policy Analyst Name Role Phone ProGarrett MD Primary Care Provider [phone] Reason for Visit * Reason Onset Date Comments Order Request 09/20/2024 prolia Encounter Details Date Type Department Care Team (Late st Contact Info) Description 09/20/2024 Telephone Rheumatology [facility] [address] [place] [address] Milagros Kong CRNP [address] [place] [address] Order Request (prolia) Allergies Active Allergy Reactions Criticality Noted Date Comments Alendronate Abdominal pain,Nausea/vomiting 12/14/2015 Headache Bactrim 01/21/2012 Bowel and bladder cramps with taking Buspirone Low 08/07/2022 Other Reaction(s): Dizziness Ciprofloxacin Low 08/07/2022 Other Reaction(s): LOWER LEG SWELLING Enoxaparin 08/07/2022 Other Reaction(s): NO LOVENOX PER DR BARRIENTOS 11/17/09 [id number] ADM Latex Low 08/07/2022 Other Reaction(s): RAW SKIN Pneumococcal Vaccine Other (Please comment) 07/30/2012 Localized redness and sore Primidone Other (Please comment) 06/10/2014 Extreme fatigue Sulfamethoxazole 08/07/2022 Other Reaction(s): CAN'T REMEMBER Trimethoprim 08/07/2022 Other Reaction(s): CAN'T REMEMBER documented as of this encounter (statuses as of 10/14/2024) Medications MULTIVITAMIN PO TABS 1 tablet po daily Active CALTRATE 600 + D 600-125 MG-IU PO TABS 1 capsule bid Active AMOXICILLIN 500 MG PO CAPSIndications: Other specified cardiac dysrhythmias(427 .89) TAKE 4 CAPSULES BY MOUTH 1 HOUR BEFORE PROCEDURE. 4 2 7 Active CRANBERRY 405 MG PO CAPS one daily 9 Active ACIDOPHILUS 100 MG PO CAPS one daily 9 Active OMEGA 3 1000 MG PO CAPS two tablets in the morning 9 Active TOPROL XL 100 MG PO [id number]: Atrial fibrillation (HCC) 1 daily at bed time-for blood pressure 90 Tab 3 1 Active glipiZIDE ER 2.5 MG Oral Tablet Extended Release 24 HourIndications: Type 2 diabetes, HbA1c goal < 7% (HCC) Take 1 Tablet by mouth in the morning. 30 minutes before supper. 30 Tab 11 5 Active ONE TOUCH ULTRA TEST STRP 5 Active Cholecalciferol (VITAMIN D) 2000 UNITS Capsule 1 daily Active omeprazole (PRILOSEC) 20 MG CPDRIndications: Abdominal pain, epigastric Take 1 Cap by mouth daily. For acid reflux 90 Cap 3 6 Active enalapril (VASOTEC) 10 MG Tablet 1 TABLET DAILY- for heart/blood pressure 90 Tab 3 6 Active atorvaSTATin (LIPITOR) 40 MG TabletIndication s:Dyslipidemia, goal LDL below 100 one pill every other day- for cholesterol 50 Tab 3 6 Active ONETOUCH DELICA LANCETS 33G MISC As directed 6 Active denosumab (PROLIA) 60 MG/ML injection Inject 60 mg under the skin once. Active Eliquis 5 MG Oral Tablet Take 1 Tablet by mouth in the morning. 0 Active dilTIAZem HCl ER Beads 180 MG Oral Capsule Extended Release 24 Hour 1 daily 1 Active Furosemide 20 MG Oral Tablet (Lasix) Take 1 Tablet by mouth every other day. 1 every other day 1 Active Fluorouracil 5 % External Cream Start: 12/13/21 15:59:00 EDT, 1 appl, topical, bid, Disp# 40 g, Refills: 0, to forehead, nose, cheeks and temples, Pharmacy: [facility] 2 Active Fluorouracil 5 % External Cream (Efudex) APPLY TOPICALLY TO FOREHEAD, NOSE, CHEEKS AND TEMPLES TWICE DAILY 2 Active Lidocaine 5 % External Patch (Lidoderm) daily. 3 Active Sertraline HCl 25 MG Oral Tablet (Zoloft) Take 1 Tablet by mouth in the morning. 4 Active Hospital, Clinic, or Other Facility Administered Medication Ordered Dose Route Frequency Start Date End Date Status Denosumab (Prolia) subcut inj 60 mgIndications:Senile osteoporosis 60 mg SC ONCE 09/24/2024 09/24/2024 Ended documented as of this encounter (statuses as of 10/14/2024) Active Problems Problem Noted Date Diagnosed Date Benign essential tremor 04/20/2014 Type 2 diabetes, HbA1c goal < 7% 02/24/2013 Dyslipidemia, goal LDL below 100 11/09/2009 Atrial fibrillation 11/24/2007 Anticoagulation management encounter 11/24/2007 intermediate manager current use of anticoagulant therapy 0 11/24/2007 Overview (05/26/2017): ICD-10 update of inactive term Osteoporosis 10/25/2004 CARDIAC DYSRHYTHMIAS NEC-CHB 01/20/2003 FAM HX-ISCHEM HEART DIS HTN, goal below 140/90 TRANSIENT GLOBAL AMNESIA-single episode-1981 C 6-7 CERVICAL OSTEOARTRITIS DIVERTICULOSIS OF COLON documented as of this encounter (statuses as of 10/14/2024) Resolved Problems Problem Noted Date Diagnosed Date Resolved Date Type 1 diabetes, HbA1c goal < 7% 02/24/2013 02/24/2013 Type 1 diabetes mellitus wit h hemoglobin A1c goal of less than 7.0% 12/17/2012 02/24/2013 Overview (12/25/2015): ICD-10 update of inactive term Dyslipidemia, goal to be determined 08/14/2009 11/09/2009 Overview (08/14/2009): Per Lipid Taxonomy. ADVANCE DIRECTIVE INFORMATION 04/30/2008 06/28/2024 Overview (04/30/2008): Yes, Patient instructed to provide copy of advance directive for provider to review and to be scanned into Electronic Medical Record Dyslipidemia, goal to be determined 11/13/2004 07/19/2009 Overview (07/19/2009): Per Lipid Taxonomy PURE HYPERCHOLESTEROLEM 07/26 Overview (08/14/2009): Per Lipid Taxonomy. documented as of this encounter (statuses as of 10/14/2024) Immunizations Name Administration Dates Next Due COVID-19 mRNA, LNP-s, No Pre serve, 2-Dose Series (Pfizer) 06/19/2021,11/11/2020,10/21/2020 Pneumococcal Polysaccharide PPV23 (Pneumovax) 07/23/2012,06/10/2006 Seasonal Influenza Vac., MDV , IM, 0.5 mL (Fluzone) 05/31/2016,06/10/2014,06/10/2013,05/18,05/30/2011,05/14/2010,05/12/2009 ,05/17/2008,05/25/2007,06/10/2006 Seasonal Influenza, Quadriva lent, No Preserve, IM 05/25/2019,06/19/2015 TD, Preservative Free 08/28/2008 Varicella Zoster Vaccine (Adult) 05/18/2007 Zoster Vaccine Recombinant (Shingrix) 09/09/2019 ,06/22/2019 documented as of this encounter Social History Tobacco Use Types Packs/Day Years Used Date Smoking Tobacco: Never Smokeless Tobacco: Never Alcohol Use Standard Drinks/Week Comments No 0 (1 standard drink = 0.6 oz pur e alcohol) Comments No Sex and Gender Information Value Date Recorded Sex Assigned at Not on file Legal Sex Female 5:16 AM EST Gender Identity Not on file Sexual Orientation Not on file Occupation Industry Job Start Date Job End Date Not on file Not on file Not on file Not on file documented as of this encounter Miscellaneous Notes * Telephone Encounter - Milagros Kong CRNP - 09/21/2024 11:16 AM EST Reviewed and signed. Does the patient have an updated Vit D since 09/08/2023? If not, it's ok to give prolia, but please advise patient to get updated Vit D at her earliest convenience. * Telephone Encounter - Samantha Canchola LPN - 09/20/2024 2:26 PM EST Chart reviewed and labs noted to be within normal limits. Patient has been seen within the last 12 months by a Rheumatology provider. Prolia authorization approved and updated in referral. Last injection has been > 6 months and 1 day. CAM orders pended for signature. Thank you! documented in this encounter Plan of Treatment Upcoming Encounters Date Type Department Care Team (Late st Contact Info) Description 03/29/2025 2:00 PM EDT Office Visit Rheumatology [facility] [address] [place] [id number] [facility] [address] [facility] [address] Scheduled Orders Name Type Priority Associated Diagnoses Orde r Schedule 25-HYDROXY VITAMIN D Lab Routine Senile osteoporosis Expected: 09/21/2024, Expires: 09/21/2025 Health Maintenance Due Date Last Done Comments DTap/Tdap Vaccines (1 - Tdap) 08/29/2008 08/28/2008, 12/18/1999, 12/18/1999 Depression Screening 06/23/2016 06/23/2015 Diabetic Eye Exam 10/30/2016 10/31/2015, , 10/20/2013, Additional history exists Albumin/Creatinine Ratio 11/20/2016 016, 12/09/2013, 02/24/2013 Diabetic Foot Exam 05/31/2017 05/31/2016, 0 12/16/2014, 10/23/2014 (Done elsewhere), Additional history exists COVID-19 Vaccine ( season) 2024 06/09/2023, 06/19/2021, 11/11/2020, Additional history exists Influenza Vaccine (FLU shot) (#1) 2024 06/05/2019, 05/25/2019, 05/31/2016, Additional history exists HbA1c 09/17/2024 03/17/2024, 11/24, 05/14/2016, Additional history exists DXA Scan 05/26/2025 05/26/2023, 04/26, 02/22/2019, Additional history exists Zoster Vaccines Completed 09/09/2019, 05/26, 11/08/2009, Additional history exists VITAMIN D LEVEL ONCE IN A LIFETIME-USE SMARTSET# 31059 Completed 09/08/2023, 05/15/2015, 05/12/2009, Additional history exists HPV (Gardasil) Vaccine Aged Out No lo nger eligible based on patient's age to complete this topic Hepatitis B Vaccine Aged Out No longe r eligible based on patient's age to complete this topic MENINGOCOCCAL (MENACTRA/MENVEO) Aged Out No longer eligible based on patient's age to complete this topic Meningitis B Vaccine (Bexsero/Trumemba) Aged Out No longer eligible based on patient's age to complete this topic documented as of this encounter Medical Devices Not on filedocumented as of this encounter Visit Diagnoses Diagnosis Senile osteoporosis- Primary documented in this encounter Care Teams Budget And Policy Analyst Relationship Specialty Start Date End Date Pro, Garrtet Felix MD [address] [place] [address] PCP - General Internal Medicine 12/26/16 documented as of this encounter
[2024-10-19] MEDS: APIXABAN 5 MG TABLET PO SCH (20:50)
--- NOTE | 2024-10-20 08:09 | Hospitalist Progress Note ---
Date of Service October 20, 2024 Assessment & Plan (1) Acute heart failure with preserved ejection fraction (HFpEF): (2) Hypoxia: (3) Type 2 diabetes mellitus: Plan Beckie is a pleasant 88-year-old female with PMH of CHF, third-degree AV block, cardiac pacemaker, AAA, arthritis, urinary continence, GERD, HLD, HTN, and T2DM. She presented on 10/19 for worsening SOB/dyspnea and LE edema bilaterally x 4 weeks. She reports she is having SOB both at rest and with exertion. She de nies orthopnea, but does note that she has been getting up in the middle the night every few hours for increased urinary incontinence. Patient lives at [facility]. Although daughter does help to manage medications, she manages her own medicine at home. She reports she forgot to take Lasix yesterday, and did not take it today as she normally takes it at lunchtime. #Acute HFpEF Last echocardiogram on 03/05/2024 revealed LVEF at 60-65%, with severe atrial dilation bilaterally Repeat echocardiogram normal ejection fraction no regional wall motion abnormalities concentric LVH valvular issues moderate pulm hypertension around 59 mmHg Continue Lasix 40 mg daily consider dietary indiscretion as possible etiology #Hypoxia Secondary exacerbation of heart failure preserved ejection fraction improved with diuresis #T2DM Last A1c at 7.5% on 08/24/2024 Hold glipizide Lantus 5 u QAM while inpatient SSI; with target BSG range 110-140mg/dL, CF 45, carb ratio 15 #History of atrial fibrillation S/p pacemaker Continue apixaban, metoprolol DNR/DNI Heart healthy, low-sodium, T2DM diet VTE PPx: Eliquis; brandon Anticipate return to [facility]-longterm likely on or to September Admission and Anticipated Discharge Date Admission Date: October 19, 2024 Subjective pt is improved, she notes that they have been served delicious soup that maybe the etiology of her heart failure. she has no chest pain and improved shortness of breath. Ambulating with PT, wants to return to the [facility] Physical Exam Physical Exam: Awake and alert lungs are mostly clear, rales cardiac is regular, systolic murmur ext with trace edema Results & Data Results & Data Vital Signs (Past 12 Hours) Vital Signs Temp Pulse Pulse Resp BP Pulse Ox O2 Del Method 10/20/24 07:52 97.7 F 70 20 157/73 H 93 Room Air 10/20/24 07:32 70 10/20/24 03:47 97.7 F 82 18 119/66 95 Nasal Cannula 10/19/24 22:58 97.5 F L 74 20 131/75 94 Room Air 10/19/24 21:44 70 O2 Flow Rate 10/20/24 07:52 10/20/24 07:32 10/20/24 03:47 2 10/19/24 22:58 10/19/24 21:44 Laboratory Results poc glucose reviewed PG Care Time/CCT Total # of Minutes Spent Total Time Spent with Patient: Total time spent is greater than 50% in coordination of care (as documented) at patient's floor/unit and/or counseling patient: Coding Level of Care Code 40358 SUB INP/OBS CARE 350MIN Diagnoses Acute heart failure with preserved ejection fraction (HFpEF) I50.31 Hypoxia R09.02 Type 2 diabetes mellitus without complication, without long-term current use of insulin E11.9 Diabetes mellitus complication status: without complication Diabetes mellitus usp insulin use: without termite exterminator helper use (3) Type 2 diabetes mellitus Diabetes mellitus complication status: without complication Diabetes mellitus termite exterminator helper insulin use: without usp use Qualified Code(s): E11.9 - Type 2 diabetes mellitus without complications
[2024-10-20] MEDS: METOPROLOL SUCC 50MG EXT REL TAB PO SCH (08:43)
[2024-10-20] MEDS: ATORVASTATIN 40 MG TAB PO SCH (08:43)
[2024-10-20] MEDS: dilTIAZem HCL 180 MG CAPCR PO SCH (08:43)
[2024-10-20] MEDS: ENALAPRIL MALEATE 10 MG TAB PO SCH (08:44)
[2024-10-20] MEDS: SERTRALINE HCL 50 MG TABLET PO SCH (08:44)
[2024-10-20] MEDS: POTASSIUM CHLORIDE CRTAB 20 MEQ TABCR PO SCH (08:46)
[2024-10-20] MEDS: FUROSEMIDE 40 MG/4 ML VIAL IV SCH (08:46)
[2024-10-20] MEDS: LANTUS PER UNIT CHARGE SQ SCH (09:24)
--- NOTE | 2024-10-20 14:02 | XCELERA ---
[id number] \\[email or web address]\[id number]
[2024-10-21 07:29] LABS: Calcium 8.5 mg/dl (8.6-10.3); Creatinine Clr Calc Pharmacy 55.6 ml/min; Magnesium 1.6 mg/dl (1.7-2.4); Potassium 3.8 mmol/L (3.5-5.1)
[2024-10-21] MEDS: FUROSEMIDE 40 MG/4 ML VIAL IV SCH (08:20)
[2024-10-21] MEDS: MAGNESIUM SULFATE / D5W 1 GM/100 ML BAG IV SCH (11:07)
--- NOTE | 2024-10-21 13:57 | Hospitalist Progress Note ---
Date of Service October 21, 2024 Assessment & Plan (1) Acute heart failure with preserved ejection fraction (HFpEF): (2) Hypoxia: (3) Type 2 diabetes mellitus: Plan Beckie is a pleasant 88-year-old female with PMH of CHF, third-degree AV block, cardiac pacemaker, AAA, arthritis, urinary continence, GERD, HLD, HTN, and T2DM. She presented on 10/19 for worsening SOB/dyspnea and LE edema bilaterally x 4 weeks. She reports she is having SOB both at rest and with exertion. She de nies orthopnea, but does note that she has been getting up in the middle the night every few hours for increased urinary incontinence. Patient lives at [facility]. Although daughter does help to manage medications, she manages her own medicine at home. She reports she forgot to take Lasix yesterday, and did not take it today as she normally takes it at lunchtime. #Acute HFpEF Last echocardiogram 10/20/24 revealed LVEF at >70%, with severe atrial dilation bilaterally, pulm HTN Continue Lasix 40 mg daily Monitor I/O, daily weight Patient is around 2l in the negative fluid balance in the last 24 hrs #Hypoxia Secondary exacerbation of heart failure preserved ejection fraction improved with diuresis #T2DM Last A1c at 7.5% on 08/24/2024 Hold glipizide Lantus 5 u QAM while inpatient SSI; with target BSG range 110-140mg/dL, CF 45, carb ratio 15 #History of atrial fibrillation S/p pacemaker Continue apixaban, metoprolol DNR/DNI Heart healthy, low-sodium, T2DM diet VTE PPx: Eliquis; victor hugos Anticipate return to [facility] personal-long term likely in the next 24-48 hrs Admission and Anticipated Discharge Date Admission Date: October 19, 2024 Subjective patient seen and examined, sitting up in the chair, says SOB is better Review of Systems Review of Systems: All systems reviewed are negative, apart from the ones contained in the history. Physical Exam Physical Exam: The patient is awake, alert and oriented 3, well developed and well nourished, normocephalic and atraumatic, lying in bed and in no acute distress. HEENT--PERRL, EOMI, mucous membranes and oropharynx mildly dry Neck--supple. No JVD. No bruits. Thyroid normal, trachea midline, no adenopathy. Heart--normal S1 and S2. No murmurs, rubs or gallops. Lungs--clear bilaterally, no respiratory distress, no accessory muscle use. Abdomen--normal bowel sounds and soft. Extremities--no cyanosis or clubbing.leg edema Dermatologic--normal skin turgor, normal color, no abnormal lymph nodes, no r jeronimo. Neurologic--cranial nerves II through XII grossly intact. Rheumatologic--normal range of motion. Psychiatric--normal affect. Results & Data Results & Data Vital Signs (Past 12 Hours) Vital Signs Temp Pulse Pulse Resp BP BP Pulse Ox 10/21/24 11:38 97.5 F L 73 18 141/81 H 96 10/21/24 09:00 10/21/24 08:00 97.5 F L 79 18 138/86 93 10/21/24 07:00 81 10/21/24 03:38 98.2 F 78 20 154/88 H 92 O2 Del Method O2 Flow Rate 10/21/24 11:38 Nasal Cannula 2 10/21/24 09:00 Nasal Cannula 2 10/21/24 08:00 Nasal Cannula 2 10/21/24 07:00 10/21/24 03:38 Nasal Cannula 2 PG Care Time/CCT Total # of Minutes Spent Total Time Spent with Patient: Total time spent is greater than 50% in coordination of care (as documented) at patient's floor/unit and/or counseling patient: Coding Level of Care Code 54889 SUB INP/OBS CARE 2/35MIN Diagnoses Acute heart failure with preserved ejection fraction (HFpEF) I50.31 Hypoxia R09.02 Type 2 diabetes mellitus without complication, without long-term current use of insulin E11.9 Diabetes mellitus termite exterminator insulin use: without termite exterminator use Diabetes mellitus complication status: without complication Time Spent (min) 35 (3) Type 2 diabetes mellitus Diabetes mellitus termite exterminator insulin use: without termite exterminator use Diabetes mellitus complication status: without complication Qualified Code(s): E11.9 - Type 2 diabetes mellitus without complications
[2024-10-22 04:11] VITALS: RESP 18
[2024-10-22 06:30] LABS: Hemoglobin 13.9 g/dl (12.0-16.0); Mean Corpuscular Hgb Conc 33.9 g/dL (32.0-36.0); Mean Corpuscular Volume 88.4 fL (80.0-100.0); Mean Platelet Volume 9.1 fL (9.4-12.4); Platelet Count 223 K/uL (130-400); RDW Coefficient of Variation 13.2 % (11.5-14.5); RDW Standard Deviation 42.4 fL (36.4-46.3); Red Blood Count 4.64 M/uL (4.20-5.40); White Blood Count 8.81 K/ul (4.8-10.8)
[2024-10-22 06:54] LABS: BUN Creatinine Ratio 24.6 (10-20); Calcium 7.7 mg/dl (8.6-10.3); Creatinine Clr Calc Pharmacy 96.1 ml/min; Magnesium 1.9 mg/dl (1.7-2.4); Potassium 3.9 mmol/L (3.5-5.1)
[2024-10-22 09:21] VITALS: O2SAT 92
[2024-10-22 11:45] VITALS: PULSE 78; TEMP 97.5
[2024-10-22 12:27] VITALS: BP 145/86
--- NOTE | 2024-10-22 12:30 | Discharge Summary ---
Date of Service October 22, 2024 Admission HPI Per Admitting Provider Beckie is a pleasant 88-year-old female with PMH of CHF, third-degree AV block, cardiac pacemaker, AAA, arthritis, urinary continence, GERD, HLD, HTN, and T2DM. She presented on 10/19 for worsening SOB/dyspnea and LE edema bilaterally x 4 weeks. She reports she is having SOB both at rest and with exertion. She denies orthopnea, but does note that she has been getting up in the middle the night every few hours for increased urinary incontinence. Patient lives at [facility]. Although daughter does help to manage medications, she manages her own medicine at home. She reports she forgot to take Lasix yesterday, and did not take it today as she normally takes it at lunchtime. Patient did take her regular morning medications today including Eliquis for A- fib. No prior history of DVT/PE. No recent change in diet. Patient does watch her salt intake, but reports that she sometimes puts salt on the food and [place] since it is plain. While she denies any recent change in weight, she reports that she normally is in the 160-169 lb range, last week she was around 171lbs. She also endorses worsening LE edema and her legs x 1 week. Patient ambulates with a walker at baseline; no recent falls within the past month. Patient does not use up on oxygen at baseline or CPAP at night. Patient is hypertensive at 167/87; SpO2 94% on 2L NC. ED course: Lasix 20 mg IV ROS: Patient endorses lightheadedness 2 weeks ago (resolved), SOB at rest or with exertion, dry cough, urinary incontinence (baseline), and LE edema. Patient denies fever, chills, night-sweats, headache, chest pain, chest palp itations, pleuritic CP, hemoptysis, abdominal pain, N/V/D, or recent change urinary/bowel habits. Admission Exam (Per Admitting) Constitutional The patient is awake, alert and oriented 3, well developed and well nourished, normocephalic and atraumatic, lying in bed and in no acute distress. HEENT--PERRL, EOMI, mucous membranes and oropharynx mildly dry Neck--supple. No JVD. No bruits. Thyroid normal, trachea midline, no adenopathy. Heart--normal S1 and S2. No murmurs, rubs or gallops. Lungs--clear bilaterally, no respiratory distress, no accessory muscle use. Abdomen--normal bowel sounds and soft. Extremities--no cyanosis or clubbing. No edema. Dermatologic--normal skin turgor, normal color, no abnormal lymph nodes, no rash. Neurologic--cranial nerves II through XII grossly intact. Rheumatologic--normal range of motion. Psychiatric--normal affect. Hospital Course (1) Acute heart failure with preserved ejection fraction (HFpEF): (2) Hypoxia: (3) Type 2 diabetes mellitus: Arnav Butts is a pleasant 88-year-old female with PMH of CHF, third-degree AV block, cardiac pacemaker, AAA, arthritis, urinary continence, GERD, HLD, HTN, and T2DM. She presented on 10/19 for worsening SOB/dyspnea and LE edema bilaterally x 4 weeks. She reports she is having SOB both at rest and with exertion. She denies orthopnea, but does note that she has been getting up in the middle the night every few hours for increased urinary incontinence. Patient lives at [facility]. Although daughter does help to manage medications, she manages her own medicine at home. She reports she forgot to take Lasix yesterday, and did not take it today as she normally takes it at lunchtime. #Acute HFpEF Last echocardiogram 10/20/24 revealed LVEF at >70%, with severe atrial dilation bilaterally, pulm HTN Continue Lasix 40 mg daily Monitor I/O, daily weight Patient is around 2l in the negative fluid balance in the last 24 hrs She will need outpatient cardiology follow up They may need to adjust her home dose of lasix (she takes 20mg daily) #Hypoxia Secondary exacerbation of heart failure preserved ejection fraction improved with diuresis Resolved Now on room air #T2DM Last A1c at 7.5% on 08/24/2024 Hold glipizide Lantus 5 u QAM while inpatient SSI; with target BSG range 110-140mg/dL, CF 45, carb ratio 15 #History of atrial fibrillation S/p pacemaker Continue apixaban, metoprolol DNR/DNI Heart healthy, low-sodium, T2DM diet VTE PPx: Eliquis; teds Anticipate return to [facility] Coding Level of Care Code 64486 INP/OBS DISCH >30 MIN Diagnoses Acute heart failure with preserved ejection fraction (HFpEF) I50.31 Hypoxia R09.02 Type 2 diabetes mellitus without complication, without long-term current use of insulin E11.9 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
== END 2024-10-22 14:20 | disposition home or self-care (01) | DRG 291 ==
LOC: ED 11:13 → SUATTDRO 15:50 → 2N 15:50

== ENCOUNTER 2025-05-16 12:08 | Inpatient (IN) ==
[2025-05-16 12:31] LABS: Hematocrit (blood only) 41.9 % (37.0-47.0); Hemoglobin 13.4 g/dl (12.0-16.0); Immature Granulocytes # (auto) 0.03 K/uL (0.01-0.20); Immature Granulocytes % (auto) 0.4 %; Mean Corpuscular Hemoglobin 29.1 pg (25.0-34.0); Mean Corpuscular Volume 90.9 fL (80.0-100.0); Platelet Count 241 K/uL (130-400); RDW Standard Deviation 45.7 fL (36.4-46.3); Red Blood Count 4.61 M/uL (4.20-5.40); White Blood Count 8.13 K/ul (4.8-10.8)
--- NOTE | 2025-05-16 12:36 | XRay Report ---
XR chest 1V portable CLINICAL HISTORY: Dyspnea COMPARISON STUDY: 10/19/2024 FINDINGS: Stable pacemaker. Stable cardiomegaly with increased pulmonary vascular congestion. There i s interval patchy opacity at the right lung base. There is mild blunting of the costophrenic angles. No pneumothorax. IMPRESSION: 1. CHF with possible small pleural effusions. 2. Patchy opacity at the right lung base could represent pneumonia or atelectasis. ACT 112: Negative or not required by law. Electronically signed by: Oskar Seaman M.D. 05/16/2025 12:35 PM
[2025-05-16 12:51] LABS: Alanine Aminotransferase 21 U/L (7-52); Albumin Globulin Ratio 1.4 (0.9-2); Albumin Level 3.9 gm/dl (3.4-5.0); Alkaline Phosphatase 100 U/L (34-104); Anion Gap 4 (3-11); Bilirubin,Total 0.7 mg/dl (0.2-1.0); Blood Urea Nitrogen 18 mg/dl (6-23); Calcium 9.3 mg/dl (8.6-10.3); Carbon Dioxide 34 mmol/L (21-32); Chloride 105 mmol/L (98-107); Creatinine Clr Calc Pharmacy 52.7 ml/min; Globulin 2.8 gm/dl (2.5-4.0); Glucose 170 mg/dl (70-99(Fasting)); Potassium 4.1 mmol/L (3.5-5.1); Sodium 143 mmol/L (136-145); Total Protein 6.7 gm/dl (6.0-8.3)
[2025-05-16] MEDS: FUROSEMIDE 40 MG/4 ML VIAL IV ONE (13:08)
--- NOTE | 2025-05-16 13:11 | Emergency Department Note ---
Impression & Plan CHF exacerbation, Acute hypoxemic respiratory failure ED Provider Note NAME: JESSICA RUDD AGE: 89 SEX: F : 1935 ARRIVES VIA: Ambulance INFORMANT: Patient, ED PROVIDER(S): Sarah Muse MD CHIEF COMPLAINT: Shortness of breath HPI: This is an 89-year-old female presenting for shortness of breath. Patient does have history of CHF, A-fib, type 2 diabetes, GERD. Patient is noted increased shortness of breath over the past few days. She has noted leg swelling as well. She inserted 9 pound increase in weight. She checks her weight daily. She reports not having home O2. No chest pain associated with this. She does have more difficulty walking as result of this. ROS: See above HPI for pertinent positives & negatives. A total of 10 systems reviewed and were otherwise negative. PAST MEDICAL HISTORY: See Below PAST SURGICAL HISTORY: See Below FAMILY HISTORY: See Below SOCIAL HISTORY: See Below HOME MEDICATIONS: See Below ALLERGIES: See Below VITALS: See Below PHYSICAL EXAMINATION: General: resting comfortably in no acute distress Head: Normocephalic and atraumatic Eyes: Normal inspection, extraocular muscles intact Ear, nose, throat: Normal external exam Neck: Normal range of motion Respiratory: Crackles at the bases Cardiovascular: Regular rate/rhythm, no murmur GI: soft, nontender, no guarding or rebound Extremities: nontender, moves all extremities, 2+ pitting edema Neuro: The patient awake and alert, appropriately conversive, no focal deficits, symmetric faces Skin: Warm, dry, and intact MEDICAL DECISION MAKING: This is an 89-year-old female present for shortness of breath. Patient does appear wet, has crackles at her bases. She otherwise has not been increased with 2+ pitting edema. Consider fluid overload/CHF. Low concern for pneumonia clinically without signs of fever, chills, nausea, vomiting, illness. - Chest x-ray reveals CHF as well as right lower lung opacity concerning for pneumonia/atelectasis. - Clinically worsens for pneumonia with reassuring blood work as below, no fevers, chills. - Bloodwork is reviewed showing no significant leukocytosis, anemia, electrolyte or creatinine abnormality - Patient given IV Lasix. Will admit for hypoxia secondary to CHF Differential diagnosis: CHF, pneumonia, PE Independent History obtained from: Son and daughter Diagnostics interpreted by me: ECG: ECG independently interpreted by me with ventricularly paced rhythm, rate of 77, normal QRS, normal QTc, no ST segment elevations consistent with STEMI criteria Cardiac Monitoring: An order was placed for continuous cardiac monitoring. The monitor shows a rate of 77 with ventricular rhythm. Past Med/Surg History Problem List (Updated 05/16/25 @ 15:37 by Sarah Muse MD) Acute hypoxemic respiratory failure (Acute) CHF exacerbation (Acute) Atrial fibrillation Pacemaker Fatigue Type 2 diabetes mellitus Hypertension Hyperlipidemia GERD (gastroesophageal reflux disease) Third degree AV block Osteoporosis Cervical disc disease Anticoagulant long-term use Actinic keratosis Cardiac pacemaker Urinary incontinence Arthritis Nocturia Sensorineural hearing loss (SNHL) of both ears AAA (abdominal aortic aneurysm) Prolapse of bladder Sciatica CHF (congestive heart failure) Current use of proton pump inhibitor Medical History Acute hypoxic respiratory failure CHF exacerbation Acute heart failure with preserved ejection fraction (HFpEF) Low back pain Compression fracture of L1 vertebra with routine healing (~04/2023) RSV (respiratory syncytial virus infection) Lab test negative for COVID-19 virus Hypoxemia SOB (shortness of breath) Dyspnea on exertion Cough Congestion of nasal sinus Gross hematuria Bronchitis Endometrial cancer Osteoarthritis Perforated bowel GERD (gastroesophageal reflux disease) Hearing deficit Essential tremor Pacemaker Asthmatic bronchitis Surgical History History of permanent cardiac pacemaker placement H/O: hysterectomy Uterine fibroid History of total knee replacement History of esophagogastroduodenoscopy (EGD) History of colonoscopy History of bowel resection History of colostomy reversal History of tooth extraction History of cataract surgery Family History Father Myocardial infarction Hypertension Heart disease Grandfather (Paternal) Myocardial infarction Uncle Myocardial infarction Mother Heart disease Hearing loss Hypertension Allergies Brother Asthma Other No family history of adverse response to anesthesia No family history of bleeding disorder No significant family history Denies family history of Colon cancer Ovarian cancer Prostate cancer Breast cancer Social History Smoking Status: Never smoker Second Hand Exposure: No; Do You Dip or Chew Tobacco: No; Hx Alcohol Use: No Hx Substance Use: No Preferred Language: [place]ib[place]ian Communication Ability: Effective Visual Impairment: Limited Hearing Ability: Use of Hearing Aid Physical Therapy Attendant Required: No Beliefs That Will Affect Care: None marital status: / Current Living Situation: Personal Care Facility Current Living Situation Comment: Independent Living current occupational status: retired Feels Safe at Home: Yes Safety Concerns: Feels Safe At This Time Childhood Exposure to Second-Hand Smoke: Yes Diet: regular Dental Care, Regularly: Yes Physical Activity Frequency: Daily Seatbelt Use: always Sunscreen Use: No Assistive Devices: Glasses, Hearing Aid - Bilateral, Oxygen - Continuous and Walker Allergies Allergies Allergy/AdvReac Type Severity Reaction Status Date / Time adhesive Allergy Intermediate RED;BROKEN Verified 04/05/25 13:26 SKIN bee venom protein (honey bee) Allergy Intermediate SWELLING Verified 04/05/25 13:26 latex Allergy Intermediate RAW SKIN Verified 04/05/25 13:26 Sulfa (Sulfonamide Allergy Intermediate Abdominal Verified 04/05/25 13:26 Antibiotics) cramping sulfamethoxazole Allergy Unknown CAN'T Verified 04/05/25 13:26 [From Bactrim] REMEMBER trimethoprim [From Bactrim] Allergy Unknown CAN'T Verified 04/05/25 13:26 REMEMBER alendronate sodium AdvReac Intermediate stomach Verified 04/05/25 13:26 [From Fosamax] pain buspirone AdvReac Intermediate Dizziness Verified 04/05/25 13:26 ciprofloxacin [From Cipro] AdvReac Intermediate LOWER LEG Verified 04/05/25 13:26 SWELLING primidone AdvReac Intermediate ESSENTIAL Verified 04/05/25 13:26 TREMORS pneumococcal vaccine AdvReac Mild DISCOMFORT Verified 04/05/25 13:26 enoxaparin AdvReac Unknown NO LOVENOX Verified 04/05/25 13:[address] BARRIENTOS 11/17/09 [id number] ADM Home Meds Home Medications Medication Instructions Recorded Confirmed calcium 600 mg (as carbonate)-vit 1 tab PO BID 06/23/18 05/16/25 D3 20 mcg (800 unit) chewable tablet (Caltrate plus D) cranberry 500 mg capsule 500 mg PO QAM 06/23/18 05/16/25 multivitamin 1 tab PO DAILY 06/23/18 05/16/25 denosumab 60 mg/mL subcutaneous 60 mg subcut Q6MO 03/30/19 05/16/25 syringe (Prolia) cholecalciferol (vitamin D3) 50 2,000 unit PO DAILY 05/10/19 05/16/25 mcg (2,000 unit) tablet (Vitamin D3) amoxicillin 500 mg capsule 2,000 mg PO DAILY PRN Prophylaxis 12/29/24 05/16/25 Lactobacillus acidophilus 1 tab PO DAILY 05/16/25 05/16/25 (Acidophilus chewable tablet) glipizide 5 mg tablet, extended 0 mg PO QPM 05/16/25 05/16/25 release 24 hr omega-3 fatty acids 1,000 mg 1,000 mg PO QAM 05/16/25 05/16/25 capsule Previous Rx's Medication Instructions Recorded apixaban 5 mg tablet (Eliquis) 5 mg PO BID #180 tabs 06/22/24 omeprazole 20 mg tablet,delayed 20 mg PO Q2D #90 tabs 09/22/24 release sertraline 25 mg tablet 25 mg PO DAILY #90 tabs 09/27/24 furosemide 20 mg tablet (Lasix) 40 mg (2 x 20 mg) PO DAILY #180 10/27/24 tabs enalapril maleate 10 mg tablet 10 mg PO QAM #90 tabs 01/24/25 metoprolol succinate 100 mg 100 mg PO DAILY #90 tabs 01/24/25 tablet,extended release 24 hr (Toprol XL) blood sugar diagnostic (OneTouch #200 ea 01/31/25 Ultra Test strips) lancets 30 gauge #200 ea 01/31/25 diltiazem HCl 180 mg capsule,24 180 mg PO QAM #90 caps 02/23/25 hr,extended release (Tiazac) atorvastatin 40 mg tablet 40 mg PO Q OTHER DAY #90 tabs 03/14/25 Results & Data (ED) Vital Signs Vital Signs - 24 hr 05/16/25 12:13 05/16/25 12:13 05/16/25 12:22 Temperature 36.3 C L Temperature Source Oral Pulse Rate 78 Respiratory Rate 30 H Respiratory Effort / Characteristics Non-Labored Spontaneous Respiratory Depth Normal Blood Pressure 151/108 H Blood Pressure Mean 122 Blood Pressure Position Semi-fowlers Pulse Oximetry 90 90 90 Oxygen Delivery Method Room Air Room Air Room Air Oxygen Flow Rate Sepsis Recent Fever Within 48 Hours No Sepsis New/Unexplained Change in Mental Status N/A Sepsis Action Taken by Nursing No Action Required Oxygen Flow Rate - Titration Pulse Oximetry Post Tiitration 05/16/25 12:24 05/16/25 12:25 05/16/25 13:00 Temperature Temperature Source Pulse Rate 75 70 Respiratory Rate 33 H Respiratory Effort / Characteristics Respiratory Depth Blood Pressure 142/84 H Blood Pressure Mean 126 Blood Pressure Position Pulse Oximetry 88 L 94 Oxygen Delivery Method Room Air Nasal Cannula Oxygen Flow Rate 2 Sepsis Recent Fever Within 48 Hours Sepsis New/Unexplained Change in Mental Status Sepsis Action Taken by Nursing Oxygen Flow Rate - Titration 2 Pulse Oximetry Post Tiitration 92 Laboratory Data 05/16/25 12:15 05/16/25 12:15 Lab Results 05/16/25 Range/Units 12:15 WBC 8.13 (4.8-10.8) K/ul RBC 4.61 (4.20-5.40) M/uL Hgb 13.4 (12.0-16.0) g/dl Hct 41.9 (37.0-47.0) % MCV 90.9 (80.0-100.0) fL MCH 29.1 (25.0-34.0) pg MCHC 32.0 (32.0-36.0) g/dL RDW Std Deviation 45.7 (36.4-46.3) fL RDW Coeff of Pepe 13.8 (11.5-14.5) % Plt Count 241 (130-400) K/uL MPV 9.2 L (9.4-12.4) fL Immature Gran % (Auto) 0.4 % Neut % (Auto) 71.1 % Lymph % (Auto) 17.1 % Yates % (Auto) 9.0 % Eos % (Auto) 1.7 % Baso % (Auto) 0.7 % Neut # (Auto) 5.78 (1.40-6.50) K/uL Lymph # (Auto) 1.39 (1.20-3.40) K/uL Yates # (Auto) 0.73 H (0.11-0.59) K/uL Eos # (Auto) 0.14 (0.00-0.50) K/uL Baso # (Auto) 0.06 (0.00-0.20) K/uL Immature Gran # (Auto) 0.03 (0.01-0.20) K/uL Sodium 143 (136-145) mmol/L Potassium 4.1 (3.5-5.1) mmol/L Chloride 105 (98-107) mmol/L Carbon Dioxide 34 H (21-32) mmol/L Anion Gap 4 (3-11) BUN 18 (6-23) mg/dl Creatinine 0.66 (0.6-1.2) mg/dl Est Cr Clr Drug Dosing 52.7 ml/min eGFR 83.80 BUN/Creatinine Ratio 27.3 H (10-20) Glucose 170 H (70-99(Fasting)) mg/dl Calcium 9.3 (8.6-10.3) mg/dl Total Bilirubin 0.7 (0.2-1.0) mg/dl AST 29 (13-39) U/L ALT 21 (7-52) U/L Alkaline Phosphatase 100 (34-104) U/L C-Reactive Protein < 0.50 (0-0.5) mg/dl B-Natriuretic Peptide 614 H (0-100) pg/ml Total Protein 6.7 (6.0-8.3) gm/dl Albumin 3.9 (3.4-5.0) gm/dl Globulin 2.8 (2.5-4.0) gm/dl Albumin/Globulin Ratio 1.4 (0.9-2) Administered Medications Atorvastatin Calcium (Atorvastatin 40 Mg Tab) 40 mg PO Q2D@0900 NEISHA Stop: 06/15/25 14:44 Last Admin: 05/16/25 15:29 Dose: 40 mg Documented By: RJL Discontinued Medications Furosemide (Furosemide 40 Mg/4 Ml Vial) 40 mg IV ONE ONE Stop: 05/16/25 12:53 Last Admin: 05/16/25 13:08 Dose: 40 mg Documented By: JJC Furosemide (Furosemide Inj 20 Mg/2 Ml Vial) 20 mg IV ONE ONE Stop: 05/16/25 13:13 Last Admin: 05/16/25 13:55 Dose: 20 mg Documented By: MMF Imaging Data Radiologist's Impression: Chest X-Ray 05/16/25 12:20 XR chest 1V portable CLINICAL HISTORY: Dyspnea COMPARISON STUDY: 10/19/2024 FINDINGS: Stable pacemaker. Stable cardiomegaly with increased pulmonary vascular congestion. There is interval patchy opacity at the right lung base. There is mild blunting of the costophrenic angles. No pneumothorax. IMPRESSION: 1. CHF with possible small pleural effusions. 2. Patchy opacity at the right lung base could represent pneumonia or atelectasis. ACT 112: Negative or not required by law. Electronically signed by: Oskar Seaman M.D. 05/16/2025 12:35 PM Discharge Plan Visit Data Chief Complaint: Shortness of Breath/Dyspnea ED Provider: Sarah Muse Discharge Problem: CHF exacerbation, Acute hypoxemic respiratory failure Patient Disposition: Admitted As Inpatient Condition: Fair Discharge Instructions Interventions: ED Discharge Assessment Last Done: 05/16/25 14:16
--- NOTE | 2025-05-16 13:12 | History & Physical Report ---
Date of Service May 16, 2025 Assessment & Plan (1) CHF exacerbation: (2) Type 2 diabetes mellitus: (3) Hypertension: (4) Hyperlipidemia: Plan Beckie is a pleasant 88-year-old female with PMH of CHF, third-degree AV block, cardiac pacemaker, AAA, arthritis, urinary continence, GERD, HLD, HTN, and T2DM. She presented on 05/16 for worsening SOB/dyspnea x 2 weeks. She reports she is having SOB both at rest and with exertion. Patient lives at [facility]. #Acute HFpEF BNP ordered, pending Daily weights Strict I&O monitoring Hold Lasix 20 mg p.o. daily SPot IV lasix 60mg x1 monitor renal function #Hypoxia Patient required supplemental O2in the ED with minimal exertion She is not on supplemental oxygen at baseline BioFire negative No leukocytosis; afebrile Suspect this is largely secondary to acute heart failure Titrate supplemental oxygen as needed to maintain SpO2 >94% Continuous pulse oximetry #T2DM Last A1c at 7.5% on 08/24/2024 Hold glipizide T2DM diet Adjust regimen as needed #History of atrial fibrillation S/p pacemaker Continue apixaban, metoprolol Disposition: Admit to MedSurg telemetry DNR/DNI T2DM diet VTE PPx: Eliquis; teds History of Present Illness Chief Complaint: SOB Primary Care Provider: Garrett Rosales MD 89 yo female in a patient with HFpEF, DM2, presents to the hospital with SOB, orthopnea, dyspnea on exertion. She reports having shortness of breath for 2 weeks. Patient states she has been ignoring this, but states that this was just getting worse. She does follow with the HF clinic. Due to worsening symptoms, patient decided to come to the ED. Patient denies any fever, chill,s nausea, vomiting. rash, headache, productive cough, chest pain, diarrhea, focal weakness, dysuria. Allergies Allergy/AdvReac Type Severity Reaction Status Date / Time adhesive Allergy Intermediate RED;BROKEN Verified 04/05/25 13:26 SKIN bee venom protein (honey bee) Allergy Intermediate SWELLING Verified 04/05/25 13:26 latex Allergy Intermediate RAW SKIN Verified 04/05/25 13:26 Sulfa (Sulfonamide Allergy Intermediate Abdominal Verified 04/05/25 13:26 Antibiotics) cramping sulfamethoxazole Allergy Unknown CAN'T Verified 04/05/25 13:26 [From Bactrim] REMEMBER trimethoprim [From Bactrim] Allergy Unknown CAN'T Verified 04/05/25 13:26 REMEMBER alendronate sodium AdvReac Intermediate stomach Verified 04/05/25 13:26 [From Fosamax] pain buspirone AdvReac Intermediate Dizziness Verified 04/05/25 13:26 ciprofloxacin [From Cipro] AdvReac Intermediate LOWER LEG Verified 04/05/25 13:26 SWELLING primidone AdvReac Intermediate ESSENTIAL Verified 04/05/25 13:26 TREMORS pneumococcal vaccine AdvReac Mild DISCOMFORT Verified 04/05/25 13:26 enoxaparin AdvReac Unknown NO LOVENOX Verified 04/05/25 13:[address] BARRIENTOS 11/17/09 [id number] ADM Home Medications Medication Instructions Recorded Confirmed Type calcium 600 mg (as carbonate)-vit 1 tab PO BID 06/23/18 05/16/25 History D3 20 mcg (800 unit) chewable tablet (Caltrate plus D) cranberry 500 mg capsule 500 mg PO QAM 06/23/18 05/16/25 History multivitamin 1 tab PO DAILY 06/23/18 05/16/25 History denosumab 60 mg/mL subcutaneous 60 mg subcut Q6MO 03/30/19 05/16/25 History syringe (Prolia) cholecalciferol (vitamin D3) 50 2,000 unit PO DAILY 05/10/19 05/16/25 History mcg (2,000 unit) tablet (Vitamin D3) apixaban 5 mg tablet (Eliquis) 5 mg PO BID #180 tabs 06/22/24 05/16/25 Rx omeprazole 20 mg tablet,delayed 20 mg PO Q2D #90 tabs 09/22/24 05/16/25 Rx release sertraline 25 mg tablet 25 mg PO DAILY #90 tabs 09/27/24 05/16/25 Rx furosemide 20 mg tablet (Lasix) 40 mg (2 x 20 mg) PO DAILY #180 10/27/24 05/16/25 Rx tabs amoxicillin 500 mg capsule 2,000 mg PO DAILY PRN Prophylaxis 12/29/24 05/16/25 History enalapril maleate 10 mg tablet 10 mg PO QAM #90 tabs 01/24/25 05/16/25 Rx metoprolol succinate 100 mg 100 mg PO DAILY #90 tabs 01/24/25 05/16/25 Rx tablet,extended release 24 hr (Toprol XL) blood sugar diagnostic (OneTouch #200 ea 01/31/25 04/05/25 Rx Ultra Test strips) lancets 30 gauge #200 ea 01/31/25 04/05/25 Rx diltiazem HCl 180 mg capsule,24 180 mg PO QAM #90 caps 02/23/25 05/16/25 Rx hr,extended release (Tiazac) atorvastatin 40 mg tablet 40 mg PO Q OTHER DAY #90 tabs 03/14/25 05/16/25 Rx Lactobacillus acidophilus 1 tab PO DAILY 05/16/25 05/16/25 History (Acidophilus chewable tablet) glipizide 5 mg tablet, extended 0 mg PO QPM 05/16/25 05/16/25 History release 24 hr omega-3 fatty acids 1,000 mg 1,000 mg PO QAM 05/16/25 05/16/25 History capsule Past Med/Surg History Problem List (Updated 05/16/25 @ 15:37 by Sarah Muse MD) Acute hypoxemic respiratory failure (Acute) CHF exacerbation (Acute) Atrial fibrillation Pacemaker Fatigue Type 2 diabetes mellitus Hypertension Hyperlipidemia GERD (gastroesophageal reflux disease) Third degree AV block Osteoporosis Cervical disc disease Anticoagulant long-term use Actinic keratosis Cardiac pacemaker Urinary incontinence Arthritis Nocturia Sensorineural hearing loss (SNHL) of both ears AAA (abdominal aortic aneurysm) Prolapse of bladder Sciatica CHF (congestive heart failure) Current use of proton pump inhibitor Medical History Acute hypoxic respiratory failure CHF exacerbation Acute heart failure with preserved ejection fraction (HFpEF) Low back pain Compression fracture of L1 vertebra with routine healing (~04/2023) RSV (respiratory syncytial virus infection) Lab test negative for COVID-19 virus Hypoxemia SOB (shortness of breath) Dyspnea on exertion Cough Congestion of nasal sinus Gross hematuria Bronchitis Endometrial cancer Osteoarthritis Perforated bowel GERD (gastroesophageal reflux disease) Hearing deficit Essential tremor Pacemaker Asthmatic bronchitis Surgical History History of permanent cardiac pacemaker placement H/O: hysterectomy Uterine fibroid History of total knee replacement History of esophagogastroduodenoscopy (EGD) History of colonoscopy History of bowel resection History of colostomy reversal History of tooth extraction History of cataract surgery Family History Father Myocardial infarction Hypertension Heart disease Grandfather (Paternal) Myocardial infarction Uncle Myocardial infarction Mother Heart disease Hearing loss Hypertension Allergies Brother Asthma Other No family history of adverse response to anesthesia No family history of bleeding disorder No significant family history Denies family history of Colon cancer Ovarian cancer Prostate cancer Breast cancer Social History Smoking Status: Never smoker Second Hand Exposure: No; Do You Dip or Chew Tobacco: No; Hx Alcohol Use: No Hx Substance Use: No Preferred Language: Thai Communication Ability: Effective Visual Impairment: Limited Hearing Ability: Use of Hearing Aid Vice President Of Operations Required: No Beliefs That Will Affect Care: None marital status: / Current Living Situation: Personal Care Facility Current Living Situation Comment: Independent Living current occupational status: retired Feels Safe at Home: Yes Safety Concerns: Feels Safe At This Time Childhood Exposure to Second-Hand Smoke: Yes Diet: regular Dental Care, Regularly: Yes Physical Activity Frequency: Daily Seatbelt Use: always Sunscreen Use: No Assistive Devices: Walker Review of Systems Review of Systems: All systems reviewed & are unremarkable except as noted in HPI & below Physical Exam Constitutional: WD/WN, vitals as above Eyes: PERRL, conjunctivae normal, anicteric sclerae Neck: trachea midline, no thyromegaly Respiratory: + uses accessory muscles Auscultation : + rales Cardiovascular: RRR, no murmur, no edema Gastrointestinal (Abdomen): normal bowel sounds, soft, nontender, no hepatosplenomegaly Musculoskeletal: no cyanosis or clubbing, extremities motor strength 5/5 Neurologic: PERRL, EOMI, accommodation nl, no face palsy, no dysarthria Psychiatric: A+Ox3, euthymic affect Results & Data Results & Data Vital Signs (Past 12 Hours) Vital Signs Temp Pulse Resp BP Pulse Ox O2 Del Method 05/16/25 12:25 75 05/16/25 12:24 88 L Room Air 05/16/25 12:22 90 Room Air 05/16/25 12:13 90 Room Air 05/16/25 12:13 36.3 C L 78 30 H 151/108 H 90 Room Air PG Care Time/CCT Total # of Minutes Spent Total Time Spent with Patient: Total time spent is greater than 50% in coordination of care (as documented) at patient's floor/unit and/or counseling patient: Coding Level of Care Code 13749 INT INP/OBS CARE 3/75MIN Diagnoses CHF exacerbation I50.9 Type 2 diabetes mellitus without complication, without long-term current use of insulin E11.9 Diabetes mellitus complication status: without complication Diabetes mellitus care home insulin use: without care home use Essential hypertension I10 Hypertension type: essential hypertension Hyperlipidemia, unspecified hyperlipidemia type E78.5 Hyperlipidemia type: unspecified (2) Type 2 diabetes mellitus Diabetes mellitus complication status: without complication Diabetes mellitus intermediate frame tender insulin use: without intermediate frame tender use Qualified Code(s): E11.9 - Type 2 diabetes mellitus without complications (3) Hypertension Hypertension type: essential hypertension Qualified Code(s): I10 - Essential (primary) hypertension (4) Hyperlipidemia Hyperlipidemia type: unspecified Qualified Code(s): E78.5 - Hyperlipidemia, unspecified
[2025-05-16] MEDS: FUROSEMIDE INJ 20 MG/2 ML VIAL IV ONE (13:55)
--- NOTE | 2025-05-16 15:23 | Electrocardiogram Report ---
Test Reason : Blood Pressure : */* mmHG Vent. Rate : 84 BPM Atrial Rate : 45 BPM P-R Int : * ms QRS Dur : 156 ms QT Int : 408 ms P-R-T Axes : * 259 79 degrees QTcB Int : 482 ms Ventricular-paced rhythm Abnormal ECG When compared with ECG of 19-Oct-2024 11:58, Vent. rate has increased by 4 bpm Confirmed by Garrett Sarkar ([id number]) on 05/16/2025 3:23:37 PM Referred By: REFERRED SELF Confirmed By: Garrett Sarkar
[2025-05-16] MEDS: ATORVASTATIN 40 MG TAB PO SCH (15:29)
[2025-05-16] MEDS: CALCIUM 600MG + VIT D 400 IU TAB PO SCH (19:59)
[2025-05-16] MEDS: APIXABAN 5 MG TABLET PO SCH (19:59)
[2025-05-17 06:13] LABS: Hematocrit (blood only) 40.4 % (37.0-47.0); Hemoglobin 13.0 g/dl (12.0-16.0); Mean Corpuscular Hemoglobin 29.2 pg (25.0-34.0); Mean Corpuscular Volume 90.8 fL (80.0-100.0); Platelet Count 223 K/uL (130-400); RDW Standard Deviation 44.9 fL (36.4-46.3); Red Blood Count 4.45 M/uL (4.20-5.40); White Blood Count 9.14 K/ul (4.8-10.8)
[2025-05-17 06:17] LABS: Appearance Urine Cloudy (Clear); Bacteria Urine Automated 4+ (None Seen); Cast Urine Automated 0-2 /lpf (0-2); Epithelial Cell Urine Auto 0-2 /hpf (0-2); Glucose Urine UA Negative (Negative); WBC Urine Automated >50 /hpf (0-5)
[2025-05-17 06:32] LABS: Anion Gap 6.0 (3-11); Blood Urea Nitrogen 14.0 mg/dl (6-23); Calcium 8.9 mg/dl (8.6-10.3); Carbon Dioxide 34.0 mmol/L (21-32); Chloride 102.0 mmol/L (98-107); Creatinine Clr Calc Pharmacy 56.4 ml/min; Glucose 154.0 mg/dl (70-99(Fasting)); Potassium 3.5 mmol/L (3.5-5.1); Sodium 142.0 mmol/L (136-145)
[2025-05-17 06:46] LABS: Influenza A virus by PCR Negative (Neg); Influenza B virus by PCR Negative (Neg); SARS CoV2 RNA(COVID-19) Ceph NEGATIVE (Negative)
[2025-05-17 07:37] LABS: Hemoglobin A1C 7.5 % (4.5-5.6)
[2025-05-17] MEDS: FUROSEMIDE 40 MG/4 ML VIAL IV ONE (08:58)
[2025-05-17] MEDS: METOPROLOL SUCC 50MG EXT REL TAB PO SCH (08:59)
[2025-05-17] MEDS: SERTRALINE HCL 50 MG TABLET PO SCH (08:59)
[2025-05-17] MEDS: CHOLECALCIFEROL 25 MCG (1000 UNITS) TAB PO SCH (08:59)
[2025-05-17] MEDS: ADVANCED PROBIOTIC 625 MG CAPSULE PO SCH (09:00)
[2025-05-17] MEDS: ENALAPRIL MALEATE 10 MG TAB PO SCH (09:00)
[2025-05-17] MEDS ORDERED: NON-FORMULARY MEDICATION (Cranberry 500 mg Capsule) PO SCH (09:00)
[2025-05-17] MEDS: FUROSEMIDE INJ 20 MG/2 ML VIAL IV ONE (16:48)
[2025-05-17] MEDS: POTASSIUM CHLORIDE CRTAB 20 MEQ TABCR PO STA (16:49)
--- NOTE | 2025-05-17 17:33 | XRay Report ---
EXAM: Chest x-ray 2 view CLINICAL HISTORY: CHF PRIORS: 10/19/2024 TECHNIQUE: PA and lateral views chest FINDINGS: Left-sided cardiac device noted. The chest is well-expanded. Moderate interstitial prominence noted with engorgement of the central pulmonary vasculature. No large pleural effusion. Cardiac silhouette moderately enlarged, unchanged. Atherosclerotic disease of the abdominal aorta noted. Possible infrarenal abdominal aortic aneurysm on the lateral view measuring 3.3 cm. Heart size is normal. No pneumothorax. Trachea is patent. Osseous structures demonstrate no acute abnormality. No radiopaque foreign body. IMPRESSION: 1. Radiographic features of moderate volume overload. 2. Possible infrarenal abdominal aortic aneurysm identified on the lateral view. ACT 112: Positive. There are findings on this examination that require communication between the performing entity and the patient following Patient Test Result Information Act ([place] ACT 112) guidelines. Electronically signed by Leslie Chinchilla 05-17-2025 5:32 PM
--- NOTE | 2025-05-17 23:03 | Hospitalist Progress Note ---
Date of Service May 17, 2025 Assessment & Plan (1) CHF exacerbation: (2) Type 2 diabetes mellitus: (3) Hypertension: (4) Hyperlipidemia: Plan Beckie is a pleasant 88-year-old female with PMH of CHF, third-degree AV block, cardiac pacemaker, AAA, arthritis, urinary continence, GERD, HLD, HTN, and T2DM. She presented on 05/16 for worsening SOB/dyspnea x 2 weeks. She reports she is having SOB both at rest and with exertion. Patient lives at [facility]. #Acute HFpEF BNP 523 Daily weights Strict I&O monitoring Hold Lasix 40 mg p.o. daily tolerating lasix V 40mg in AM and 20 mg in PM monitor renal function checked chest x ray, improved but still showing pulmonary edema. #Hypoxia Patient required supplemental O2in the ED with minimal exertion She is not on supplemental oxygen at baseline BioFire negative No leukocytosis; afebrile Suspect this is largely secondary to acute heart failure Titrate supplemental oxygen as needed to maintain SpO2 >94% Continuous pulse oximetry #T2DM Last A1c at 7.5% on 08/24/2024 Hold glipizide T2DM diet ACHS Adjust regimen as needed #History of atrial fibrillation S/p pacemaker Continue apixaban, metoprolol Disposition: Admit to [facility] telemetry DNR/DNI T2DM diet VTE PPx: Elitesfaye; brandon Admission and Anticipated Discharge Date Admission Date: May 16, 2025 Subjective Patient reports feeling better. She is not quite at baseline, but her breathing has improved. SHe is laying more flat today. Review of Systems Review of Systems: All systems reviewed & are unremarkable except as noted in HPI & below Physical Exam Constitutional: WD/WN, vitals as above Eyes: PERRL, conjunctivae normal, anicteric sclerae Neck: trachea midline, no thyromegaly Respiratory: Auscultation: + rales Cardiovascular: RRR, no murmur, no edema Gastrointestinal (Abdomen): normal bowel sounds, soft, nontender, no hepatosplenomegaly Musculoskeletal: no cyanosis or clubbing, extremities motor strength 5/5 Neurologic: PERRL, EOMI, accommodation nl, no face palsy, no dysarthria Psychiatric: A+Ox3, euthymic affect Results & Data Results & Data Vital Signs (Past 12 Hours) Vital Signs Temp Pulse Pulse Resp BP Pulse Ox O2 Del Method 05/17/25 22:52 36.6 C 73 16 151/89 H 93 Nasal Cannula 05/17/25 19:33 Nasal Cannula 05/17/25 19:05 36.4 C L 70 18 126/76 94 Nasal Cannula 05/17/25 15:31 71 05/17/25 15:19 36.3 C L 70 18 119/73 94 Nasal Cannula 05/17/25 11:12 36.5 C 71 18 120/72 94 Nasal Cannula O2 Flow Rate 05/17/25 22:52 2 05/17/25 19:33 2 05/17/25 19:05 2 05/17/25 15:31 05/17/25 15:19 2 05/17/25 11:12 2 PG Care Time/CCT Total # of Minutes Spent Total Time Spent with Patient: Total time spent is greater than 50% in coordination of care (as documented) at patient's floor/unit and/or counseling patient: Coding Level of Care Code 78756 SUB INP/OBS CARE 3/50MIN Diagnoses CHF exacerbation I50.9 Type 2 diabetes mellitus without complication, without long-term current use of insulin E11.9 Diabetes mellitus terminal operator insulin use: without terminal operator use Diabetes mellitus complication status: without complication Essential hypertension I10 Hypertension type: essential hypertension Hyperlipidemia, unspecified hyperlipidemia type E78.5 Hyperlipidemia type: unspecified (2) Type 2 diabetes mellitus Diabetes mellitus custodial insulin use: without terminal operator use Diabetes mellitus complication status: without complication Qualified Code(s): E11.9 - Type 2 diabetes mellitus without complications (3) Hypertension Hypertension type: essential hypertension Qualified Code(s): I10 - Essential (primary) hypertension (4) Hyperlipidemia Hyperlipidemia type: unspecified Qualified Code(s): E78.5 - Hyperlipidemia, unspecified
[2025-05-18 06:14] LABS: Hematocrit (blood only) 40.7 % (37.0-47.0); Hemoglobin 13.7 g/dl (12.0-16.0); Mean Corpuscular Hemoglobin 30.3 pg (25.0-34.0); Mean Corpuscular Volume 90.0 fL (80.0-100.0); Platelet Count 221 K/uL (130-400); RDW Standard Deviation 43.7 fL (36.4-46.3); Red Blood Count 4.52 M/uL (4.20-5.40); White Blood Count 8.35 K/ul (4.8-10.8)
[2025-05-18] MEDS ORDERED: PHARMACY GLYCEMIC MGMT CONSULT PRN (06:27)
[2025-05-18 06:33] LABS: Anion Gap 4.0 (3-11); Blood Urea Nitrogen 13.0 mg/dl (6-23); Calcium 8.7 mg/dl (8.6-10.3); Carbon Dioxide 35.0 mmol/L (21-32); Chloride 101.0 mmol/L (98-107); Creatinine Clr Calc Pharmacy 59.1 ml/min; Glucose 140.0 mg/dl (70-99(Fasting)); Potassium 3.8 mmol/L (3.5-5.1); Sodium 140.0 mmol/L (136-145)
[2025-05-18] MEDS ORDERED: GLUCOSE 10 TAB/TUBE PO PRN (06:42)
[2025-05-18] MEDS ORDERED: CARBOHYDRATES FOR HYPOGLYCEMIA PO PRN (06:42)
[2025-05-18] MEDS ORDERED: GLUCOSE 40% GEL 15 GM TUBE PO PRN (06:42)
[2025-05-18] MEDS ORDERED: GLUCAGON FOR INJ 1 MG VIAL SQ PRN (06:42)
[2025-05-18] MEDS ORDERED: DEXTROSE 50% 50 ML SYRINGE IV PRN (06:42)
[2025-05-18] MEDS: INSULIN ASPART PER UNIT CHARGE SC SCH (09:00)
[2025-05-18] MEDS: FUROSEMIDE 40 MG/4 ML VIAL IV ONE (09:00)
[2025-05-18 09:01] LABS: Magnesium 1.7 mg/dl (1.7-2.4)
--- NOTE | 2025-05-18 11:21 | Pharmacy Report ---
Pharmacy Glycemic Short Note 2 - Date of Service May 18, 2025 - Glycemic Short BSG Results (Last 24 hours): 05/18/25 05/18/25 05/18/25 05:30 07:28 11:02 Glucose 140 H POC Glucose 143 H 197 H OUTPATIENT ANTIDIABETIC REGIMEN: * glipizide 5mg PO daily * HbA1c 7.5% (05/17/25) ASSESSMENT: * Beckie is an 80 year old female admitted with a CHF exacerbation and a history of type 2 diabetes mellitus. Pharmacy has been consulted to assist with glycemic management while in patient. * Fasting BSG this AM acceptable, but has been elevated past two days and she has received no insulin and only morning BSG checks. Will initiate low-dose basal insulin to assist with glycemic management. * NovoLog at a weight based stress of 1.5. No glycemic stressor noted. PLAN FOR INPATIENT GLYCEMIC CONTROL: * Hold outpatient oral diabetes medications * Basal insulin * Lantus 5 units SQ daily * Bolus insulin * NovoLog per scale ACHS or Q6hrs while NPO * Goal Range: Low 120 mg/dL - High 160 mg/dL * Correction Factor: 35 mg/dL/unit * Nutritional / Prandial insulin per carb ratio of 1 unit per 12 grams CHO consumed
[2025-05-18] MEDS: LANTUS PER UNIT CHARGE SC SCH (12:39)
--- NOTE | 2025-05-18 15:30 | Hospitalist Progress Note ---
Date of Service May 18, 2025 Assessment & Plan (1) CHF exacerbation: (2) Type 2 diabetes mellitus: (3) Hypertension: (4) Hyperlipidemia: Plan 88yo female with chronic diastolic CHF, third-degree AV block with pacemaker, AAA, arthritis, urinary continence, GERD, Hyperlipidemia, HTN, and T2DM. Presented with decompensated CHF. Patient lives at [place] [facility]. #Acute/chronic HFpEF - -clinically improving -cont BID IV lasix - 40mg am, 20mg pm -daily BMP -echo 09/2024 - preserved EF, moderate pulm HTN -cause of decompensation - compliance with diuretics?? #asymptomatic bacteriuria - -no LUTS -no dysuria -no fever or abd symptoms -reasonable NOT to Rx with abx #T2DM - -A1c 7.5% this admission -BSGs < 200 -Hold glipizide -cont lantus/novolog #History of atrial fibrillation - -pacemaker in place -Continue apixaban, metoprolol succ PT, OT evals needed to ensure safe d/c back to the [place] Admission and Anticipated Discharge Date Admission Date: May 16, 2025 Subjective dyspnea MUCH improved LE edema improved still requiring some NC O2 - staff report that w/o such she desats to the 80s NO UTI symptoms appetite is good tele stable overnight Review of Systems Review of Systems: CV - no cp, no orthopnea pulm - minimal cough GI - no N/V Physical Exam Physical Exam: gen - NAD, pleasant, dysphonic speech neck - JVD present mouth - MMM heart - RRR, s1 s2 lungs - minimal rales bases, otherwise CTA b/l abd - soft NT ND BS+ ext - <1+ edema b/l shins/feet vascular - pulses b/l feet 2+ Results & Data Results & Data Vital Signs (Past 12 Hours) Vital Signs Temp Pulse Pulse Resp BP Pulse Ox O2 Del Method 05/18/25 11:21 36.5 C 69 18 109/64 96 Nasal Cannula 05/18/25 08:00 70 05/18/25 08:00 Nasal Cannula 05/18/25 07:30 36.6 C 75 16 130/71 90 Nasal Cannula O2 Flow Rate 05/18/25 11:21 2 05/18/25 08:00 05/18/25 08:00 2 05/18/25 07:30 2 Laboratory Results Laboratory Results - last 48 hr 05/18/25 05/18/25 05/18/25 05:30 07:28 11:02 WBC 8.35 RBC 4.52 Hgb 13.7 Hct 40.7 MCV 90.0 MCH 30.3 MCHC 33.7 RDW Std Deviation 43.7 RDW Coeff of Pepe 13.2 Plt Count 221 MPV 9.7 Sodium 140 Potassium 3.8 Chloride 101 Carbon Dioxide 35 H Anion Gap 4 BUN 13 Creatinine 0.56 L Est Cr Clr Drug Dosing 59.1 eGFR 87.18 BUN/Creatinine Ratio 23.2 H Glucose 140 H POC Glucose 143 H 197 H Calcium 8.7 Magnesium 1.7 B-Natriuretic Peptide 431 H PG Care Time/CCT Total # of Minutes Spent Total Time Spent with Patient: Total time spent is greater than 50% in coordination of care (as documented) at patient's floor/unit and/or counseling patient: Coding Level of Care Code 79595 SUB INP/OBS CARE 2/35MIN Diagnoses CHF exacerbation I50.9 Type 2 diabetes mellitus without complication, without long-term current use of insulin E11.9 Diabetes mellitus complication status: without complication Diabetes mellitus meterman insulin use: without assisted use Essential hypertension I10 Hypertension type: essential hypertension Hyperlipidemia, unspecified hyperlipidemia type E78.5 Hyperlipidemia type: unspecified (2) Type 2 diabetes mellitus Diabetes mellitus complication status: without complication Diabetes mellitus meterman insulin use: without assisted use Qualified Code(s): E11.9 - Type 2 diabetes mellitus without complications (3) Hypertension Hypertension type: essential hypertension Qualified Code(s): I10 - Essential (primary) hypertension (4) Hyperlipidemia Hyperlipidemia type: unspecified Qualified Code(s): E78.5 - Hyperlipidemia, unspecified
[2025-05-18] MEDS: FUROSEMIDE INJ 20 MG/2 ML VIAL IV ONE (16:52)
[2025-05-19 07:04] LABS: Anion Gap 6.0 (3-11); Blood Urea Nitrogen 16.0 mg/dl (6-23); Calcium 9.1 mg/dl (8.6-10.3); Carbon Dioxide 37.0 mmol/L (21-32); Chloride 98.0 mmol/L (98-107); Creatinine Clr Calc Pharmacy 58.6 ml/min; Glucose 113.0 mg/dl (70-99(Fasting)); Potassium 3.4 mmol/L (3.5-5.1); Sodium 141.0 mmol/L (136-145)
[2025-05-19] MEDS: POTASSIUM CHLORIDE CRTAB 20 MEQ TABCR PO SCH (10:16)
--- NOTE | 2025-05-19 14:15 | Hospitalist Progress Note ---
Date of Service May 19, 2025 Assessment & Plan (1) CHF exacerbation: (2) Type 2 diabetes mellitus: (3) Hypertension: (4) Hyperlipidemia: Plan 88yo female with chronic diastolic CHF, third-degree AV block with pacemaker, AAA, arthritis, urinary continence, GERD, Hyperlipidemia, HTN, permanent a.fib on Eliquis, and T2DM. Presented with decompensated CHF. Patient lives at [place] [facility]. #Acute/chronic HFpEF - -clinically improving/resolving -weight today is significantly down - at least 7-8kg since admission - and the lowest weight in the computer in a long time -cont BID IV lasix - 40mg am, 20mg pm -daily BMP; obtain mag tomorrow as well -echo 09/2024 - preserved EF, moderate pulm HTN -cause of decompensation - compliance with diuretics?? -I am surprised she is still requiring oxygen at this point as she appears close to euvolemia -perhaps pulmonary HTN has worsened? -consider repeat limited echo next 48 hours to recheck PA pressures #asymptomatic bacteriuria - -no LUTS -no dysuria -no fever or abd symptoms -reasonable NOT to Rx with abx #T2DM - -A1c 7.5% this admission -BSGs < 200 -Hold glipizide -cont lantus/novolog #History of atrial fibrillation - -pacemaker in place -Continue apixaban, metoprolol succ, diltiazem CD -last pacer interrogation January 2025 - in afib 100% of the time -check a TSH in am #HTN - -controlled -cont meto succ 100mg daily, enalapril 10mg daily, diltiazem CD 180mg daily #essential HTN/dysphonic speech - -cont meto succ #mild hypokalemia - -supplement -repeat BMP and mag in am -2nd to lasix IV PT, OT evals needed to ensure safe d/c back to the [place] updated pt's daughter by phone this evening, 05/19 Admission and Anticipated Discharge Date Admission Date: May 16, 2025 Subjective no events overnight feeling much better edema of legs resolved denies any dyspnea with walking to the commode denies dyspnea at rest eating well Review of Systems Review of Systems: CV - no orthopnea, no PND, no chest pain pulm - no dyspnea or wheeze GI - no N/V Physical Exam Physical Exam: gen - NAD, pleasant, dysphonic speech/essential tremor, looks well neck - JVD present with very prominent pulsations mouth - MMM heart - RRR, s1 s2, 2-3/6 systolic murmur loudest mid LSB lungs - CTA b/l; no rales; no wheeze abd - soft NT ND BS+ ext - trace edema b/l shins/feet vascular - pulses b/l feet 2+ Results & Data Results & Data Vital Signs (Past 12 Hours) Vital Signs Temp Pulse Pulse Resp BP Pulse Ox O2 Del Method 05/19/25 11:29 36.5 C 70 18 130/76 93 Nasal Cannula 05/19/25 08:00 70 05/19/25 08:00 Nasal Cannula 05/19/25 07:20 36.6 C 70 19 121/72 96 Nasal Cannula 05/19/25 03:02 36.4 C L 85 126/79 96 Nasal Cannula O2 Flow Rate 05/19/25 11:29 2 05/19/25 08:00 05/19/25 08:00 2 05/19/25 07:20 2.0 05/19/25 03:02 2 Laboratory Results Laboratory Results - last 24 hr 05/19/25 05/19/25 05/19/25 05:26 07:15 11:38 Sodium 141 Potassium 3.4 L Chloride 98 Carbon Dioxide 37 H Anion Gap 6 BUN 16 Creatinine 0.56 L Est Cr Clr Drug Dosing 58.6 eGFR 87.18 BUN/Creatinine Ratio 28.6 H Glucose 113 H POC Glucose 133 H 134 H Calcium 9.1 PG Care Time/CCT Total # of Minutes Spent Total Time Spent with Patient: Total time spent is greater than 50% in coordination of care (as documented) at patient's floor/unit and/or counseling patient: Coding Level of Care Code 51169 SUB INP/OBS CARE 235MIN Diagnoses CHF exacerbation I50.9 Type 2 diabetes mellitus without complication, without long-term current use of insulin E11.9 Diabetes mellitus complication status: without complication Diabetes mellitus skilled nursing insulin use: without skilled nursing use Essential hypertension I10 Hypertension type: essential hypertension Hyperlipidemia, unspecified hyperlipidemia type E78.5 Hyperlipidemia type: unspecified (2) Type 2 diabetes mellitus Diabetes mellitus complication status: without complication Diabetes mellitus remote computer terminal operator insulin use: without remote computer terminal operator use Qualified Code(s): E11.9 - Type 2 diabetes mellitus without complications (3) Hypertension Hypertension type: essential hypertension Qualified Code(s): I10 - Essential (primary) hypertension (4) Hyperlipidemia Hyperlipidemia type: unspecified Qualified Code(s): E78.5 - Hyperlipidemia, unspecified
[2025-05-19] MEDS: FUROSEMIDE INJ 20 MG/2 ML VIAL IV ONE (16:51)
[2025-05-20 06:29] LABS: Anion Gap 5.0 (3-11); Blood Urea Nitrogen 17.0 mg/dl (6-23); Calcium 9.3 mg/dl (8.6-10.3); Carbon Dioxide 36.0 mmol/L (21-32); Chloride 98.0 mmol/L (98-107); Creatinine Clr Calc Pharmacy 49.7 ml/min; Glucose 135.0 mg/dl (70-99(Fasting)); Magnesium 1.6 mg/dl (1.7-2.4); Potassium 4.3 mmol/L (3.5-5.1); Sodium 139.0 mmol/L (136-145)
[2025-05-20 07:01] LABS: Thyroid Stimulating Hormone 1.272 uIu/ml (0.300-4.500)
[2025-05-20] MEDS: POLYETHYLENE (MIRALAX) 17 GM PACK PO SCH (08:28)
[2025-05-20] MEDS: POTASSIUM CHLORIDE CRTAB 20 MEQ TABCR PO SCH (08:28)
[2025-05-20] MEDS: MAGNESIUM SULFATE / D5W 1 GM/100 ML BAG IV ONE (08:41)
--- NOTE | 2025-05-20 12:06 | Pharmacy Report ---
Pharmacy Glycemic Sign Off Nt - Date of Service May 20, 2025 - Assessment & Plan ASSESSMENT: * Pharmacy was consulted by Dr Aragon on 05/18 for glycemic control and to write orders per [facility] inpatient glycemic control protocol. * Major changes made by pharmacy to antidiabetic regimen include: * added novolog and low dose basal * Patient has been receiving minimal insulin over last 48 hours PLAN FOR INPATIENT GLYCEMIC CONTROL: No changes needed to current regimen. * Continue basal insulin with Lantus 5 units once daily * Continue NovoLog per scale ACHS/Q6hrs while NPO * Goal range = 120-180 mg/dl * CF = 35 mg/dl/unit * CR = 1 unit for ever 12 g CHO consumed * Pharmacy is signing off of glycemic consult and will no longer be making adjustments to inpatient regimen. Please feel free to re-consult if needed. Thank you.
--- NOTE | 2025-05-20 16:07 | Hospitalist Progress Note ---
Date of Service May 20, 2025 Assessment & Plan (1) CHF exacerbation: (2) Type 2 diabetes mellitus: (3) Hypertension: (4) Hyperlipidemia: Plan 88yo female with chronic diastolic CHF, third-degree AV block with pacemaker, AAA, arthritis, urinary continence, GERD, Hyperlipidemia, HTN, permanent a.fib on Eliquis, and T2DM. Presented with decompensated CHF. Patient lives at [place] [facility]. #Acute/chronic HFpEF Clinically improving/resolving Weight today is significantly down - at least 7-8kg since admission - and the lowest weight in the computer in a long time Cont BID IV lasix - 40mg am, 20mg pm Daily BMP; obtain mag tomorrow as well Echo 09/2024 - preserved EF, moderate pulm HTN Cause of decompensation - compliance with diuretics?? Presently, she is still requiring oxygen at this point as she appears close to euvolemia Perhaps pulmonary HTN has worsened? Repeat limited echocardiogram ordered on 05/20 Per nursing staff, patient has been dropping to the high 80% SpO2 range when sleeping #Asymptomatic bacteriuria No LUTS, dysuria, fevers, or abdominal symptom Will defer antibiotics #T2DM A1c 7.5% this admission BSGs < 200 Hold glipizide Pharmacy glycemic consult discontinued on 05/14 as her sugars have looked good on her current inpatient regimen Cont lantus/novolog #History of atrial fibrillation Pacemaker in place Continue apixaban, metoprolol succ, diltiazem CD Last pacer interrogation January 2025 - in afib 100% of the time TSH WNL #HTN Continue meto succ 100mg daily, enalapril 10mg daily, diltiazem CD 180mg daily #Essential HTN/dysphonic speech Cont meto succ #Hypokalemia | hypomagnesemia Continue to monitor; replete PRN Disposition: Downgraded from PCU telemetry to MedSurg telemetry on 05/20 PT, OT evals needed to ensure safe d/c back to the [place] Per intial eval on 05/20, patient is close to her baseline level of function; plan for patient return to apartment once meeting outline PT goals updated pt's daughter by phone on 05/19 Admission and Anticipated Discharge Date Admission Date: May 16, 2025 Subjective Mrs. Reyes is glad to report that she is doing "much better than [she] was on Friday". She is not having any dyspnea on exertion, and does not feel lightheaded when up ambulating with a walker. She was able to get up and ambulate throughout the halls today, and did not feel "dizzy or lightheaded" like she did on Friday. Patient is not normally on supplemental oxygen at baseline; no CPAP at night. BM today. Overall, she reports she is doing well. ROS: Patient endorses dry cough Patient denies fever, chills, night sweats, SOB, BALDERAS, pleuritic CP, CP, abdominal pain, N/V/D, or decreased urinary production. Review of Systems Review of Systems: See HPI above Physical Exam Physical Exam: General: no acute distress; pleasant affect; non-toxic appearing; frail- appearing; cooperative; SpO2 97% on 2L NC HEENT: normocephalic, atraumatic; PERRLA; vision and hearing intact Neck: supple; trachea midline Skin: warm, dry without signs of tenting; no cyanosis; no rashes, bruising, lesions, or erythema noted CV: chest wall NTP; RRR; S1/S2 normal; no murmurs/rubs/gallops; pulses intact and symmetric at radial, DP, and PT Lungs: no acute respiratory distress; symmetrical chest wall expansion; clear breath sounds across all lung horner w/o adventitious sounds; no wheezing ABD: Soft, NTP; BS present; no rebound/guarding; no distention MSK: Resting essential tremor; no edema noted in the LEs b/l, nonerythematous Neuro: A&Ox3; normal mood and affect; somewhat dysphonic speech; sensation intact and symmetric in the LEs b/l Results & Data Results & Data Vital Signs (Past 12 Hours) Vital Signs Temp Pulse Pulse Resp BP Pulse Ox O2 Del Method 05/20/25 15:47 36.3 C L 70 18 123/75 97 Nasal Cannula 05/20/25 11:42 36.8 C 70 18 101/65 97 Nasal Cannula 05/20/25 08:01 36.7 C 80 18 142/85 H 96 Nasal Cannula 05/20/25 08:00 Nasal Cannula 05/20/25 07:15 71 O2 Flow Rate 05/20/25 15:47 05/20/25 11:42 2 05/20/25 08:01 05/20/25 08:00 2 09/26/25 07:15 PG Care Time/CCT Total # of Minutes Spent Total Time Spent with Patient: Total time spent is greater than 50% in coordination of care (as documented) at patient's floor/unit and/or counseling patient: Coding [place] [address] SUB INP/OBS CARE 2/35MIN Patient Type Established History Comprehensive Exam Comprehensive Medical Decision Making Moderate Complexity Diagnoses CHF exacerbation I50.9 Type 2 diabetes mellitus without complication, without long-term current use of insulin E11.9 Diabetes mellitus complication status: without complication Diabetes mellitus correction insulin use: without correction use Essential hypertension I10 Hypertension type: essential hypertension Hyperlipidemia, unspecified hyperlipidemia type E78.5 Hyperlipidemia type: unspecified (2) Type 2 diabetes mellitus Diabetes mellitus complication status: without complication Diabetes mellitus correction insulin use: without director long term care use Qualified Code(s): E11.9 - Type 2 diabetes mellitus without complications (3) Hypertension Hypertension type: essential hypertension Qualified Code(s): I10 - Essential (primary) hypertension (4) Hyperlipidemia Hyperlipidemia type: unspecified Qualified Code(s): E78.5 - Hyperlipidemia, unspecified
--- NOTE | 2025-05-20 20:02 | XCELERA ---
[id number] \\[id number]
[2025-05-21] MEDS ORDERED: COUGH DROP (SUGAR FREE) LOZ 24 LOZ/1 BOX BUCCAL PRN (05:57)
[2025-05-21 07:58] LABS: Anion Gap 3.0 (3-11); Blood Urea Nitrogen 14.0 mg/dl (6-23); Calcium 9.0 mg/dl (8.6-10.3); Carbon Dioxide 37.0 mmol/L (21-32); Chloride 100.0 mmol/L (98-107); Creatinine Clr Calc Pharmacy 49.4 ml/min; Glucose 143.0 mg/dl (70-99(Fasting)); Potassium 4.6 mmol/L (3.5-5.1); Sodium 140.0 mmol/L (136-145)
--- NOTE | 2025-05-21 15:11 | Hospitalist Progress Note ---
Date of Service May 21, 2025 Assessment & Plan (1) CHF exacerbation: (2) Type 2 diabetes mellitus: (3) Hypertension: (4) Hyperlipidemia: Plan 88yo female with chronic diastolic CHF, third-degree AV block with pacemaker, AAA, arthritis, urinary continence, GERD, Hyperlipidemia, HTN, permanent a.fib on Eliquis, and T2DM. Presented with decompensated CHF. Patient lives at [facility]. #Acute on chronic HFpEF Clinically improving/resolving Weight today is significantly down - at least 7-8kg since admission - and the lowest weight in the computer in a long time Cont BID IV lasix - 40mg am, 20mg pm Daily BMP while inpatient Echo 09/2024 - preserved EF, moderate pulm HTN Repeat limited echocardiogram on 05/20 revealed LVEF at >70%; no regional wall motion abnormalities; severe biatrial dilation; elevated RSVP at 55 mm Hg Presently, she is still requiring oxygen at this point as she appears close to euvolemia Perhaps pulmonary HTN has worsened? Repeat limited echocardiogram ordered on 05/20 Per nursing staff, patient has been dropping to the high 80% SpO2 range when sleeping; patient denies prior history of NICKY Two step with respiratory therapy performed on 05/21; patient meets requirements for supplemental home oxygen with ambulation New Rx: 2L NC to be used with ambulation and at bedtime Explained to patient that this could also be while she is resting, if her SpO2 drops to less than 90% Patient reports she has a home pulse oximeter Per intial PT eval on 05/20, patient is close to her baseline level of function; plan for patient return to apartment once meeting outline PT goals #Asymptomatic bacteriuria No LUTS, dysuria, fevers, or abdominal symptom Will defer antibiotics #T2DM A1c 7.5% this admission BSGs < 200 Hold glipizide Pharmacy glycemic consult discontinued on 05/14 as her sugars have looked good on her current inpatient regimen Cont lantus/novolog #History of atrial fibrillation Pacemaker in place Continue apixaban, metoprolol succ, diltiazem CD Last pacer interrogation January 2025 - in afib 100% of the time TSH WNL #HTN Continue meto succ 100mg daily, enalapril 10mg daily, diltiazem CD 180mg daily #Essential HTN/dysphonic speech Cont meto succ #Hypokalemia | hypomagnesemia Continue to monitor; replete PRN Disposition: Medically stable for discharge on 05/21 so long as she can be sent home with home oxygen; however, unable to obtain transport today Will plan for discharge back to the [facility] on 05/22 Family reportedly able to transport Admission and Anticipated Discharge Date Admission Date: May 16, 2025 Subjective Mrs. Reyes is sitting upright in bed brushing her teeth this morning. She is in good spirits overall, she says she feels ready to go home "whenever". She feels much better than she did when she came in on Friday. Prior to arrival, she had lightheadedness with any exertion; she reports that over the weekend prior to arrival, she tried to get dressed, and this "took a lot out of her". Her exertional dyspnea and lightheadedness have fully resolved at this time. She denies any SOB at rest or BALDERAS. Patient does not use supplemental oxygen at baseline. No prior history of NICKY to her knowledge. No prior use of CPAP. However, she does have a home pulse oximeter, and was advised to check her oxygen saturation regularly as she lives alone. Patient manages her own medications at home; when asked what she takes in daily basis, she says she has a "paper" that tells her what to take in the morning, and what to take at night. She denies any missed doses of Lasix at home. ROS: Patient endorses dry cough and increased urinary frequency (which she attributes to the Lasix). Patient denies chest pain, pleuritic CP, SOB at rest, BALDERAS, abdominal pain, N/V/D, burning with urination, or blood in the urine or stool. Re-assessed patient at 1500 regarding discharge disposition: Patient unable to going home on supplemental oxygen. While she is feeling good from medical perspective, she reports that she has no one available to pick her up from the hospital today. Her son is currently working at the [employer] [facility] football game today, but will not be able to transport her home until tomorrow. Review of Systems Review of Systems: See HPI above Physical Exam Physical Exam: General: no acute distress; pleasant affect; non-toxic appearing; frail- appearing; cooperative; SpO2 92% on RA HEENT: normocephalic, atraumatic; PERRLA; vision and hearing intact Neck: supple; trachea midline Skin: warm, dry without signs of tenting; no cyanosis; no rashes, bruising, lesions, or erythema noted CV: chest wall NTP; RRR; S1/S2 normal; no murmurs/rubs/gallops; pulses intact and symmetric at radial, DP, and PT Lungs: no acute respiratory distress; symmetrical chest wall expansion; clear breath sounds across all lung horner w/o adventitious sounds; no wheezing ABD: Soft, NTP; BS present; no rebound/guarding; no distention MSK: Resting essential tremor; no edema noted in the LEs b/l, nonerythematous Neuro: A&Ox3; normal mood and affect; somewhat dysphonic speech; sensation intact and symmetric in the LEs b/l Results & Data Results & Data Vital Signs (Past 12 Hours) Vital Signs Temp Pulse Pulse Pulse Pulse Pulse Resp 05/21/25 11:20 36.7 C 79 18 05/21/25 10:57 100 H 102 H 96 H 71 05/21/25 10:42 05/21/25 07:04 36.5 C 70 18 05/21/25 03:28 36.6 C 77 20 Resp Resp Resp Resp BP Pulse Ox Pulse Ox 05/21/25 11:20 135/80 92 05/21/25 10:57 18 18 16 16 95 05/21/25 10:42 05/21/25 07:04 130/77 95 05/21/25 03:28 135/83 94 Pulse Ox Pulse Ox Pulse Ox O2 Del Method O2 Flow Rate O2 Flow Rate 05/21/25 11:20 Room Air 05/21/25 10:57 86 L 92 92 2 05/21/25 10:42 Nasal Cannula 2 05/21/25 07:04 Nasal Cannula 2 05/21/25 03:28 Nasal Cannula 2 PG Care Time/CCT Total # of Minutes Spent Total Time Spent with Patient: Total time spent is greater than 50% in coordination of care (as documented) at patient's floor/unit and/or counseling patient: C[place] [address] SUB INP/OBS CARE 3/50MIN Patient Type Established History Comprehensive Exam Comprehensive Medical Decision Making High Complexity Diagnoses CHF exacerbation I50.9 Type 2 diabetes mellitus without complication, without long-term current use of insulin E11.9 Diabetes mellitus snf insulin use: without director long term care use Diabetes mellitus complication status: without complication Essential hypertension I10 Hypertension type: essential hypertension Hyperlipidemia, unspecified hyperlipidemia type E78.5 Hyperlipidemia type: unspecified (2) Type 2 diabetes mellitus Diabetes mellitus snf insulin use: without snf use Diabetes mellitus complication status: without complication Qualified Code(s): E11.9 - Type 2 diabetes mellitus without complications (3) Hypertension Hypertension type: essential hypertension Qualified Code(s): I10 - Essential (primary) hypertension (4) Hyperlipidemia Hyperlipidemia type: unspecified Qualified Code(s): E78.5 - Hyperlipidemia, unspecified
[2025-05-21 19:42] VITALS: RESP 17
[2025-05-22 05:47] LABS: Hematocrit (blood only) 41.6 % (37.0-47.0); Hemoglobin 14.1 g/dl (12.0-16.0)
[2025-05-22 06:04] LABS: Anion Gap 5.0 (3-11); Blood Urea Nitrogen 15.0 mg/dl (6-23); Calcium 9.2 mg/dl (8.6-10.3); Carbon Dioxide 33.0 mmol/L (21-32); Chloride 101.0 mmol/L (98-107); Creatinine Clr Calc Pharmacy 51.3 ml/min; Glucose 137.0 mg/dl (70-99(Fasting)); Magnesium 1.7 mg/dl (1.7-2.4); Potassium 4.8 mmol/L (3.5-5.1); Sodium 139.0 mmol/L (136-145)
--- NOTE | 2025-05-22 08:00 | Discharge Summary ---
Discharge Summary Date of Service May 22, 2025 Principal Dx & Hospital Course #1 = Principal Diagnosis (1) Acute heart failure with preserved ejection fraction (HFpEF): (2) Type 2 diabetes mellitus: (3) Hypertension: (4) Hyperlipidemia: Plan 88yo female with chronic diastolic CHF, third-degree AV block with pacemaker, AAA, arthritis, urinary continence, GERD, Hyperlipidemia, HTN, permanent a.fib on Eliquis, and T2DM. Presented with decompensated CHF. Patient lives at [facility]. #Acute on chronic HFpEF Clinically improving/resolving Weight today is significantly down - at least 7-8kg since admission - and the lowest weight in the computer in a long time Cont BID IV lasix - 40mg am, 20mg pm Daily BMP while inpatient Echo 09/2024 - preserved EF, moderate pulm HTN Repeat limited echocardiogram on 05/20 revealed LVEF at >70%; no regional wall motion abnormalities; severe biatrial dilation; elevated RSVP at 55 mm Hg Presently, she is still requiring oxygen at this point as she appears close to euvolemia Perhaps pulmonary HTN has worsened? Repeat limited echocardiogram ordered on 05/20 Per nursing staff, patient has been dropping to the high 80% SpO2 range when sleeping; patient denies prior history of NICKY Two step with respiratory therapy performed on 05/21; patient meets requirements for supplemental home oxygen with ambulation New Rx: 2L NC to be used with ambulation and at bedtime Explained to patient that this could also be while she is resting, if her SpO2 drops to less than 90% Patient reports she has a home pulse oximeter Provided education to patient on when to use some oxygen (activity, ambulation, and when sleeping at bedtime), and mentioned that the patient can also use it at rest if she ever drops below 90% Per intial PT eval on 05/20, patient is close to her baseline level of function; plan for patient return to apartment once meeting outline PT goals Clinically, patient denies feeling unsteady on her feet, and reports her symptoms have largely resolved Will plan for discharge back to the [facility] on 05/22 #Asymptomatic bacteriuria No LUTS, dysuria, fevers, or abdominal symptom Antibiotics deferred #T2DM A1c 7.5% this admission BSGs < 200 Pharmacy glycemic consult discontinued on 05/14 as her sugars have looked good on her current inpatient regimen Restart home regimen upon discharge #History of atrial fibrillation Pacemaker in place Continue apixaban, metoprolol succ, diltiazem CD Last pacer interrogation January 2025 - in afib 100% of the time TSH WNL #HTN Continue meto succ 100mg daily, enalapril 10mg daily, diltiazem CD 180mg daily #Essential HTN/dysphonic speech Cont meto succ #Hypokalemia | hypomagnesemia Continue to monitor; replete PRN Date of discharge 05/22: Patient is mildly hypertensive at 142/85; SpO2 92% on RA; vitals otherwise stable. Mrs. Reyes is in good spirits this morning. She reports that her symptoms that she had on "Friday" have all resolved. No lightheadedness or dyspnea on exertion when walking. She reports she feels steady on her feet. She slept well last night, and had a good breakfast this morning. Patient feels ready and eager to return home to the [facility] today. ROS: Patient denies fevers overnight, lightheadedness/dizziness with walking, feeling off balance, chest pain, chest palpitations, SOB, BALDERAS, cough, pleuritic CP, abdominal pain, N/V/D, lower extremity pain or weakness, or change in urinary bowel habits. Disposition: Discharge back to the [facility] on 05/22; family available for transport Notes For Next Care Provider Patient was hospitalized for acute on chronic HFpEF. She was diuresed and subsequently lost 7 to 8 kg. While her symptoms fully resolved in the hospital, she was noted to have oxygen saturation of 86 to 89% on ambulation. Her oxygen saturation also dropped to the high 80% range whenever she slept or took a nap. No prior history of NICKY to her knowledge. A two-step was performed, and she is qualified for home oxygen. Will plan to send patient home on supplemental oxygen to be used for ambulation, as well as at nighttime. Patient is agreeable to this plan, and received education prior to discharge. Admission HPI Per Admitting Provider 89 yo female in a patient with HFpEF, DM2, presents to the hospital with SOB, orthopnea, dyspnea on exertion. She reports having shortness of breath for 2 weeks. Patient states she has been ignoring this, but states that this was just getting worse. She does follow with the HF clinic. Due to worsening symptoms, patient decided to come to the ED. Patient denies any fever, chill,s nausea, vomiting. rash, headache, productive cough, chest pain, diarrhea, focal weakness, dysuria. Admission Exam Per Admitting Provider Constitutional: WD/WN, vitals as above Eyes: PERRL, conjunctivae normal, anicteric sclerae Neck: trachea midline, no thyromegaly Respiratory: + uses accessory muscles Auscultation: + rales Cardiovascular: RRR, no murmur, no edema Gastrointestinal (Abdomen): normal bowel sounds, soft, nontender, no hepatosplenomegaly Musculoskeletal: no cyanosis or clubbing, extremities motor strength 5/5 Neurologic: PERRL, EOMI, accommodation nl, no face palsy, no dysarthria Psychiatric: A+Ox3, euthymic affect Discharge Exam General: no acute distress; pleasant affect; non-toxic appearing; frail- appearing; cooperative; SpO2 92% on RA HEENT: normocephalic, atraumatic; PERRLA; vision and hearing intact Neck: supple; trachea midline Skin: warm, dry without signs of tenting; no cyanosis; no rashes, bruising, lesions, or erythema noted CV: chest wall NTP; RRR; S1/S2 normal; no murmurs/rubs/gallops; pulses intact and symmetric at radial, DP, and PT Lungs: no acute respiratory distress; symmetrical chest wall expansion; clear breath sounds across all lung horner w/o adventitious sounds; no wheezing ABD: Soft, NTP; BS present; no rebound/guarding; no distention MSK: Resting essential tremor; no edema noted in the LEs b/l, nonerythematous Neuro: A&Ox3; normal mood and affect; somewhat dysphonic speech; sensation intact and symmetric in the LEs b/l Discharge Plan Discharge Items Patient Disposition: Personal Nursing Home Reason For Visit: CHF EXACERBATION Discharge Diagnosis: Acute HFpEF, hypoxia Condition on Discharge: Fair Activity: Resume your previous activity Non-emergency contact: Primary Care Provider Call non-emergency contact if: you have any medication questions, your symptoms worsen, your pain is not controlled and you have a fever Follow-up/Referrals: ProGarrett MD [Primary Care Provider] - Ana Casas PA-C [Physician Block Engraver] - 05/30/25 1:00 pm Diet: Carb Consistent or DM2, Heart Healthy and Low Sodium (2gm) Addtl Attending Provider Instructions: You were hospitalized at [facility] from 05/16 - 05/22 due to worsening shortness of breath x 2 weeks. On arrival, you were found to be in an episode of acute heart failure. This was illustrated by your blood work, chest x-ray, and recent weight. Over the course of your hospitalization, you were treated with an IV diuretic ("Lasix"), and your weight decreased around 7 to 8 kg. You also reported that your lightheadedness / trouble breathing when walking had fully resolved. A repeat echocardiogram while in the hospital revealed no changes in the structure of your heart when compared to prior echocardiograms. At time of discharge, your vitals are currently stable. Our respiratory therapy team saw you the day prior to discharge, and determined that your oxygen saturation is still dropping to less than 90% when you are up walking around. For these reasons, we feel that you will be safe to return home at this time so long as you have supplemental oxygen that you can use when you are up walking around. New prescription on discharge: - Supplemental oxygen (2 L via nasal cannula) to be used with physical exertion/activity, as well as at bedtime Note: You can also use supplemental oxygen as needed if you ever find that your oxygen saturation is less than 90%. You reported that you have a home pulse oximeter (which is the small device that you put on your finger to measure oxygen saturation. If you do not have this device, he can easily be obtained at your local pharmacy or through a online vendor. It is important to consistently take your furosemide ("Lasix"), or "water pill" tablets, at home. It is also recommended that you maintain a low-salt diet and monitor your weight periodically, as increased weight could be indicative of fluid buildup. Please plan to follow-up with your PCP in the next 7 to 10 days for a transitional care appointment. We also have a scheduled appointment for you to see the heart failure clinic on May 30, 2025. If you develop any new or worsening symptoms, such as fever, chills, chest pain, trouble breathing, lightheadedness, falls, leg swelling, or decreased urinary output, please return to the emergency department immediately. It was a pleasure take care of you. Please reach out with any questions or concerns. Sincerely, The Hospitalist team at [facility] Pending Studies at Discharge: No Stand-Alone Forms: My [facility] Skilled Items Patient informed of condition?: Yes DNR: Yes Discharge Level of Care: Skilled Communicable Disease: No Discharge Prognosis: Improving Lines: None Urinary Catheter: No Medications and DC Order Prescriptions: New (DME) Oxygen Home Liters Per Minute See Rx Instructions .Route Qty: 1 0RF Rx Instructions: As directed Continued Eliquis 5 mg tablet 5 mg PO BID Qty: 180 3RF omeprazole 20 mg tablet,delayed release (DR/EC) 20 mg PO Q2D Qty: 90 3RF sertraline 25 mg tablet 25 mg PO DAILY Qty: 90 3RF metoprolol succinate [Toprol XL] 100 mg tablet extended release 24 hr 100 mg PO DAILY Qty: 90 3RF enalapril maleate 10 mg tablet 10 mg PO QAM Qty: 90 3RF (DME) OneTouch Ultra Test Strip See Rx Instructions .Route Qty: 200 3RF Rx Instructions: Test blood sugars twice a day (DME) lancets 30 gauge misc .ROUTE .MEDSUPPLY Qty: 200 3RF Rx Instructions: Test blood sugar twice a day (OneTouch Delica) diltiazem HCl [Tiazac] 180 mg capsule,extended release 24hr 180 mg PO QAM Qty: 90 1RF atorvastatin 40 mg tablet 40 mg PO Q OTHER DAY Qty: 90 3RF furosemide [Lasix] 20 mg tablet 40 mg PO DAILY Qty: 180 3RF Hold Instructions: urinary incontinence amoxicillin 500 mg capsule 2,000 mg PO DAILY PRN (Reason: Prophylaxis) multivitamin Tablet 1 tab PO DAILY cranberry 500 mg Capsule 500 mg PO QAM Caltrate 600 plus D 600 mg (1,500 mg)-800 unit Tablet,Chewable 1 tab PO BID Prolia 60 mg/mL syringe 60 mg subcut Q6MO cholecalciferol (vitamin D3) [Vitamin D3] 2,000 unit tablet 2,000 unit PO DAILY Patient Comments: with largest meal Rx Instructions: take with largest meal of day omega-3 fatty acids 1,000 mg Capsule 1,000 mg PO QAM Acidophilus Tablet,Chewable 1 tab PO DAILY glipizide 5 mg tablet extended release 24hr 0 mg PO QPM Patient Comments: Last filled 10/2024 x90 day supply. On pt's home med list. Original Directions: 5mg by mouth daily. 05/16/25 Discharge Orders: Discharge Order (Routine); Ordered 05/22/25 Ordered By: Tacho Moy/Other Patient Handouts: Managing Type 2 Diabetes, Using an Oxygen Tank at Home Admission Data Admit Date/Time: 05/16/25 13:29 Attending Provider: Enrique Lu Admit Provider: Skinny Aragon Primary Care Provider: Garrett Rosales Other Providers: Skinny Aragon Hospital Stay Data Consultations 05/16/25 13:19 ED Decision to Admit Stat Pending Results Patient Have Any Pending Studies at Discharge: No Discharge Instructions Given to Patient (Per Discharging Provider) You were hospitalized at [facility] from 05/16 - 05/22 due to worsening shortness of breath x 2 weeks. On arrival, you were found to be in an episode of acute heart failure. This was illustrated by your blood work, chest x-ray, and recent weight. Over the course of your hospitalization, you were treated with an IV diuretic ("Lasix"), and your weight decreased around 7 to 8 kg. You also reported that your lightheadedness / trouble breathing when [place] had fully resolved. A repeat echocardiogram while in the hospital revealed no changes in the structure of your heart when compared to prior echocardiograms. At time of discharge, your vitals are currently stable. Our respiratory therapy team saw you the day prior to discharge, and determined that your oxygen saturation is still dropping to less than 90% when you are up walking around. For these reasons, we feel that you will be safe to return home at this time so long as you have supplemental oxygen that you can use when you are up walking around. New prescription on discharge: - Supplemental oxygen (2 L via nasal cannula) to be used with physical exertion/activity, as well as at bedtime Note: You can also use supplemental oxygen as needed if you ever find that your oxygen saturation is less than 90%. You reported that you have a home pulse oximeter (which is the small device that you put on your finger to measure oxygen saturation. If you do not have this device, he can easily be obtained at your local pharmacy or through a online vendor. It is important to consistently take your furosemide ("Lasix"), or "water pill" tablets, at home. It is also recommended that you maintain a low-salt diet and monitor your weight periodically, as increased weight could be indicative of fluid buildup. Please plan to follow-up with your PCP in the next 7 to 10 days for a transitional care appointment. We also have a scheduled appointment for you to see the heart failure clinic on May 30, 2025. If you develop any new or worsening symptoms, such as fever, chills, chest pain, trouble breathing, lightheadedness, falls, leg swelling, or decreased urinary output, please return to the emergency department immediately. It was a pleasure take care of you. Please reach out with any questions or concerns. 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
[2025-05-22 10:37] VITALS: BP 120/78; TEMP 98.1; O2SAT 93
[2025-05-22 11:12] VITALS: PULSE 70
== END 2025-05-22 13:28 | disposition home or self-care (01) | DRG 291 ==
LOC: ED 12:08 → 2S 13:29 → SUATTDRO 13:29 → 2S 14:16